=== PATIENT | male | born 1955 | race Caucasian/White ===

== ENCOUNTER 2018-01-21 15:12 | Outpatient (CLI) | payer OTHER, SELFPAY ==
[2018-01-21 15:55] LABS: HCT 40.4 % (40.0-50.0); HGB 13.5 g/dL (13.5-17.5); Mean Corp. HGB Concentration 33.4 g/dL (32.0-36.0); Mean Corpuscular Hemoglobin 31.8 pg (27.0-33.0); Mean Corpuscular Volume 95.1 fL (80-95); Mean Platelet Volume 10.6 fL (8.0-11.0); Platelet Count 253 x1000/uL (130-400); RBC 4.25 m/cumm (4.50-6.00); RBC Distribution Width 12.5 % (11.8-14.1); White Blood Cell Count 6.29 k/cumm (4.4-10.8)
[2018-01-21 17:23] LABS: ALT 32 U/L (12-78); AST 21 U/L (15-37); Alkaline Phosphatase 80 U/L (46-116); Amylase 66 U/L (25-115); Anion Gap 8.3 mmol/L (3-11); BUN 16 mg/dL (7-18); Bilirubin, Total 0.4 mg/dL (0.2-1.0); CO2 28.7 mmol/L (21.0-32.0); CREATININE 0.92 mg/dL (0.70-1.30); Calcium 9.6 mg/dL (8.5-10.1); Chloride 104 mmol/L (98-107); Glucose 89 mg/dL (70-100); Lipase 97 U/L (73-393); Potassium 4.8 mmol/L (3.5-5.1); Sodium 141 mmol/L (136-145); Total Protein 7.2 g/dL (6.4-8.2)
== END 2018-01-21 15:32 ==
PROVIDERS: PCP Nurse Practitioner; Visit Provider Nurse Practitioner
DX: R14.0 Abdominal distension (gaseous) (principal); K52.9 Noninfective gastroenteritis and colitis, unspecified
CPT/HCPCS: 36415; 80053; 83690; 85027; 82150

== ENCOUNTER 2018-02-26 08:29 | Emergency (ER) | payer OTHER, SELFPAY ==
[2018-02-26 08:34] VITALS: BP 160/96; PULSE 75; RESP 16; TEMP 36.2; O2SAT 98
--- NOTE | 2018-02-26 08:42 | W.ED.GENAD ---
Discharge Plan Disposition Patient Disposition: HOME Condition: Improving Discharge Details Chief Complaint: RespSymp Clinical Impression: Acute maxillary sinusitis Primary Care Provider: Kalli Morgan ED Provider: Zach Sneed Home Meds and New Rx's Prescriptions: New amoxicillin-pot clavulanate 875-125 mg tablet 1 tab PO BID 10 Days Qty: 20 RF: 0 Continue fluticasone 50 mcg/actuation spray,suspension 1 spray JAREK DAILY RF: 0 oxycodone-acetaminophen 5-325 mg tablet 1 tab PO BID MDD 2 tabs PRN (Reason: chronic pain) Qty: 60 RF: 0 ibuprofen 800 MG tablet 800 mg PO TID PRNQty: 90 RF: 11 amlodipine 10 MG tablet 10 mg PO DAILY Qty: 90 RF: 3 fluoxetine 20 MG capsule 20 mg PO DAILY RF: 0 losartan 100 MG tablet 100 mg PO DAILY 60 Days Qty: 60 RF: 3 Discharge Instructions Instructions: Sinusitis (ED) Additional Instructions: Home to rest today. Tylenol as needed for aches, pains, fever. May use Benadryl 25-50 mg at bedtime for sleep and to aid in decongestion. Liberally hydrate with fluids. Return if you have worsening symptoms or any other concerns. Continue your regular medications Medical Decision Making 62-year-old male with a history of recurrent and frequent sinus infections states that he has had 7-10 days of bilateral frontal sinus pain and pressure that followed a URI. No stiff neck or fever. No vomiting. He has not fallen or hurt himself in any way. Exam is consistent with acute maxillary sinusitis. I will place him on a course of Augmentin. Discussed with him home care as well as return precautions. He is stable for discharge at this time HPI General Mode of arrival: ambulatory. Date/Time Provider Initiated Documentation: 02/26/18 08:30. Limitations to Documentation: no limitations. Information obtained by: patient. History of Present Illness 62 year old M presents to the emergency department with the chief complaint of Bilateral frontal sinus pressure and congestion for 8-10 days following URI, described as moderate, Quality is described as aching, Patient reports no radiation. Patient started experiencing this day(s) and it has been constant. No relieving factors improve symptom(s), No exacerbating factors reported . Related Data Home Medications Medication Instructions Recorded Confirmed ibuprofen 800 mg PO TID PRN #90 tab-cap 01/25/17 02/26/18 amlodipine 10 mg PO DAILY #90 tab-cap 04/19/17 02/26/18 fluoxetine 20 mg PO DAILY tab-cap 06/12/17 02/26/18 losartan 100 mg PO DAILY 60 Days #60 tab-cap 10/05/17 02/26/18 fluticasone 50 mcg/actuation nasal 1 spray JAREK DAILY 11/29/17 02/26/18 spray,suspension oxycodone-acetaminophen 5 mg-325 1 tab PO BID PRN #60 tab MDD 2 tabs 02/21/18 02/26/18 mg tablet amoxicillin-pot clavulanate 1 tab PO BID 10 Days #20 tab 02/26/18 Previous Rx's Medication Instructions Recorded amlodipine 10 mg PO DAILY #90 tab-cap 04/19/17 losartan 100 mg PO DAILY 60 Days #60 tab-cap 10/05/17 oxycodone-acetaminophen 5 mg-325 1 tab PO BID PRN #60 tab MDD 2 tabs 02/21/18 mg tablet amoxicillin-pot clavulanate 1 tab PO BID 10 Days #20 tab 02/26/18 Allergies Allergy/AdvReac Type Severity Reaction Status Date / Time chlorthalidone AdvReac Intermediate PINON and Unverified 02/26/18 08:36 syncope sertraline AdvReac Intermediate diarrhea Unverified 02/26/18 08:36 lisinopril AdvReac Mild cough Unverified 02/26/18 08:36 General Stated Complaint: RespSymp JOHANNA: 4 Review of Systems Review of Systems 8 systems reviewed and otherwise negative PFSH Family History Father Personal history of malignant neoplasm Lithotripsy Family History Father Personal history of malignant neoplasm Social History current occupational status: employed 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 Pleasant, well groomed, interactive. HEAD: Normocephalic, atraumatic ENT: Mucous membranes moist, oropharynx unremarkable, External ear exam unremarkable, tympanic membranes congested but not distended erythematous. Bilateral maxillary sinus tenderness to percussion EYES: PERRL, EOMI NECK: Full ROM, no CAMERON, no menigismus CHEST/RESP: Nontender, clear to auscultation bilateral, no wheeze/rhonchi/rales CARDIOVASCULAR: RRR, no murmur, rub peng. 2+ Rad pulse bilateral ABDOMEN: Soft, nontender, no mass. +Bowel sounds EXT: Full ROM, no edema, no rash Neuro: Grossly normal neurologic exam, conversant, interactive. Psych: Speech fluent, thoughts congruent, affect normal Course Vital Signs Temperature 36.2 C L 02/26/18 08:34 Pulse 75 02/26/18 08:34 Respiratory Rate 16 02/26/18 08:34 Blood Pressure 160/96 H 02/26/18 08:34 Pulse Oximetry 98 02/26/18 08:34 Temperature 36.2 C L 02/26/18 08:34 Temperature Source Skin 02/26/18 08:34 Pulse 75 02/26/18 08:34 Respiratory Rate 16 02/26/18 08:34 Respiratory Effort Non-Labored 02/26/18 08:34 Blood Pressure 160/96 H 02/26/18 08:34 Blood Pressure Position Sitting 02/26/18 08:34 Pulse Oximetry 98 02/26/18 08:34 Oxygen Delivery Method Nasal Cannula 02/26/18 08:34 Pain Level 9 02/26/18 08:34
== END 2018-02-26 08:56 | disposition home or self-care (01) ==
LOC: ER 09:08
PROVIDERS: Emergency Provider Emergency Medicine; PCP Nurse Practitioner
DX: J01.00 Acute maxillary sinusitis, unspecified (principal); I10 Essential (primary) hypertension
CPT/HCPCS: 99283

== ENCOUNTER 2018-06-11 08:02 | Emergency (ER) | payer OTHER, SELFPAY ==
[2018-06-11 08:05] VITALS: BP 191/91; PULSE 86; RESP 20; TEMP 36.7; O2SAT 98
--- NOTE | 2018-06-11 08:33 | ED.GENADUL_ITS ---
Discharge Plan Disposition Patient Disposition: HOME Condition: Stable Discharge Details Chief Complaint: Nk/Back Pain Clinical Impression: Otitis media, Cervical paraspinal muscle spasm Primary Care Provider: Kalli Morgan ED Provider: Morena Magana Home Meds and New Rx's Prescriptions: New amoxicillin 500 mg capsule 500 mg PO TID 10 Days Qty: 30 RF: 0 Continued fluticasone propionate 50 mcg/actuation spray,suspension 1 spray JAREK DAILY RF: 0 amlodipine 10 MG tablet 10 mg PO DAILY Qty: 90 RF: 3 fluoxetine 20 MG capsule 20 mg PO DAILY RF: 0 losartan 100 MG tablet 100 mg PO DAILY 60 Days Qty: 60 RF: 3 ibuprofen 800 mg tablet 800 mg PO TID PRN (Reason: pain) Qty: 270 RF: 3 betamethasone dipropionate 0.05 % ointment 1 applic TP BID PRN (Reason: rash arms) Qty: 45 RF: 1 oxycodone-acetaminophen 5-325 mg tablet 1 tab PO BID MDD 2 tabs PRN (Reason: chronic pain) Qty: 46 RF: 0 Discharge Instructions Instructions: Cervical Strain (ED), Otitis Media (ED) Additional Instructions: Alternate Tylenol and Motrin as needed and directed for pain. Take the antibiotics until finished. Follow-up with your primary care doctor in 2 days for reevaluation and for referral to ENT if your symptoms do not improve or worsen. Return immediately to the emergency department any worsening or concerning symptoms. Discharge Data Discharge Physician: Morena Magana Medical Decision Making 63-year-old male with a history of hypertension, high cholesterol depression who presents with left ear pain for the past week and now with radiation down into his left neck. 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 States his symptoms are similar to previous ear infection in the past. He denies fever, headache, anterior or right-sided neck pain, sore throat, cough, decreased hearing or ear drainage. He does admit to mild tinnitus chronically. Blood pressure hypertensive, remainder vitals within normal limits. Afebrile. Patient appears nontoxic. Patient easily ambulatory in the ED. Patient's left TM appears dull without erythema, drainage. He has narrow bilateral external auditory canals. There is no tenderness palpation of tragus or pain with pulling on auricle and not consistent with otitis externa. He has tenderness palpation of his left lateral neck but no obvious boggy lymphadenopathy, no submitted for swelling, no drooling, no trismus, no periauricular adenopathy, no tenderness to palpation, edema, or erythema of left mastoid. He has reproducible pain in his left neck with movement of his head. Discussed with patient that his symptoms could be due to a viral ear infection, which may resolve with Tylenol Motrin and time. As his symptoms have been present for a week, discussed that this may be an early bacterial infection. His left-sided neck pain appears musculoskeletal likely due to cervical muscle spasm due to radiation of pain from his left ear. Will send home with prescription for antibiotics. Patient instructed to alternate Tylenol Motrin. He is instructed to follow with his primary care doctor for reevaluation and for consideration of steroids and/or referral to ENT if his symptoms do not improve. Just prior to discharge, patient's blood pressure 181/102. He states he did take his blood pressure medication today. Again he denies any headache, chest pain, shortness of breath and has no focal deficits. He states he will follow- up with his primary care doctor for this. Patient instructed return to the emergency department any worsening or new concerning symptoms. HPI General Mode of arrival: ambulatory . Date/Time Provider Initiated Documentation: 06/11/18 08:16 . Limitations to Documentation: no limitations . Information obtained by: patient . HPI Narrative: Patient is a 63-year-old male with a history of hypertension, high cholesterol depression who presents with left ear pain for the past week. Patient states he wears earplugs throughout the day while at work due to mild machinery. He states he is taking earplugs in and out of the ear multiple times throughout the day. Patient states he has had an ear infection in the past before and states this feels similar. He states the inner ear pain has improved somewhat, and now mainly has pain extending down his neck from his left ear. He states the pain is worse with movement of his head. He denies any fever, headache, decreased hearing, or drainage. He admits to mild tinnitus. He states he took ibuprofen last night for pain. He denies any sore throat, coughing and states he has been able to eat and drink normally. Related Data Home Medications Medication Instructions Recorded Confirmed amlodipine 10 mg PO DAILY #90 tab-cap 04/19/17 06/11/18 fluoxetine 20 mg PO DAILY tab-cap 06/12/17 06/11/18 losartan 100 mg PO DAILY 60 Days #60 tab-cap 10/05/17 06/11/18 fluticasone propionate 50 1 spray JAREK DAILY 11/29/17 06/11/18 mcg/actuation nasal spray,suspension ibuprofen 800 mg tablet 800 mg PO TID PRN #270 tab-cap 04/17/18 06/11/18 betamethasone dipropionate 0.05 % 1 applic TP BID PRN #45 gm 05/16/18 06/11/18 topical ointment oxycodone-acetaminophen 5 mg-325 1 tab PO BID PRN #46 tab MDD 2 tabs 05/16/18 06/11/18 mg tablet amoxicillin 500 mg PO TID 10 Days #30 cap 06/11/18 Previous Rx's Medication Instructions Recorded amlodipine 10 mg PO DAILY #90 tab-cap 04/19/17 losartan 100 mg PO DAILY 60 Days #60 tab-cap 10/05/17 ibuprofen 800 mg tablet 800 mg PO TID PRN #270 tab-cap 04/17/18 betamethasone dipropionate 0.05 % 1 applic TP BID PRN #45 gm 05/16/18 topical ointment oxycodone-acetaminophen 5 mg-325 1 tab PO BID PRN #46 tab MDD 2 tabs 05/16/18 mg tablet amoxicillin 500 mg PO TID 10 Days #30 cap 06/11/18 Allergies Allergy/AdvReac Type Severity Reaction Status Date / Time chlorthalidone AdvReac Intermediate PINON and Verified 06/11/18 08:09 syncope sertraline AdvReac Intermediate diarrhea Verified 06/11/18 08:09 lisinopril AdvReac Mild cough Verified 06/11/18 08:09 General Stated Complaint: Nk/Back Pain JOHANNA: 3 Review of Systems Review of Systems All systems reviewed & are unremarkable except as noted in HPI and below Constitutional Reports as per HPI, Denies chills and Denies fever(s) Eyes Denies blurry vision ENT Denies dizziness, Denies sore throat and Denies throat swelling Cardiovascular Denies chest pain and Denies dyspnea Respiratory Denies cough and Denies dyspnea Gastrointestinal Denies abdominal pain, Denies diarrhea and Denies vomiting Genitourinary Denies hematuria and Denies dysuria Musculoskeletal Denies back pain and Denies numbness Integumentary/Breasts Denies lesions and Denies rash Neurologic Denies dizziness, Denies focal weakness and Denies numbness Allergic/Immunologic Denies throat swelling [facility] Medical History Hyperlipemia (Acute) Depression (Chronic) HTN (hypertension) (Chronic) Surgical History Hx of lithotripsy (Acute) Lithotripsy Family History Father Personal history of malignant neoplasm Social History Smoking/Tobacco Use Status: Former Tobacco Use Alcohol Intake: current Alcohol Intake frequency: 3 or more drinks per day [place] type: beer Drug use: Occasionally Substance use type: marijuana 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[employer], 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 What type of physical activity do you participate in: walking Do you feel safe at home: Yes Do you feel safe in your relationship?: Yes Exam Const General: cooperative, healthy appearing and no acute distress HENMT Head: normal to inspection Ears: hearing grossly normal bilaterally, external ears normal, mastoids normal bilaterally, no periauricular adenopathy, TM abnormal dull on the left; not with effusion and not erythematous and other (b/l external auditory canals narrow, no erythema, drainage, rash) General nose exam: external nose normal and nares normal Face and sinus: normal facial exam and sinuses nontender Mouth: oral mucosae normal, no drooling and no trismus Teeth and gingiva: dentition normal Throat: posterior oropharynx normal Eyes General: appearance normal, both eyes and all related structures Periorbital: periorbital findings normal Conjunctivae: conjunctivae normal Sclera: sclerae normal EOM: EOM intact bilaterally Neck Neck: normal visual inspection, full ROM, no lymphadenopathy, no meningeal signs, trachea midline, supple and No submandibular swelling Resp Effort & Inspection: normal respiratory effort and able to speak in complete sentences Auscultation: clear to auscultation bilaterally Cardio Rate: regular rate Rhythm: regular rhythm Skin General skin exam: no rashes or lesions noted Neuro General: alert, awake and oriented x3 Motor: muscle tone normal throughout Extrem General: normal to inspection and full ROM Psych Appearance: grossly normal Affect: normal affect Course Vital Signs Temperature 98.1 F 06/11/18 08:05 Pulse 86 06/11/18 08:05 Respiratory Rate 20 06/11/18 08:05 Blood Pressure 191/91 H 06/11/18 08:05 Pulse Oximetry 98 06/11/18 08:05 Temperature 98.1 F 06/11/18 08:05 Temperature Source Temporal Artery Scan 06/11/18 08:05 Pulse 86 06/11/18 08:05 Respiratory Rate 20 06/11/18 08:05 Respiratory Effort Non-Labored 06/11/18 08:05 Blood Pressure 191/91 H 06/11/18 08:05 Blood Pressure Position Sitting 06/11/18 08:05 Pulse Oximetry 98 06/11/18 08:05 Pain Level 8 06/11/18 08:05
[2018-06-11 08:53] VITALS: BP 181/102; PULSE 80; RESP 16; TEMP 37.2; O2SAT 96
== END 2018-06-11 08:56 | disposition home or self-care (01) ==
LOC: ER 08:53
PROVIDERS: Emergency Provider Physician Assistant; PCP Nurse Practitioner
DX: H66.92 Otitis media, unspecified, left ear (principal); M62.838 Other muscle spasm; I10 Essential (primary) hypertension
CPT/HCPCS: 99283

== ENCOUNTER 2019-04-30 07:00 | Outpatient (CLI) | payer OTHER, SELFPAY ==
[2019-04-30 08:20] LABS: ALT 40 U/L (16-63); AST 22 U/L (15-37); Albumin 3.9 g/dL (3.4-5.0); Alkaline Phosphatase 87 U/L (46-116); Anion Gap 9.8 mmol/L (3-11); BUN 14 mg/dL (7-18); Bilirubin, Total 0.5 mg/dL (0.2-1.0); CO2 26.2 mmol/L (21.0-32.0); CREATININE 0.92 mg/dL (0.70-1.30); Calcium 9.2 mg/dL (8.5-10.1); Calculated LDL 144 mg/dL (<100); Chloride 107 mmol/L (98-107); Cholesterol 223 mg/dL (<200); Glucose 112 mg/dL (74-106); HDL Cholesterol 62 mg/dL (40-60); Potassium 4.8 mmol/L (3.5-5.1); Sodium 143 mmol/L (136-145); Total Protein 7.1 g/dL (6.4-8.2); Triglyceride 85 mg/dL (<150)
== END 2019-04-30 07:20 ==
PROVIDERS: PCP Nurse Practitioner; Visit Provider Nurse Practitioner
DX: I10 Essential (primary) hypertension (principal); E78.5 Hyperlipidemia, unspecified
CPT/HCPCS: 36415; 80053; 80061

== ENCOUNTER 2020-02-20 11:06 | Outpatient (CLI) | payer OTHER, SELFPAY ==
[2020-02-21 17:06] LABS: COVID-19 RT-PCR Result NEGATIVE (Negative)
== END 2020-02-20 11:26 ==
PROVIDERS: PCP Nurse Practitioner; Visit Provider Nurse Practitioner
DX: Z20.828 Contact with and (suspected) exposure to other viral communicable diseases (principal)
CPT/HCPCS: U0003

== ENCOUNTER 2020-06-24 08:24 | Outpatient (CLI) | payer BC, SELFPAY ==
[2020-06-25 16:17] LABS: COVID-19 RT-PCR UVMMC Result Negative (Negative)
== END 2020-06-24 08:25 | disposition home or self-care (01) ==
PROVIDERS: PCP Nurse Practitioner; Visit Provider Nurse Practitioner
DX: Z20.822 Contact with and (suspected) exposure to COVID-19 (principal)
CPT/HCPCS: U0003

== ENCOUNTER 2020-07-15 01:04 | Outpatient (CLI) | payer OTHER, BC, SELFPAY ==
--- NOTE | 2020-07-15 07:00 | DI.MRI_ITS ---
Exam(s) MR LUMBAR SPINE WO EXAM: MR LUMBAR SPINE WO CLINICAL HISTORY: Persistent pain and lower extremity weakness,LUMBAR PAIN WITH RAD DOWN LEG,. TECHNIQUE: Multiplanar multisequence MRI of the Lumbar spine was performed. COMPARISON: CR LUMBAR SPINE COMPLETE from 05/23/2012 CT RENAL COLIC WO CONTRAST from 05/07/2017 FINDINGS: Conus medullaris is at normal level. There is no evidence of conus mass nor subjacent clumping of in trathecal nerve roots to suggest arachnoiditis. The distal thecal sac appears unremarkable.There is no evidence of Tarlov intrasacral cysts nor other significant findings within the sacral canal. Bones:There are no compression fractures nor ominous osseous lesions. However, there is a Schmorl's node invagination in the posterior aspect of the inferior endplate of L 4 with some mild surrounding edema implying that this is recent. There is also mild edema in the subjacent superior half of L5 ve rtebral body with a should smaller Schmorl's node invagination in the mid aspect of the superior endp late of L5. No compression fracture. There are no ominous osseous lesions. With respect to the individual levels... T12-L1: Normal disc height and signal. Annular bulging but without a dominant disc herniation. Bouse l dimensions within normal limits. L1-2: Mild relatively uniform disc space narrowing. Shallow non acute Schmorl's node invagination in the mid inferior endplate of L1. Some posterior bony ridging is noted. There is broad annular bulg ing. This extends into the floor of the exiting left neural foramen but without significant foramina l stenosis on either side. Central canal dimensions are lower normal. Mild facet degenerative ayoub es. L2-3: This level exhibits preserved disc height and signal. There is mild narrowing of the disc spac e lateral left with a lateral left disc bulge at the level of the outer aspect of the exiting left ne ural foramen. However, there is no prominent foraminal stenosis the left side at this level. Exitin g right neural foramen is nicely patent. There is mild symmetrical annular bulging posteriorly which flattens the anterior aspect of the thecal sac. This results in mild central canal stenosis at this level. There are mild degenerative changes in both facet joints at this level. L3-4: There is moderate narrowing of the disc space at this level, more prominent posteriorly than an teriorly. There is broad annular bulging at this level which flattens the anterior aspect of the the angelique sac, resulting in mild-moderate central canal stenosis. The annular bulging extends into the rashel or of the exiting left neural foramen with overlying posterior bony ridging. There is mild left-side d foraminal stenosis. Also mild right-sided foraminal stenosis. Mild degenerative changes in the fa cet joints. L4-5: This level exhibits mild decreased disc height. As described above there is an acute or subacu te Schmorl's node invagination into the inferior endplate of L4 with surrounding edema and there is a lso smaller Schmorl's node in the adjacent superior endplate of L5 with some surrounding edema. At t his level there is relatively symmetrical broad annular bulging with resultant flattening of the ante rior aspect of the thecal sac, resulting in moderate-severe central spinal canal stenosis. There is a small superimposed central subligamentous disc protrusion. Laterally the bulging annulus extends i nto the floor of both exiting neural foramina. On the right side there is mild-moderate foraminal st enosis. On the left side there is no significant foraminal stenosis despite the annular bulging. Th e difference here is the more prominent facet arthropathy on the right side. L5-S1: This level exhibits advanced disc space narrowing and anterolateral osteophytes on the right s sobeida. There is subtle suggestion of partial left laminectomy defect at this level. There is posterio r bony ridging and broad annular bulging at this level. This annular bulging contacts the anterior a spect of the thecal sac but central canal dimensions are lower normal. With respect to the exiting n eural foramina, there is mild-moderate foraminal stenosis on the right side, this related to the adva nced disc height loss and some degenerative change in the facet joint. A lesser amount of foraminal stenosis noted on the left side due to lesser amount of arthropathy in the left facet joint. Soft tissues: Parapelvic cysts are noted in both kidneys. Please note the kidneys only partially in cluded in the field of view here. IMPRESSION: 1. Multilevel findings as described individually above. There is evidence of prior partial left lami nectomy at L5-S1 level. Despite all of the findings described above, there is no critical central sp inal canal stenosis nor severe foraminal stenosis. The most significant central canal stenosis is at the L4-5 level which is moderate or moderate-severe. This is the level which also exhibits some sub endplate marrow edema on both sides of this disc space due to subacute Schmorl's node invaginations as described above. 2. Multilevel asymmetric facet arthropathy. No listhesis evident. 3. This findings as above with a small central subligamentous disc protrusion superimposed upon the a nnular bulging at L4-5 level. However, there is noted prominent/dominant disc herniation here. 4. There is no evidence of abnormal fluid collection in the epidural and paraspinal region, given pr ior surgery here. 5. Incidentally noted are what appear to be bilateral parapelvic cysts in both kidneys. Please note the kidneys are only partially included in the field of view here. I note that prior abdominal CT s can performed April 2017 revealed a 4 millimeter calculus in the right ureteropelvic junction with ipsilateral hydronephrosis at that time. Parapelvic cysts were so evident in the kidneys at that ti me, these more prominent on the left side. DATA REPOSITORY:
== END 2020-07-15 01:24 ==
PROVIDERS: PCP Nurse Practitioner; Visit Provider Nurse Practitioner Family
DX: M54.5 Low back pain (principal); M79.605 Pain in left leg; Z98.890 Other specified postprocedural states; M51.17 Intervertebral disc disorders with radiculopathy, lumbosacral region; M51.46 Schmorl's nodes, lumbar region
CPT/HCPCS: 72148

== ENCOUNTER → 2021-10-03 00:44 | Outpatient (CLI) | payer OTHER, BC, SELFPAY ==
--- OUTSIDE RECORDS SUMMARY | 2021-10-03 00:46 | XMS_ITS | Encounter Summary ---
:1955 Author Organization [facility] [place] [address] Care Team Providers Name Role Phone Kalli Morgan Kurt JURADO Primary Care Provider Reason for Visit Reason Onset Date Comments TeleHealth 01/27/2021 Encounter Details Date Type Department Care Team Description 01/27/2021 Telephone [place] [facility] [place]oza [place] [facility] [place] [address] NEUROSURGERY [phone] [place], [place] [address] (Wo rk) Social History Tobacco Use Types Packs/Day Years Used Date Former Smoker Cigarettes Smokeless Tobacco: Never Used Sex Assigned at Date Recorded Not on file documented as of this encounter Miscellaneous Notes Telephone Encounter - Wendy Gonzalez RN - 01/27/2021 2:47 PM EST Spoke to this patient by phone to review their medications and allergies prior to their upcoming tele-appointment with the Neurosurgery provider. Medications and allergies reviewed, verified and updated as needed. 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
--- OUTSIDE RECORDS SUMMARY | 2021-10-03 00:46 | XMS_ITS | Encounter Summary ---
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, lumbar region Radiculopathy, lumbar region Kalli Morgan APRN Simmons, Nathan E, MD [address] [facility] [facility] [place], [place] NEUROSURGERY [id number] [place], [place] [id number] Fax: Referral ID Status Reason Start Expiration Visits Visits Date Date Requested Authorized [id number] Authorized Consult, 12/16/2020 12/16/2021 6 6 [facility] PCP Updated and/or Approved Encounter Details Date Type Department Care Team Description 02/01/2021 TH Visit Neurosurgery at [facility] King Cardoza Low back pain (TeleHealth) [facility] MD Steve radiating to left Drive [facility] [place] [place] [address] CENTER [phone] NEUROSURGERY [place], [place] [address] Social History Tobacco Use Types Packs/Day Years Used Date Former Smoker Cigarettes Smokeless Tobacco: Never Used Sex Assigned at Date Recorded Not on file documented as of this encounter Progress Notes King Cardoza MD - 02/01/2021 9:30 AM EST I just spoke with Zach Morse on the phone. He is a 65-year-old male that underwent an L5-S1 redo discectomy in 2003. Apparently he had a work-related accident earlier this year causing him significant back pain and what he describes as knee pain though he states that the pain radiates down his leg to his knee. He states that the pain radiates along the inside of his leg but describes the knee painis particularly bothersome and it seems to cause him more problems at night. He is undergone an L3-4epidural injection which gave him transient relief. He was then referred for neurosurgical evaluation. Unfortunately, his MRI is not overwhelmingly convincing as to the source of this pain. The radiologyreports that he has moderate or moderate to severe L4-5 stenosis as the worst level. My interpretation is that he probably has with his worst stenosis at L3-4 though I would classify this as moderate. I can still make out the individual nerve roots. He has moderate or slightly less stenosis at L4-5. He has some mild foraminal narrowing at both of these levels. The L5-S1 level shows typical postoperative changes. Given his pattern of pain, 1 would think about an L3 radiculopathy perhaps. However I do not see anyclear compressive forces on the L3 nerve root. The stenosis at L3-4 would more likely irritate the L4 nerve root and this would not fit with his symptom presentation. Therefore I told Mr. Morse that while I understand the referral to surgery given the failure of prior treatments, I really do not have a clear-cut anatomical source for his pain. This is not to say that 1 of these levels is not contributing but the anatomical severity of stenosis, etc. is simply not ov erwhelmingly significant. Therefore I recommended that he undergo an EMG as well as standing flexion- extension films. Hopefully this will allow us to better localize as to the specific cause for his pain. documented in this encounter Plan of Treatment Upcoming Encounters Date Type Specialty Care Team Description 10/11/2021 TH Visit (TeleHealth) Neurosurgery Lucian Cardoza MD [facility] [address] [place], [place] [address] (Wo rk) Scheduled Orders Name Type Priority Associated Diagnoses Order S chedule EMG - 2 EXTR W/WO Neurology Routine Low back pain radiating Expected: RELATED PARASPINAL to left lower extremit y 02/08/2021, Expires: 08/10/2021 documented as of this encounter Results XR Lumbar Spine Flexion Extension Only (07/21/2021 8:09 AM EDT) Anatomical Region Laterality Modality L-spine N/A Digital Radiography Specimen (Source) Anatomical Location Collection Method / Collectio n Time Received Time / Laterality Volume Impressions 07/21/2021 8:53 AM EDT No dynamic instability. Thank you for letting us participate in the care of this patient. ??If you are a health care provider and have any questi ons regarding this report, please contact the number below. ??For patients who have questions please contact the health toddler caregiver that requested your imaging first. ? Narrative 07/21/2021 8:53 AM EDT EXAMINATION: XR LUMBAR SPINE FLEXION EXTENSION ONLY CLINICAL HISTORY: LLEP TECHNIQUE: Flexion and extension lateral views of [facility] lumbar spine COMPARISON: MRI of the lumbar spine June 2020 FINDINGS: Intact vertebral body heights. Slight re trolisthesis of L1 and L2 is unchanged with flexion and extension. Similar mild disc height loss at L2-3 L4 and L4-L5. Similar moderate disc height loss at L5- S1. Similar multilevel bilateral facet degeneration. Procedure Note Marv Rodríguez MD - 07/21/2021Formatting o f this note might be different from the original. EXAMINATION: XR LUMBAR SPINE FLEXION EXT ENSION ONLY CLINICAL HISTORY: LLEP TECHNIQUE: Flexion and extension lateral views of t he lumbar spine COMPARISON: MRI of the lumbar spine June 2020 FINDINGS: Intact vertebral body heights. Slight re trolisthesis of L1 and L2 is unchanged with flexion and extension. Similar mild disc height loss at L2-3 L4 and L4-L5. Similar moderate disc height loss at L5- S1. Similar multilevel bilateral facet degeneration. IMPRESSION No dynamic instability. Thank you for letting us participate in the care of this patient. If you are a health care provider and have any questi ons regarding this report, please contact the number below. For patients w ho have questions please contact the health toddler caregiver that requested your imaging first. King Cardoza MD IMG DX ORDERABLES documented in this encounter Visit Diagnoses Diagnosis Low back pain radiating to left lower ex tremity Low back pain radiating to left lower ex tremity documented in this encounter Care Teams Manager Government Relationship Specialty Start Date End Date Kalli Morgan APRN PCP - General Internal Medicine 01/22/[address] [place] [address] documented as of this encounter
--- OUTSIDE RECORDS SUMMARY | 2021-10-03 00:46 | XMS_ITS | Encounter Summary ---
:1955 Author Organization [facility] [address] Care Team Providers Name Role Phone Kalli Morgan APRN Primary Care Provider Reason for Referral Diagnostic Test (Routine) - New Request Specialty Diagnoses / Procedures Referred By Contact Refer red To Contact Radiology Diagnoses Low back pain radiating to left lower extremity King Cardoza MD [facility] Rad Mri Procedures MRI Lumbar Spine wo Contrast (Generic) [facility] [place] [address] [place] [address] Referral ID Status Reason Start Expiration Visits Visits Date Date Requested Authorized [id number] New Request Specialty 08/02/2021 02/02/2023 1 1 Service Requested Encounter Details Date Type Department Care Team Description 08/02/2021 TH Visit Neurosurgery at [facility] King Cardoza Low back pain (TeleHealth) [facility] MD Steve radiating to left [address] [facility] [place] [place] [address] [place] [address] NEUROSURGERY [place], [place] [address] Social History Tobacco Use Types Packs/Day Years Used Date Former Smoker Cigarettes Smokeless Tobacco: Never Used Alcohol Use Standard Drinks/Week Comments Yes 2 (1 standard drink = 0.6 oz pure alcoho l) has a few beers an evening Alcohol Habits Answer Date Recorded How often do you have a drink containing Not asked alcohol? How many drinks containing alcohol do you Not asked have on a typical day when you are drinking? How often do you have six or more drinks on Not asked one occasion? Comment: has a few beers an evening 08/02/2021 Sex Assigned at Date Recorded Not on file documented as of this encounter Progress Notes King Cardoza MD - 08/02/2021 9:45 AM EDT I just spoke with Zach on the phone. He is a 66-year-old male that was referred for a left proximal leg radiculopathy. At the initial evaluation, we did not see any clear-cut severe neural compression and therefore sent him for flexion-extension films as well as an EMG Unfortunately, neither has offered any additional information as to the root cause of his pain. The flexion-extension films did not show any evidence of dynamic instability. The EMG suggested for a possible peripheral neuropathy but no evidence of a radiculopathy. Therefore we are left with a symptomatic left-sided radiculopathy in the setting of at most moderatestenosis at the L3-4 and to a lesser degree L4-5 level. I told him that while surgery could be entertained, this simply does not look to be the degree of narrowing that I would be enthusiastic about using surgical interventions. Therefore he is going to think about looking into other treatments such as pain clinic and possibly a spinal cord stimulator. In the meantime we did agree that his MRI is over a-year-old and that updating this to get a more recent evaluation and look for any changes given that his pain has persisted despite previous conservative treatments. If there is a greater degree of stenosis then we could reassess for potential surgical intervention. documented in this encounter Plan of Treatment Upcoming Encounters Date Type Specialty Care Team Description 10/11/2021 TH Visit (TeleHealth) Neurosurgery Lucian Cardoza MD [facility] NEUROSURGERY [place], [place] [address] (Wo rk) Scheduled Orders Name Type Priority Associated Diagnoses Order S chedule MRI Lumbar Spine wo Imaging Routine Low back pain radiati ng Expected: 09/02/2021, Contrast (Generic) to left lower extremit y Expires: 03/04/2022 documented as of this encounter Visit Diagnoses Diagnosis Low back pain radiating to left lower ex tremity documented in this encounter Care Teams Piano And Organ Refinisher Relationship Specialty Start Date End Date Kalli Morgan APRN PCP - General Internal Medicine 01/22/[address] [place] [address] documented as of this encounter
--- OUTSIDE RECORDS SUMMARY | 2021-10-03 00:46 | XMS_ITS | Encounter Summary ---
:1955 Author Organization [facility] [place] [address] Care Team Providers Name Role Phone Kalli Morgan ADRIEN Primary Care Provider Encounter Details Date Type Department Care Team Description 03/30/2021 Telephone [place] [facility] [place] [place] [address] Social History Tobacco Use Types Packs/Day Years Used Date Former Smoker Cigarettes Smokeless Tobacco: Never Used Sex Assigned at Date Recorded Not on file documented as of this encounter Miscellaneous Notes Telephone Encounter - Karey Farr - 04/07/2021 12:51 PM EST Called pt scheduled XR to coord with EMG on 06/13 Scheduled TOV with RAMA for 06/21 Mailed appt card. Telephone Encounter - Karey Farr - 03/30/2021 9:[address] Cardoza, Patient calling re: his 02/01 Tele-health appointment he had with you and scheduling an EMG. Please enter Referral for EMG so he can get this scheduled. Thank you, Karey documented in this encounter Plan of Treatment Upcoming Encounters Date Type Specialty Care Team Description 10/11/2021 TH Visit (TeleHealth) Neurosurgery Lucian Cardoza MD [facility] [address] [place], [place] [address] (Wo rk) documented as of this encounter Visit Diagnoses Not on filedocumented in this encounter Care Teams Automobile Racer Relationship Specialty Start Date End Date Kalli Morgan APRN PCP - General Internal Medicine 01/22/[address] [place] [address] documented as of this encounter
--- OUTSIDE RECORDS SUMMARY | 2021-10-03 00:46 | XMS_ITS | Encounter Summary ---
:1955 Author Organization [facility] [place] [address] Care Team Providers Name Role Phone Kalli Morgan APRN Primary Care Provider Encounter Details Date Type Department Care Team Description 10/27/2020 Telephone Pain and Spine Kandi bonilla [place] [facility] [place] [address] Social History Tobacco Use Types Packs/Day Years Used Date Former Smoker Cigarettes Smokeless Tobacco: Never Used Sex Assigned at Date Recorded Not on file documented as of this encounter Miscellaneous Notes Telephone Encounter - Jany Ortiz RN - 10/27/2020 3:36 PM EDT Contact made with patient or instruments sales representative as identified in contacts 1. 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 2. Has pt started any new medications or supplements in the past two weeks? No 3. Have any of the following occurred within the two weeks before the procedure date? a. Patient is having a Covid vaccine or other vaccine No b. Patient has been exposed to anybody with a contagious illness such as Covid, flu, chicken pox No c. Patient has any symptoms of illness such as: cough, sore throat, fever, N/V/D Previously Yes . Pthad a cough and sneezing, which has been resolved for one week. He never had fevers, sore throat or n/v/d. d. Patient is taking antibiotics to treat an infection No e. Patient has any skin rashes, breakdown, blisters or open wounds No f. Patient has had any hospitalizations, ED visits, surgery, other procedure, dental procedure No g. Patient has taken oral steroids or had a steroid injection No 4. Has the patient's pain resolved or significantly improved such as a rating of 3/10 or less? No 5. Was patient instructed to stop any medications? No if yes: a. Name of medication(s): b. Confirm date of last dose: 6. Is patient having a nerve block: No a. If yes instructed to not take any pain medication for 12 hours before your procedure. 7. Patient instructed to take any prescribed medications that they were not told to stop, especiallyblood pressure medication, because their procedure may be cancelled if their blood pressure is too high. 8. Was patient instructed to follow NPO guidelines: No if yes, the following instructions were reviewed: a. You may eat up to 6 hours before your procedure b. You may have clear liquids only up to 2 hours before your procedure: water, apple juice, satnam mary, sprite, popsicles, broth, tea or coffee plain or with sweetener, absolutely no dairy products, nomilk including soy, oat, almond. 9. Does patient have a pacemaker? No a. If yes, document that cardiology was called and notified. 10. Additional notes if applicable: Patient expressed understanding and agreement with instructions Yes Patient denies further questions Yes Abdifatah RN documented in this encounter Plan of Treatment Upcoming Encounters Date Type Specialty Care Team Description 10/11/2021 TH Visit (TeleHealth) Neurosurgery Lucian Cardoza MD [facility] NEUROSURGERY [place], [place] [address] (Wo rk) documented as of this encounter Visit Diagnoses Not on filedocumented in this encounter Care Teams Supervisor Picking Crew Relationship Specialty Start Date End Date Kalli Morgan APRN PCP - General Internal Medicine 01/22/18 [address] [place] [address] documented as of this encounter
--- OUTSIDE RECORDS SUMMARY | 2021-10-03 00:46 | XMS_ITS | Encounter Summary ---
:1955 Author Organization [facility] [place] [address] Care Team Providers Name Role Phone Kalli Morgan APRN Primary Care Provider Encounter Details Date Type Department Care Team Description 07/15/2020 Ancillary Procedure Radiology at [facility] Bill Diego MD [address] [facility] [place] [address] NEUROSURGERY-[place], [place] [address] (Wo rk) Social History Tobacco Use Types Packs/Day Years Used Date Never Assessed Sex Assigned at Date Recorded Not on file documented as of this encounter Plan of Treatment Upcoming Encounters Date Type Specialty Care Team Description 10/11/2021 TH Visit (TeleHealth) Neurosurgery Lucian Cardoza MD [facility] NEUROSURGERY [place], [place] [address] (Wo rk) documented as of this encounter Procedures Procedure Name Priority Date/Time Associated Diagnosis Comme nts FILM LIBRARY Routine 07/15/2020 12:00 AM Results for this STORAGE ONLY MR EDT procedure ar e in SPINE the results section. documented in this encounter Results Film Library- Storage Only MR Spine (07/15/2020 12:00 AM EDT) Specimen (Source) Anatomical Location Collection Method / Collectio n Time Received Time / Laterality Volume Narrative [facility] - 07/23/2020 1:42 PM EDT This exam is auto-finalizing. It's purpo se is for storage only. Bill Diego MD IMG FILM LIBRARY ORDERABLES Performing Organization Address City/State/ZIP Code Phon e Number [facility] [place], [place] documented in this encounter Visit Diagnoses Not on filedocumented in this encounter Care Teams Junior Estimator Relationship Specialty Start Date End Date Kalli Morgan APRN PCP - General Internal Medicine 01/22/18 [address] [facility] [place] [address] documented as of this encounter
--- OUTSIDE RECORDS SUMMARY | 2021-10-03 00:46 | XMS_ITS | Encounter Summary ---
:1955 Author Organization [facility] [place] [address] Care Team Providers Name Role Phone Kalli Morgan APRN Primary Care Provider Reason for Visit Reason Comments Back Pain Left Leg Pain Consultation (Routine) - Closed Specialty Diagnoses / Procedures Referred By Contact Refer red To Contact [facility] Diagnoses Low back pain Pain in left leg Spine - W/C - Lumbar stenosis/ left leg pain/ MRI 07/15/20 in [facility]/ has had injections/ been doing PT Chika Lazo, [facility] [address] [place] [address] [phone] Fax: Referral ID Status Reason Start Date Expiration Date Visits Requ ested Visits Authorized [id number] Closed 09/02/2020 09/02/2021 1 1 Encounter Details Date Type Department Care Team Description 10/08/2020 Office Visit [facility] Alphonso Valencia dd, MD Left lumbar radiculopathy; at [facility] Lumbar spondylosis; [facility] Spinal stenosis of lumbar region, unspec ified whether neurogenic claudication present; [place] [address] Sacroiliac dysfunction [place], [place] [phone] (Work) [phone] Social History Tobacco Use Types Packs/Day Years Used Date Former Smoker Cigarettes Smokeless Tobacco: Never Used Sex Assigned at Date Recorded Not on file documented as of this encounter Last Filed Vital Signs Vital Sign Reading Time Taken Comments Blood Pressure 157/105 10/08/2020 9:25 AM EDT Pulse 72 10/08/2020 9:25 AM EDT Temperature - - Respiratory Rate - - Oxygen Saturation - - Inhaled Oxygen Concentration - - Weight 95.3 kg (210 lb) 10/08/2020 9:25 AM EDT Height 175.3 cm (5' 9) 10/08/2020 9:25 AM EDT Body Mass Index 31.01 10/08/2020 9:25 AM EDT documented in this encounter Progress Notes Nish Valencia MD - 10/08/2020 9:30 AM EDT Chief Complaint Patient presents with ??? Back Pain ??? Left Leg Pain Subjective: Zach Morse is a 65 y.o. male who presents for Physical Medicine and Rehabilitation consultation, at the request of Chika Lazo APRN. He reports primary symptoms of constant stabbing pain in left anterior knee and subpatellar region, numbness in the anterior left distal thigh with radiation to the proximal leg. The sensory symptoms are worst at night or with prolonged driving. Additional symptoms include focal pain in left low lumbosacral region. This pain is intermittent, worst in the morning and can be increased by bed transfers or forward flexion. Onset of symptoms: The patient states that the current symptoms developed acutely on 01/13/2020 as aresult of a work-related injury. The patient is employed by [employer]. 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 He drilled holes in the decks while in a forward flexed position, then welded and flipped the decks over on a table at a distance from his body. Pain characteristics: Pain is constant in left knee and intermittent in left low back. The pain is described as stabbing or knifing, while low back pain is described as sharp. Pain is currently graded at 6/10 in intensity. He reports no change in the frequency or intensity of pain over time. Exacerbating factors: The pain is increased by prolonged ambulation, prolonged static standing, intermediate forward flexion or lying in supine. Low back pain is increased by prolonged static standing,weed whacking, lifting, operating a push mower and by bed transfers. Alleviating factors: Ibuprofen and Percocet. The former is taken each morning and the latter at bedtime. The patient denies contiguous lower extremity pain radiation. Left lower extremity sensory symptoms are as noted above. He reports one episode of buckling in the left knee, but frequent episodes of near giving out. He denies bowel/bladder dysfunction. Gait is described as cautious and guarded due to left knee pain. Current treatment: The patient has experienced temporary relief for a few days at a time with aquatherapy. He has had two courses of oral steroids. These provided partial relief early on in his course. Work status: The patient has been out of work since late July 2020. Past musculoskeletal history: The patient sustained a work injury in approximately 1989 while jumping on and off a dye. This led to a disc herniation at L5-S1 and the development of left sciatica. Hewas treated with L5- S1 discectomy in 1991. This provided good relief of left lumbar radicular symptoms for approximately 8-9 years. In 2001, the patient sustained a lifting injury while working for his current employer. He states that he was injured because no lift or pulleys were available to assist with the task. He developed lowback pain and left sciatica. The patient went on to discectomy, leading to good pain relief for a few years. He reports chronic, intermittent left medial buttock pain since 2003 or 2004. This has been kept under satisfactory control with the use of nightly doses of Percocet. Clinical materials reviewed: 1. Clinical office note of Chika Lazo APRN, 06/10/2020. The patient complained of low back and left knee pain. He had a history of chronic pain since the early and was status post L5-S1 disc surgery in 1991. The patient sustained a work injury in 2001 and went on to an additional surgery at the L5-S1 level. He had been able to manage his chronic pain with medications and activity modification. He presented after having sustained a work injury on 01/13/2020. He was injured in the process of repetitively rolling and pushing a 70 pound unit in forward flexed position. This led to increased backpain with radiation to the left buttock and left knee. He sought treatment with his primary care provider. Oral steroids were prescribed. They provided significant relief. The pain had worsened and left buttock pain had not resolved. He reported constant left knee pain and left buttock pain that was worst at rest. Additional symptoms included near giving out in the left lower extremity and numbness and tingling extending from the infrapatellar region to the anterior thigh. On examination, straight leg raising was positive bilaterally. The patient was unable to perform toewalking. Sensation was decreased in an L4 distribution. The patient's examination was felt to be suggestive of disc involvement. Lumbar MRI was planned. 2. Lumbar MRI, 07/15/2020. The study is reviewed. It demonstrates multilevel disc space narrowing, worst at L5-S1. There is multilevel bilateral lower lumbar facet arthropathy. A left lateral disc bulgeat L2-L3 contributes to severe intervertebral foraminal narrowing. There is a disc bulge at L3-L4 contributing to mild to moderate central stenosis and mild bilateral intervertebral foraminal narrowing. Degenerative endplate changes are seen at L4-L5. A broad-based disc bulge at that level contributesto moderate to severe central stenosis. There is a superimposed small central disc protrusion. No left-sided intervertebral foraminal narrowing is appreciated. At L5-S1, there is a broad-based disc bulge, but no significant central stenosis or left-sided intervertebral foraminal narrowing. There is bilateral subarticular recess stenosis at L3-L4, L4-L5 and L5-S1. Patient Active Problem List Diagnosis Code ??? Adjustment disorder with depressed mood F43.21 ??? Calculus of kidney N20.0 ??? Chronic pain disorder G89.4 ??? Eczema L30.9 ??? Essential hypertension I10 ??? Hyperlipidemia E78.5 ??? Low back pain radiating to left lower extremity M54.5, M79.605 ??? Opioid use F11.90 ??? Tobacco dependence syndrome F17.200 No past medical history on file. No past surgical history on file. Current Outpatient Medications on File Prior to Visit Medication Sig Dispense Refill ??? carvediloL (Coreg) 6.25 mg Tablet 1 tablet 2 times daily. ??? ibuprofen (Advil) 800 mg Tablet 1 tablet 3 times daily as needed. ??? valsartan (DIOVAN) 320 mg Tablet 1 tablet daily. ??? betamethasone dipropionate (DIPROLENE) 0.05 % Ointment as needed. ??? OXYcodone-acetaminophen (PERCOCET) 2.5-325 mg per tablet 1-2 Tablet(s), PO, Q4-6H,PRN No current facility-administered medications on file prior to visit. Allergies Allergen Reactions ??? Chlorthalidone Other reaction(s): PINON and syncope ??? Sertraline Other reaction(s): diarrhea ??? Lisinopril Other reaction(s): cough Review of Systems: As above. Objective: BP (!) 157/105 Pulse 72 Ht 175.3 cm (5' 9) Wt 95.3 kg (210 lb) BMI 31.01 kg/m?? The patient is an overweight male in no apparent distress. Alert and oriented x3. Affect is appropriate. Hawa's signs are absent. Gait and station: Gait is antalgic on the left. Base of support is widened. Foot clearance is satisfactory bilaterally. Patient is able to perform bilateral heel and toe walking. He on weights the leftlower extremity in standing. Neck is protracted. Left shoulder is elevated in standing. Lumbar motion: Lumbosacral excursion is limited to 2.5 cm on modified Tiffany's testing. Active flexion is limited to 45 degrees. Patient reports central mid lumbar and left knee pain at end range flexion and extension. Pelvic alignment/motion: Lumbar lordosis is decreased. Interval between ribs and pelvis is decreasedbilaterally. Pelvis is posteriorly rotated. Standing iliac crest palpation is level. There is bilateral tenderness with the assessment. Standing flexion test is positive on the left. Palpation: Tenderness is noted over left lateral inferior ribs, left quadratus lumborum and left sacroiliac joint. There is no focal tenderness to palpation about the left knee. LE flexibility: Tightness noted in bilateral hamstrings and left glutei. Pelvic/SI provocation: Patient reports central low lumbar pain to pelvic compression and focal left sacroiliac joint pain to pelvic shear. Radha is positive bilaterally for sacral pain. Motor: 5/5 for bilateral hip and knee flexors, knee extensors, ankle dorsiflexors and EHL. Sensation: Decreased to light touch in left anterior to medial thigh in an L3 distribution. Straight leg raising: Positive on the left for tingling in the left knee with ipsilateral testing from supine at 45 degrees. The patient reports left subpatellar pain with ipsilateral testing at 90 degrees from the seated position. Muscle stretch reflexes: 2+ for right quadriceps, 1+ left. Achilles tendon reflex is unobtainable bilaterally. Tone normal throughout the lower extremities. No ankle clonus. Assessment: Encounter Diagnoses Name Primary? Left lumbar radiculopathy ??? Lumbar spondylosis ??? Spinal stenosis of lumbar region, unspecified whether neurogenic claudication present ??? Sacroiliac dysfunction The patient is a 65-year-old male who reports a work-related lifting injury to the low back nearly 9months ago. He reports ongoing left lumbar radicular symptoms. History and examination are consistent with a left L3 radiculopathy. This correlates well with the lumbar MRI findings. It is likely that there are secondary contributors to the patient's pain, including facet arthropathy and sacroiliac mechanical dysfunction. The patient has a history of chronic left buttock pain and opiate dependence. He has a remote history of left lumbar radicular symptoms with several years of excellent pain relief, status post L5-S1 discectomy in 1989 and 2001. Despite the surgical history, he reports no previous left L3 radicular symptoms, nor was he experiencing any active radicular symptoms at the time of the reported work injury in December 2019. I believe, within a reasonable degree of medical certainty, that the patient's current symptoms, hisneed for treatment and the diagnoses noted above are causally related to the reported work injury of01/13/2020. I have explained my findings and impressions in detail with the patient. I recommend treatment with lumbar epidural steroid injection. A left L3-L4 transforaminal epidural steroid injection is proposed. The study was described in detail to the patient. He would like to proceed. Consideration will be given to modification of the current therapy program after the response to epidural steroid injection is known. Plan: 1. Lumbar epidural steroid injection. 2. Follow-up with me 3 weeks post-injection. 3. The patient will remain out of work. Work status will be reassessed at the post-injection visit. Total time spent on date of encounter = 91 minutes. The consultation request of Chika Lazo APRN is greatly appreciated. Nish Valencia MD, MS 10/08/2020 documented in this encounter Plan of Treatment Upcoming Encounters Date Type Specialty Care Team Description 10/11/2021 TH Visit (TeleHealth) Neurosurgery Lucian Cardoza MD [facility] NEUROSURGERY [place], [place] [address] (Wo rk) documented as of this encounter Visit Diagnoses Diagnosis Left lumbar radiculopathy Thoracic or lumbosacral neuritis or radi culitis, unspecified Lumbar spondylosis Lumbosacral spondylosis without myelopat hy Spinal stenosis of lumbar region, unspec ified whether neurogenic claudication present Sacroiliac dysfunction Disorders of sacrum documented in this encounter Care Teams Golf Club Repairer Relationship Specialty Start Date End Date Kalli Morgan APRN PCP - General Internal Medicine 01/22/[address] [place] [address] documented as of this encounter
--- OUTSIDE RECORDS SUMMARY | 2021-10-03 00:46 | XMS_ITS | Encounter Summary ---
:1955 Author Organization [facility] [address] Care Team Providers Name Role Phone Kalli Morgan ADRIEN Primary Care Provider Encounter Details Date Type Department Care Team Description 07/21/2021 External Results Neurodiagnostic at [facility] Kamaljit Yoon, [facility] [place] [address] [facility] [phone] NEUROLOGY DEPT. [place], [place] [address] Social History Tobacco Use Types Packs/Day Years Used Date Former Smoker Cigarettes Smokeless Tobacco: Never Used Sex Assigned at Date Recorded Not on file documented as of this encounter Plan of Treatment Upcoming Encounters Date Type Specialty Care Team Description 10/11/2021 TH Visit (TeleHealth) Neurosurgery Lucian Cardoza MD [facility] NEUROSURGERY [place], [place] [address] (Wo rk) documented as of this encounter Procedures Procedure Name Priority Date/Time Associated Diagnosis Comme nts EMG WITH F-WAVE Routine 07/21/2021 EMG WITH F-WAVE Routine 07/21/2021 documented in this encounter Results EMG WITH F-WAVE (07/21/2021) Narrative This result has an attachment that is no t available. Kamaljit Yoon MD NEUROLOGY ORDERABLES EMG WITH F-WAVE (07/21/2021) Kamaljit Yoon MD NEUROLOGY ORDERABLES documented in this encounter Visit Diagnoses Not on filedocumented in this encounter Care Teams Account Resolution Analyst Relationship Specialty Start Date End Date Kalli Morgan APRN PCP - General Internal Medicine 01/22/[address] [place] [address] documented as of this encounter
--- OUTSIDE RECORDS SUMMARY | 2021-10-03 00:46 | XMS_ITS | Encounter Summary ---
:1955 [address] [place] [address] Care Team Providers Name Role Phone Kalli Morgan APRN Primary Care Provider Reason for Visit Auth/Cert Specialty Diagnoses / Procedures Referred By Contact Refer red To Contact Diagnoses Lumbar radiculopathy, lumbar spondylosis, lumbar stenosis Procedures PRO INJ, FORAMEN, L/S, 1 LEVEL INJECTION, ANESTHETIC AGENT AND/OR STEROID, TRANSFORAMINAL EPIDURAL, LUMBAR OR SACRAL, SINGLE LEVEL (WRVU 1.9) Referral ID Status Reason Start Date Expiration Date Visits Requ ested Visits Authorized [id number] 1 1 Encounter Details Date Type Department Care Team Description 10/28/2020 Surgery Pain Management Ramakrishna Alvarez MD INJECTION, ANESTHETIC [facility] AGE NT AND/OR STEROID, [facility] TRANSFMILIMINVALENTÍN EPIDURAL, [place], [place] [address] LUMBAR OR SACRAL, SINGLE Drive LEVEL (WRVU 1.9) [place] [address] [phone] Social History Tobacco Use Types Packs/Day Years Used Date Former Smoker Cigarettes Smokeless Tobacco: Never Used Sex Assigned at Date Recorded Not on file documented as of this encounter Last Filed Vital Signs Vital Sign Reading Time Taken Comments Blood Pressure 157/103 10/28/2020 3:00 PM EDT Pulse 77 10/28/2020 2:21 PM EDT Temperature - - Respiratory Rate 18 10/28/2020 2:21 PM EDT Oxygen Saturation 97% 10/28/2020 3:00 PM EDT Inhaled Oxygen Concentration - - Weight 95.3 kg (210 lb) 10/28/2020 2:21 PM EDT Height 175.3 cm (5' 9) 10/28/2020 2:21 PM EDT Body Mass Index 31.01 10/28/2020 2:21 PM EDT documented in this encounter Discharge Instructions Discharge InstructionsAravind Whittington - 10/28/2020 3:02 PM EDT Pain Management Center Discharge Instructions: You were seen today by Surgeon(s): Nish Valencia MD Banuskevich, Andrew, PA The following was performed: Procedure(s) (LRB): INJECTION, ANESTHETIC AGENT AND/OR STEROID, TRANSFORAMINAL EPIDURAL, LUMBAR OR SACRAL, SINGLE LEVEL (WRVU 1.9) (Left) It is normal that the injection site will be sore for up to 48 hours. [x] You may also experience mild stiffness in the joint near the injection site. You may resume your normal activities: tomorrow. You may shower today. DO NOT tub bathe, use whirlpools, hot tubs or pool therapy for 2 days. Remove Band-Aid(s) later today/tomorrow. Do not drive until tomorrow. Use caution walking/climbing stairs as you may be unsteady on your feet. You may use your usual medications, including pain medications, as directed, unless otherwise instructed. You may use an ice pack as needed for the first 24 hours, on for 20 minutes then off for 20 minutes.Do not apply heat today. Attempt to empty your bladder 4-6 hours after your procedure. You received the following medications: Medications Given During Procedure Date/Time Order Dose Route Action 10/28/2020 1510 dexamethasone (PF) (Decadron) (10 mg/mL) injection 15 mg Epidural Given 10/28/2020 1510 iohexoL (Omnipaque) (240 mg/mL) injection solution 0.5 mL Epidural Given During regular business hours, please phone the Pain Management Center at with any questions or if the following or other troubling symptoms develop: 1) Prolonged dizziness or weakness (more than 1 day). 2) Localized swelling, redness or drainage at the injection site(s). 3) Temperature of 101 degrees that lasts for more than 4 hours. After 5 PM or on weekends, call and ask for Pain Clinic provider on-call. If you are unable to reach the Pain Management Center and have a complication, please call your Primary Care Provider or proceed to your local emergency department. Aravind Whittington Special instructions documented in this encounter Medications at Time of Discharge Medication Sig Dispensed Refills Start Date End Date carvediloL (Coreg) 6.25 mg Take by mouth. 0 08/10 Tablet ibuprofen (Advil) 800 mg 1 tablet 3 times 0 08/10 Tablet daily as needed. valsartan (DIOVAN) 320 mg Take 1 tablet by 0 08/18 Tablet mouth daily. betamethasone dipropionate as needed. 0 (DIPROLENE) 0.05 % Ointment OXYcodone-acetaminophen 1-2 Tablet(s), PO, 0 03/19 (PERCOCET) 2.5-325 mg per Q4-6H,PRN tablet carvediloL (Coreg) 6.25 mg 1 tablet 2 times 0 01/27/2021 Tablet daily. documented as of this encounter H&P Notes Nish Valencia MD - 10/27/2020 11:43 PM EDT Patient Name: Zach Morse Patient Age: 65 y.o. Birthdate: 1955 Admit date: (Not on file) Attending Physician: Nish Valencia MD, MS PRE-PROCEDURE HISTORY AND PHYSICAL Date of Visit: October 28, 2020 Chief Complaint: Left knee pain Left thigh numbness HPI: Zach Morse is a 65 y.o. male who presents today for lumbar epidural steroid injection. Please see my office note of 10/08/2020 for additional details. Interim history is obtained from the patient, and I have reviewed medical records located in the electronic medical record to fill in gaps in the patient's recollection of events, treatments and outcomes. LOCATION: Left knee. PAIN LEVEL AT REST 9/10 PAST MEDICAL HISTORY: No past medical history on file. PAST SURGICAL HISTORY: No past surgical history on file. ALLERGIES: Chlorthalidone, Sertraline, and Lisinopril MEDICATIONS: No current facility-administered medications on file prior to encounter. Current Outpatient Medications on File Prior to Encounter Medication Sig Dispense Refill ??? carvediloL (Coreg) 6.25 mg Tablet 1 tablet 2 times daily. ??? ibuprofen (Advil) 800 mg Tablet 1 tablet 3 times daily as needed. ??? valsartan (DIOVAN) 320 mg Tablet 1 tablet daily. ??? betamethasone dipropionate (DIPROLENE) 0.05 % Ointment as needed. ??? OXYcodone-acetaminophen (PERCOCET) 2.5-325 mg per tablet 1-2 Tablet(s), PO, Q4-6H,PRN FAMILY HISTORY: No family history on file. SOCIAL HISTORY: Social History Tobacco Use ??? Smoking status: Former Smoker Types: Cigarettes ??? Smokeless tobacco: Never Used Vaping Use ??? Vaping Use: Never used Substance Use Topics ??? Alcohol use: Not on file ??? Drug use: Not on file ROS: Denies fever, chills, shortness of breath, abdominal pain, bowel or bladder incontinence PHYSICAL EXAM: BP (!) 157/103 Pulse 77 Resp 18 Ht 175.3 cm (5' 9) Wt 95.3 kg (210 lb) SpO2 97% BMI 31.01 kg/m?? Physical Exam Constitutional: Appearance: Normal appearance. He is normal weight. Pulmonary: Effort: Pulmonary effort is normal. Skin: General: Skin is warm and dry. Neurological: Mental Status: He is alert. RADIOLOGIC DATA: Lumbar MRI, 07/15/2020. Multilevel disc space narrowing, worst at L5-S1. There is multilevel bilateral lower lumbar facet arthropathy. A left lateral disc bulge at L2-L3 contributes to severe intervertebral foraminal narrowing. There is a disc bulge at L3-L4 contributing to mild to moderate central stenosis and mild bilateral intervertebral foraminal narrowing. Degenerative endplate changes are seen at L4-L5. A broad-based disc bulge at that level contributes to moderate to severe central stenosis. There is a superimposed small central disc protrusion. No left-sided intervertebral foraminal narrowing is appreciated. At L5-S1, there is a broad-based disc bulge, but no significant central stenosis or left-sided intervertebral foraminal narrowing. There is bilateral subarticular recess stenosis at L3-L4, L4-L5 and L5-S1. ASSESSMENT: Lumbar radiculopathy, lumbar spondylosis, lumbar stenosis PLAN: Addressed all questions and concerns. Risks and benefits discussed with patient. No contraindications to the procedure at this time, will proceed with left L3- L4 TFESI. documented in this encounter Miscellaneous Notes Op Note - Nish Valencia MD - 10/28/2020 3:00 PM EDT Pain Management Operative Note Patient Name: Zach Morse : [id number] MR#: [id number] Case Date: 10/28/2020 Surgeon: Surgeon(s) and Role: * Nish Valencia MD, MS - Primary Present on Admission: ??? Radiculopathy of lumbar region ??? Lumbar spondylosis ??? Lumbar stenosis Postoperative diagnosis: Same LUMBAR TRANSFORAMINAL EPIDURAL STEROID INJECTION PROCEDURE NOTE Mr. Zach Morse has been referred to the Pain Management Center for a lumbar epidural steroid injection by Kalli Morgan, TOOL GRINDER [address] [place] [address]. The patient complains of left thigh pain and numbness.. Mr. Morse was greeted by the nurse who verified patient's name and . The patient was then taken to the fluoroscopy suite. Mr. Morse was interviewed and the medical record reviewed. There were no medical, pharmacologic, radiographic, or other structural contraindications to attempting fluoroscopically guided lumbar epidural steroid injection. Risks and potential side effects, as well as potential benefits of the procedurewere reviewed with Mr. Morse. His voiced concerns were addressed. After I was assured that informed consent was obtained, the patient consent form was signed. Standard time-out procedure was performed. Mr. Morse was placed in the prone position on the fluoroscopy table and automated blood pressure cuff and pulse oximeter applied. The skin entry point for entering/approaching the L3-L4 epidural space for the transforaminal epidural steroid injection was marked. Following thorough chlorhexidine prepara tion of the skin and draping and 1% lidocaine infiltration of the skin entry point and subcutaneous tissues, a 22 gauge spinal needle was placed and advanced under fluoroscopic guidance into the left L3-L4 intervertebral foramen. Needle tip placement and depth were aided and confirmed by fluoroscopy. There was no paresthesia or return of blood or CSF through the needle. 0.5 cc of Omnipaque 240 was injected (49.5 cc was wasted) with clear epidural spread confirmed with fluoroscopy. 15 mg of preservative-free Dexamethasone (10 mg/cc) was injected (5 mg was wasted) along with 2.5 cc of preservative-free normal saline. There was not any unusual discomfort expressed by Mr. Morse. (49.5 cc of Omnipaque and 5 mg of Dexamethasone were wasted) Mr. Morse's vital signs were stable throughout the procedure and were as recorded in nursing records. Follow up plans and appointments were discussed with Mr. Morse. The patient is set to follow up withme in 3 weeks. Post-procedure instructions were given as documented in nursing records and, having met discharge criteria, he was discharged from the Pain Management Center. Comments: If this procedure is successful in helping with pain and improving his function, it can becompleted a maximum of 3 times every 12 months. Nish Valencia MD, MS CC: Kalli Morgan, TOOL GRINDER [address] [place] [address] Procedure(s) (LRB): INJECTION, ANESTHETIC AGENT AND/OR STEROID, TRANSFORAMINAL EPIDURAL, LUMBAR OR SACRAL, SINGLE LEVEL (WRVU 1.9) (Left) documented in this encounter Plan of Treatment Upcoming Encounters Date Type Specialty Care Team Description 10/11/2021 TH Visit (TeleHealth) Neurosurgery Lucian Cardoza MD [facility] NEUROSURGERY [place], [place] [address] (Wo rk) Scheduled Orders Name Type Priority Associated Diagnoses Order S chedule INJ, ANES AGENT/STEROID, Procedures Routine Left lumbar One Time for 1 TRANSFORAMINAL EPI, radiculopath y Occurrences starting LUMBAR/SACRAL, SINGLE Lumbar spo ndylosis 10/28/2020 until LEVEL Spinal stenosis of 1 lumbar region, unspecified whether neurogenic claudication present documented as of this encounter Visit Diagnoses Diagnosis Left lumbar radiculopathy Thoracic or lumbosacral neuritis or radi culitis, unspecified Lumbar spondylosis Lumbosacral spondylosis without myelopat hy Spinal stenosis of lumbar region, unspec ified whether neurogenic claudication present Radiculopathy of lumbar region Thoracic or lumbosacral neuritis or radi culitis, unspecified Left lumbar radiculopathy Thoracic or lumbosacral neuritis or radi culitis, unspecified Lumbar spondylosis Lumbosacral spondylosis without myelopat hy Spinal stenosis of lumbar region, unspec ified whether neurogenic claudication present documented in this encounter Administered Medications Inactive Administered Medications - up to 3 most recent administrations Medication Order MAR Action Action Date Dose Rate Site dexamethasone (PF) (Decadron) (10 Given 10/28/2020 3:10 PM EDT 1 5 mg mg/mL) injection ONCE PRN, Starting on Jacquelnie 10/28/20 at 1500, Until Jacqueline 10/28/20 at 1718, Intra-Operative (Intra-Procedure), Routine iohexoL (Omnipaque) (240 mg/mL) injection Given 10/28/2020 3:10 PM EDT 0.5 mLs solution ONCE PRN, Starting on Jacqueline 10/28/20 at 1500, Until Jacqueline 10/28/20 at 1718, Intra-Operative (Intra-Procedure), Routine documented in this encounter Active and Recently Administered Medications Times are shown in EDT. PRN Medication Order 10/26/2020 10/27/2020 10/28/2020 dexamethasone (PF) (Decadron) (10 mg/mL) injection (CANCELED) 1510 (Given - Provider: Nish Vlaencia MD) ONCE PRN, Starting on Jacqueline 10/28/20 at 150 0, Until Jacqueline 10/28/20 at 1718, Intra- Operative (Intra-Procedure), Routine iohexoL (Omnipaque) (240 mg/mL) injection solution (CANCELED) 1510 (Given - Provider: Nish Valencia MD) ONCE PRN, Starting on Jacqueline 10/28/20 at 150 0, Until Jacqueline 10/28/20 at 1718, Intra- Operative (Intra-Procedure), Routine documented in this encounter Care Teams Daily Sales Audit Clerk Relationship Specialty Start Date End Date Kalli Morgan APRN PCP - General Internal Medicine 01/22/[address] [place] [address] documented as of this encounter
--- OUTSIDE RECORDS SUMMARY | 2021-10-03 00:46 | XMS_ITS | Encounter Summary ---
:1955 [place] [address] Care Team Providers Name Role Phone Eddie, Kalliwan Hicks APRN Primary Care Provider Reason for Visit Auth/Cert Specialty Diagnoses / Procedures Referred By Contact Refer red To Contact Diagnoses Lumbar radiculopathy, lumbar spondylosis, lumbar stenosis Procedures PRO INJ, FORAMEN, L/S, 1 LEVEL INJECTION, ANESTHETIC AGENT AND/OR STEROID, TRANSFORAMINAL EPIDURAL, LUMBAR OR SACRAL, SINGLE LEVEL (WRVU 1.9) Referral ID Status Reason Start Date Expiration Date Visits Requ ested Visits Authorized [id number] 1 1 Encounter Details Date Type Department Care Team Description 10/28/2020 Ancillary Procedure Pain Management Nish Alvarez MD Pain [place], [place] [address] [place] [address] [phone] Social History Tobacco Use Types Packs/Day Years Used Date Former Smoker Cigarettes Smokeless Tobacco: Never Used Sex Assigned at Date Recorded Not on file documented as of this encounter Plan of Treatment Upcoming Encounters Date Type Specialty Care Team Description 10/11/2021 TH Visit (TeleHealth) Neurosurgery Lucian Cardoza MD [facility] NEUROSURGERY [place], [place] [address] (Wo rk) documented as of this encounter Procedures Procedure Name Priority Date/Time Associated Diagnosis Comme nts FILM LIBRARY Routine 10/28/2020 3:59 PM Pain Results f or this STORAGE ONLY PAIN EDT procedure are in [facility]INIC [facility] the results section. documented in this encounter Results Film Library- Storage Only pain Clinic [facility] (10/28/2020 3:59 PM EDT) Specimen (Source) Anatomical Location Collection Method / Collectio n Time Received Time / Laterality Volume Narrative [facility] - 10/28/2020 3:59 PM EDT See PACS for result report. Nish Valencia MD IMG FILM LIBRARY ORDERABLES Performing Organization Address City/State/ZIP Code Phon e Number [place], [place] documented in this encounter Visit Diagnoses Diagnosis Pain Generalized pain documented in this encounter Care Teams Disk Sharpener Relationship Specialty Start Date End Date Kalli Morgan APRN PCP - General Internal Medicine 01/22/[address] [place] [address] documented as of this encounter
--- OUTSIDE RECORDS SUMMARY | 2021-10-03 00:46 | XMS_ITS | Encounter Summary ---
:1955 Author Organization [facility] [place] [address] Care Team Providers Name Role Phone Kalli Morgan APRN Primary Care Provider Encounter Details Date Type Department Care Team Description 03/30/2021 Orders Only Neurosurgery at [facility] King Cardoza MD [facility] [place] [address] NEUROSURGERY [phone] [place], [place] [address] (Wo rk) Social History Tobacco Use Types Packs/Day Years Used Date Former Smoker Cigarettes Smokeless Tobacco: Never Used Sex Assigned at Date Recorded Not on file documented as of this encounter Plan of Treatment Upcoming Encounters Date Type Specialty Care Team Description 10/11/2021 TH Visit (TeleHealth) Neurosurgery Lucian Cardoza MD [facility] [address] [place], [place] [address] (Wo rk) documented as of this encounter Visit Diagnoses Not on filedocumented in this encounter Care Teams Industrial Engineering Director Relationship Specialty Start Date End Date Kalli Morgan APRN PCP - General Internal Medicine 01/22/18 [address] [place] [address] documented as of this encounter
--- OUTSIDE RECORDS SUMMARY | 2021-10-03 00:46 | XMS_ITS | Encounter Summary ---
:1955 Author Organization [facility] [place] [address] Care Team Providers Name Role Phone Gillian Morganyce Kurt JURADO Primary Care Provider Encounter Details Date Type Department Care Team Description 09/02/2021 Telephone Neurosurgery at [facility] [place] [address] NEUROSURGERY [phone] [place], [place] [address] (Wo rk) Social History Tobacco [...] this encounter Miscellaneous Notes Telephone Encounter - Desiree Yates - 09/13/2021 8:02 AM EDT Spoke to pt. Has MRI scheduled on 10/03/21 at [facility]. Scheduled with [facility] on 10/11/21 for 1045 am call. Called adult protective caseworker Rula and salome to update pt has been scheduled for MRI No appt card needed. Closing encounter. Telephone Encounter - Elo Isbell - 09/02/2021 11:13 AM EDT Per [facility] OVN dated 08/02/2021 Patient needs f/u appointment(s): With [facility]A on/around after imaging After Imaging TOV, f/u L sided radiculopathy with L3-4 stenosis, MRI L-spine to be completed prior Fax rec'd from Rula Terrell, adult protective caseworker from [employer], advising MRI L-spine authorized & to inform once scheduled by calling [phone] or faxing [phone] (pt may want to get imaging completed at [facility] as that was where prior imaging was completed & authorized) Called pt's mobile # to update safety questions & obtain scheduling preferences but no answer/vmfull (no [place] forms on file) documented in this encounter Plan of Treatment Upcoming Encounters Date Type Specialty Care Team Description 10/11/2021 TH Visit (TeleHealth) Neurosurgery Lucian Cardoza MD [facility] NEUROSURGERY [place], [place] [address] (Wo rk) documented as of this encounter Visit Diagnoses Not on filedocumented in this encounter Care Teams Livestock Slaughterer Relationship Specialty Start Date End Date Kalli Morgan APRN PCP - General Internal Medicine 01/22/18 [address] [address] documented as of this encounter
--- OUTSIDE RECORDS SUMMARY | 2021-10-03 00:46 | XMS_ITS | Encounter Summary ---
:1955 Author Organization [facility] [place] [address] Care Team Providers Name Role Phone Kalli Morgan ADRIEN Primary Care Provider Reason for Visit Reason Onset Date Comments Other 07/28/2021 Encounter Details Date Type Department Care Team Description 07/28/2021 Telephone Neurology at [facility] Kamaljit Yoon MD [facility] [place] [address] NEUROLOGY DEPT. [phone] [place], [place] [address] (Wo rk) Social History Tobacco Use Types Packs/Day Years Used Date Former Smoker Cigarettes Smokeless Tobacco: Never Used Sex Assigned at Date Recorded Not on file documented as of this encounter Miscellaneous Notes Telephone Encounter - Desiree Johnson RN - 07/28/2021 4:03 PM EDT Called [employer] at [phone] and the call failed x2 (only phone number listed in scan doc from this company) Called [phone] and reached Pt's Photo Mask Cleaner, Rula Terrell. Confirmed Claim # [id number], DOI# 01/13/2020 and her F: [phone] Yoon's note and EMG report to Rula's attention Telephone Encounter - Dione Pike RN - 07/28/2021 3:53 PM EDT Copied from [facility] #[id number]. Topic: Specialty Dept CRMs - Test Results >> July 28, 2021 3:48 PM Raul Faith wrote: Test Results Request Specialist: Kamaljit Yoon MD Relationship (if other than patient-full name): Eugenie - [facility] Insurance Ordering Provider: King Cardoza MD Type of Test: EMG Date of Test: 07/21/21 Where Was This Test Performed: [facility] Mary Beth requested the report from this test to be sent over by fax to [phone]. Please contact Eugenie with any questions. documented in this encounter Plan of Treatment Upcoming Encounters Date Type Specialty Care Team Description 10/11/2021 TH Visit (TeleHealth) Neurosurgery Lucian Cardoza MD [facility] DR NEUROSURGERY [place], [place] [address] (Wo rk) documented as of this encounter Visit Diagnoses Not on filedocumented in this encounter Care Teams Contour Grinder Relationship Specialty Start Date End Date Kalli Morgan APRN PCP - General Internal Medicine 01/22/18 [address] [place] [address] documented as of this encounter
--- OUTSIDE RECORDS SUMMARY | 2021-10-03 00:46 | XMS_ITS | Encounter Summary ---
:1955 Author Organization [facility] [place] [address] Care Team Providers Name Role Phone Kalli Morgan APRN Primary Care Provider Encounter Details Date Type Department Care Team Description 10/19/2020 Telephone [facility] [place] [address] [place] [address] [phone] Social History Tobacco Use Types Packs/Day Years Used Date Former Smoker Cigarettes Smokeless Tobacco: Never Used Sex Assigned at Date Recorded Not on file documented as of this encounter Plan of Treatment Upcoming Encounters Date Type Specialty Care Team Description 10/11/2021 TH Visit (TeleHealth) Neurosurgery Lucian Cardoza MD [facility] NEUROSURGERY [place], [place] [address] (Wo rk) documented as of this encounter Visit Diagnoses Not on filedocumented in this encounter Care Teams Customer Manager Relationship Specialty Start Date End Date Kalli Morgan APRN PCP - General Internal Medicine 01/22/18 [address] [place] [address] documented as of this encounter
--- OUTSIDE RECORDS SUMMARY | 2021-10-03 00:46 | XMS_ITS | Encounter Summary ---
:1955 Author Organization [facility] [place] [address] Care Team Providers Name Role Phone Kalli Morgan APRN Primary Care Provider Encounter Details Date Type Department Care Team Description 12/13/2020 TH Visit Pain and Spine Nish Valencia, Left lumba r radiculopathy; (TeleHealth) Center at [facility] Lumbar spondylosis; [facility] st enosis of lumbar region, unspecified whether neurogenic claudication present [facility] [address] [place], [place], [place] [id number] [phone] Social History Tobacco Use Types Packs/Day Years Used Date Former Smoker Cigarettes Smokeless Tobacco: Never Used Sex Assigned at Date Recorded Not on file documented as of this encounter Progress Notes Nish Valencia MD - 12/13/2020 1:00 PM EDT Patient verbally consents to this telephone visit and understands that it will be billed, similar toa clinic office visit. I provided care to the patient today via telephone call. The total time associated with this visit was 20 minutes. Interim history: The patient returns for follow-up, status post left L3-L4 TFESI on 10/28/2020. He experienced relief of left knee pain for approximately 24 hours post-injection. The symptoms then rapidly returned to baseline. Over the last few weeks, he has developed nearly identical symptoms in the right knee. Left knee pain has been essentially constant, while right-sided symptoms are nocturnal. Pain is currently graded as 6-7/10. Pain is increased by stair climbing, operating a push mower and prolonged standing. The pain can be decreased slightly by hot baths. Sensory symptoms include numbness deep to the knees. He denies focal lower extremity weakness or bowel/bladder dysfunction. The patient's primary care provider, Kalli Morgan APRN, is now serving as his primary treating provider for the work injury. She started the patient on gabapentin 300 mg 2 p.o. twice daily. This has been ineffective. Objective: No formal physical examination was completed during today's telephone office visit. Speech is clear and topic appropriate. Assessment: Encounter Diagnoses Name Primary? Left lumbar radiculopathy ??? Lumbar spondylosis ??? Spinal stenosis of lumbar region, unspecified whether neurogenic claudication present The patient has experienced no relief of left anterior knee pain following the epidural steroid injection. He now reports nearly identical, though nocturnal, symptoms in the right knee. Given the lack of response to the epidural steroid injection, I cannot recommend a repeat. The etiology of the patient's sided symptoms is unclear. I encouraged the patient to speak with his primary care provider regarding possible orthopedic consultation for assessment of the knees. I recommend spine surgical consultation. The patient did not wish to proceed with this through our center. He prefers to be seen by King Cardoza MD, his previous operative surgeon. The patient will speak with his primary care provider to schedule neurosurgical consultation. Plan: 1. Patient to pursue neurosurgical patient through his primary care provider, as above. Nish Valencia MD, MS 12/13/2020 documented in this encounter Plan of Treatment Upcoming Encounters Date Type Specialty Care Team Description 10/11/2021 TH Visit (TeleHealth) Neurosurgery Lucian Cardoza MD [facility] [address] [place], [place] [address] (Wo rk) documented as of this encounter Visit Diagnoses Diagnosis Left lumbar radiculopathy Thoracic or lumbosacral neuritis or radi culitis, unspecified Lumbar spondylosis Lumbosacral spondylosis without myelopat hy Spinal stenosis of lumbar region, unspec ified whether neurogenic claudication present documented in this encounter Care Teams Lei Maker Relationship Specialty Start Date End Date Kalli Morgan APRN PCP - General Internal Medicine 01/22/[address] [place] [address] documented as of this encounter
--- OUTSIDE RECORDS SUMMARY | 2021-10-03 00:46 | XMS_ITS | Encounter Summary ---
:1955 Author Organization [facility] [place] [address] Care Team Providers Name Role Phone Kalli Morgan APRN Primary Care Provider Reason for Referral Diagnostic Test (Routine) - Closed Specialty Diagnoses / Procedures Referred By Contact Refer red To Contact Neurology Diagnoses Low back pain radiating to left lower extremity King Cardoza MD [facility] D [facility] [place] [address] [place] [address] Referral ID Status Reason Start Date Expiration Date Visits V isits Requested Authorized [id number] Closed Test Only 03/31/2021 03/31/2022 1 1 Encounter Details Date Type Department Care Team Description 03/31/2021 Orders Only Neurosurgery at [facility] King Cardoza, Low back pain [facility] MD radiating to left [facility] [place] [address] NEUROSURGERY [place], [place] [address] Social History Tobacco Use Types Packs/Day Years Used Date Former Smoker Cigarettes Smokeless Tobacco: Never Used Sex Assigned at Date Recorded Not on file documented as of this encounter Plan of Treatment Upcoming Encounters Date Type Specialty Care Team Description 10/11/2021 TH Visit (TeleHealth) Neurosurgery Lucian Cardoza MD [facility] NEUROSURGERY [place], [place] [address] (Wo rk) Scheduled Referrals Name Type Priority Associated Diagnoses Order S chedule Referral to Outpatient Referral Routine Low back pain Ordered : Neurology radiating to left 03/31/2021 lower extremity documented as of this encounter Visit Diagnoses Diagnosis Low back pain radiating to left lower ex tremity documented in this encounter Care Teams Post Tensioning Ironworker Relationship Specialty Start Date End Date Kalli Morgan APRN PCP - General Internal Medicine 01/22/[address] [place] [address] documented as of this encounter
--- OUTSIDE RECORDS SUMMARY | 2021-10-03 00:46 | XMS_ITS | Encounter Summary ---
:1955 [place] [address] Care Team Providers Name Role Phone Kalli [...] Expiration Date Visits Requ ested Visits Authorized [id number] 1 1 Encounter Details Date Type Department Care Team Description 10/28/2020 Hospital Encounter Pain Management Nish Valencia PCynthia t lumbar radiculopathy; Sona Allen MD Lumbar spondylosis; [facility] Spinal stenosis of lumbar re gion, unspecified whether neurogenic claudication present [facility] [address] [place], [place] [id number] [phone] Social History Tobacco Use Types Packs/Day Years [...] LOCATION: Left knee. PAIN LEVEL AT REST 11/26 PAST MEDICAL HISTORY: No past medical history [...] Operative Note Patient Name: Zach Morse : [id number] MR#: [id number] Case Date: 10/28/2020 Surgeon: Surgeon(s) and Role: * Nish Valencia MD, MS - Primary Present on Admission: ??? Radiculopathy of lumbar region ??? Lumbar spondylosis ??? Lumbar stenosis Postoperative diagnosis: Same LUMBAR TRANSFORAMINAL EPIDURAL STEROID INJECTION PROCEDURE NOTE Mr. Zach Morse has been referred to the [facility] for a lumbar epidural steroid injection by Kalli Morgan, OFFICE SERVICES ASSISTANT [address] [place] [address]. The patient complains of left thigh pain [...] Nish Valencia MD, MS CC: Kalli Morgan, OFFICE SERVICES ASSISTANT [address] [place] [address] Procedure(s) (LRB): INJECTION, ANESTHETIC AGENT AND/OR STEROID, TRANSFORAMINAL EPIDURAL, LUMBAR OR SACRAL, SINGLE LEVEL (WRVU 1.9) (Left) documented in this encounter Plan of Treatment Upcoming Encounters Date Type Specialty Care Team Description 10/11/2021 TH Visit (TeleHealth) Neurosurgery Lucian Cardoza MD [facility] NEUROSURGERY [place], [place] [address] (Wo rk) Scheduled Orders Name Type Priority Associated Diagnoses Order S chedule INJ, ANES AGENT/STEROID, Procedures Routine Left lumbar One Time for 1 TRANSFORAMINAL EPI, radiculopath y Occurrences starting LUMBAR/SACRAL, SINGLE Lumbar spo ndylosis 10/28/2020 until LEVEL Spinal stenosis of 08/12/202 1 lumbar region, unspecified whether neurogenic claudication present documented as of this encounter Visit Diagnoses Diagnosis Left lumbar radiculopathy Thoracic or lumbosacral neuritis or radi culitis, unspecified Lumbar spondylosis Lumbosacral spondylosis without myelopat hy Spinal stenosis of lumbar region, unspec ified whether neurogenic claudication present Radiculopathy of lumbar region Thoracic or lumbosacral neuritis or radi culitis, unspecified documented in this encounter Active and Recently Administered Medications Times are shown in EDT. PRN Medication Order 10/26/2020 10/27/2020 10/28/2020 dexamethasone (PF) (Decadron) (10 mg/mL) injection (CANCELED) 1510 (Given - Provider: Nish Valencia [...] Routine documented in this encounter Care Teams Roofing Technician Relationship Specialty Start Date End Date Kalli Morgan APRN PCP - General Internal Medicine 01/22/[address] [place] [address] documented as of this encounter
--- OUTSIDE RECORDS SUMMARY | 2021-10-03 00:46 | XMS_ITS | Clinical Summary ---
:1955 Author Organization [facility] [place] [address] Care Team Providers Name Role Phone Kalli Morgan APRN Primary Care Provider Allergies Active Allergy Reactions Severity Noted Date Comments Chlorthalidone High 08/25/2020 Other reactio n(s): PINON and syncope Lisinopril Low 08/25/2020 Other reaction( s): cough Sertraline High 08/25/2020 Other reaction( s): diarrhea Medications Medication Sig Dispensed Refills Start Date End Date Status OXYcodone-acetaminophen 1-2 Tablet(s), 0 04/03/2003 Active (PERCOCET) 2.5-325 mg PO, Q4-6H,PRN per tablet ibuprofen (Advil) 800 mg 1 tablet 3 times 0 08/11/19 21 Active Tablet daily as needed. valsartan (DIOVAN) 320 Take 1 tablet by 0 09/14/2020 Active mg Tablet mouth daily. betamethasone as needed. 0 07/12/2020 Acti ve dipropionate (DIPROLENE) 0.05 % Ointment carvediloL (Coreg) 6.25 Take by mouth. 0 08/10/2020 Active mg Tablet fluticasone propionate 2 sprays by Each 0 06/29/2021 Active (Flonase) 50 Nare route mcg/actuation [place], daily. Suspension Active Problems Patient Care Coordination Note Formatting of this note might be differe nt from the original. Workers' Comp: [facility] Deputy Juvenile Officer: Rula Terrell F: [phone] P: [phone] Claim # [id number] DOI# 01/13/2020 Problem Noted Date Radiculopathy of lumbar region 10/27/2020 Lumbar spondylosis 10/27/2020 Lumbar stenosis 10/27/2020 Eczema 10/13/2020 Low back pain radiating to left lower extremity 2020 Opioid use 10/13/2020 Hyperlipidemia 09/09/2014 Adjustment disorder with depressed mood 06/07/2012 Calculus of kidney 06/07/2012 Essential hypertension 06/07/2012 Chronic pain disorder 03/29/2011 Tobacco dependence syndrome 03/29/2011 Encounters Date Type Specialty Care Team Description 09/02/2021 Telephone Neurosurgery King Cardoza MD 08/02/2021 TH Visit (TeleHealth) Neurosurgery King Cardoza Low back pain radiating MD Steve to left lower e xtremity 07/28/2021 Telephone Neurology Kamaljit Yoon MD 07/21/2021 Procedure visit Neurology Kamaljit Yoon Left leg paresthesias MD Sisi 07/21/2021 Hospital Encounter Radiology King Cardoza ba ck pain radiating MD Steve to left lower e xtremity 07/21/2021 External Results Neurology Kamaljit Yoon MD from Last 3 Months Social History Tobacco Use Types Packs/Day Years [...] Assigned at Date Recorded Not on file Last Filed Vital Signs Vital Sign Reading [...] Mass Index 31.01 10/28/2020 2:21 PM EDT Plan of Treatment Upcoming Encounters Date Type Specialty Care Team Description 10/11/2021 TH Visit (TeleHealth) Neurosurgery Lucian Cardoza MD [facility] ER [address] NEUROSURGERY [place], [place] [address] (Wo rk) Health Maintenance Due Date Last Done Comments Covid-19 Vaccine (#1) 1960 Hepatitis C Screening 1973 Lipid Screening 1973 Tdap adult 1974 Tetanus vaccine 1974 Diabetes Screening (HgbA1C or Glucose) 1995 Colonoscopy 2000 Zoster vaccine (1 of 2) 2005 Advance Directive 2010 AAA Screen 2020 Pneumoccocal Vaccine: 65+ (1 - PCV) 2020 Influenza (Flu) vaccine (1 of 1 - Influenza standard 11/17/2021 series) Procedures Procedure Name Priority Date/Time Associated Diagnosis Comme nts XR LUMBAR SPINE Routine 07/21/2021 8:09 AM Low back pain Resul ts for this FLEXION EXTENSION EDT radiating to left proce dure are in ONLY lower extremity the results section. EMG WITH F-WAVE Routine 07/21/2021 EMG WITH F-WAVE Routine 07/21/2021 from Last 3 Months Results XR Lumbar Spine Flexion Extension Only [...] who have questions please contact the health patient care technician instructor that requested your imaging first. ? Narrative [...] ho have questions please contact the health patient care technician instructor that requested your imaging first. King Cardoza MD IMG DX ORDERABLES EMG WITH F-WAVE (07/21/2021) Narrative This result has an attachment that is no t available. Kamaljit Yoon MD NEUROLOGY ORDERABLES EMG WITH F-WAVE (07/21/2021) Kamaljit Yoon MD NEUROLOGY ORDERABLES from Last 3 Months Insurance Payer Benefit Plan / Subscriber ID Effective Dates Phone Addre ss Type Group [facility] [id number] 2019-Pres [phone] [address] [address] [facility] ent [address] [place] [id number] [facility] [id number] 2020-Presen [address] [facility] [place] [address] MEDICARE MEDICARE PART [id number] 2020-Presen [address] [place]DE[place] [phone] [id number] Workers Comp Employer 1955 [id number] [employer] (Home) [place] [address] Care Teams Carbon Sequestration Plant Operator Relationship Specialty Start Date End Date Kalli Morgan APRN PCP - General Internal Medicine 01/22/[address] [place] [address]
--- OUTSIDE RECORDS SUMMARY | 2021-10-03 00:46 | XMS_ITS | Encounter Summary ---
:1955 Author Organization [facility] [place] [address] Care Team Providers Name Role Phone Gillian Morganyce Kurt JURADO Primary Care Provider Encounter Details Date Type Department Care Team Description 07/21/2021 Hospital Encounter XRay at [facility] King Cardoza Low back pain [address] [facility] [address] Steve MD radiating to left [place], [place] [facility] lower extremity [id number] [place] [phone] [place] [address] Social History Tobacco Use Types Packs/Day Years Used Date Former Smoker Cigarettes Smokeless Tobacco: Never Used Sex Assigned at Date Recorded Not on file documented as of this encounter Medications at Time of Discharge Medication Sig Dispensed Refills Start Date End Date carvediloL (Coreg) 6.25 mg Take by mouth. 0 08/10 Tablet fluticasone propionate 2 sprays by Each 0 022 (Flonase) 50 mcg/actuation Nare route daily. [place], Suspension ibuprofen (Advil) 800 mg 1 tablet 3 times 0 08/10 Tablet daily as needed. valsartan (DIOVAN) 320 mg Take 1 tablet by 0 08/18 Tablet mouth daily. betamethasone dipropionate as needed. 0 (DIPROLENE) 0.05 % Ointment OXYcodone-acetaminophen 1-2 Tablet(s), PO, 0 03/19 (PERCOCET) 2.5-325 mg per Q4-6H,PRN tablet documented as of this encounter Plan of Treatment Upcoming Encounters Date Type Specialty Care Team Description 10/11/2021 TH Visit (TeleHealth) Neurosurgery Lucian Cardoza MD [facility] ER DR NEUROSURGERY [place], [place] [address] (Wo rk) documented as of this encounter Procedures Procedure Name Priority Date/Time Associated Diagnosis Comme nts XR LUMBAR SPINE Routine 07/21/2021 8:09 AM Low back pain Resul ts for this FLEXION EXTENSION EDT radiating to left proce dure are in ONLY lower extremity the results section. documented in this encounter Results XR Lumbar Spine Flexion [...] who have questions please contact the health nurse behavioral health care that requested your imaging first. ? Narrative [...] ho have questions please contact the health nurse behavioral health care that requested your imaging first. Electronically signed by: Marv Rodríguez MD , [facility] ([phone]), at 07/21/2021 8:53 AM King Cardoza MD IMG DX ORDERABLES documented in this encounter Visit Diagnoses Diagnosis Low back pain radiating to left lower ex tremity documented in this encounter Care Teams Application Support Analyst Relationship Specialty Start Date End Date Kalli Morgan APRN PCP - General Internal Medicine 01/22/[address] [place] [address] documented as of this encounter
--- OUTSIDE RECORDS SUMMARY | 2021-10-03 00:46 | XMS_ITS | Encounter Summary ---
:1955 Author Organization [facility] [place] [address] Care Team Providers Name Role Phone Kalli Morgan ADRIEN Primary Care Provider Encounter Details Date Type Department Care Team Description 10/19/2020 Telephone Pain and Spine Kandi bonilla at [facility] [place] [address] Social History Tobacco Use Types Packs/Day Years Used Date Former Smoker Cigarettes Smokeless Tobacco: Never Used Sex Assigned at Date Recorded Not on file documented as of this encounter Miscellaneous Notes Telephone Encounter - Jany Ortiz RN - 10/19/2020 1:56 PM EDT Incoming call received from pt on delinquent tax collector assistant line. Pt has an injection scheduled with Dr. Valencia on 10/21/20. He reports coughing, sneezing and runny nose since Sunday. Denies fevers. Pt reports he normally has allergies but thinks this is a head cold. Pt instructed to call the delinquent tax collector assistant line tomorrow 10/20 to update us on how he is feeling and possibly reschedule procedure. Pt verbalized understanding, denies other questions/concerns at this time. documented in this encounter Plan of Treatment Upcoming Encounters Date Type Specialty Care Team Description 10/11/2021 TH Visit (TeleHealth) Neurosurgery Lucian Cardoza MD [facility] [address] [place], [place] [address] (Wo rk) documented as of this encounter Visit Diagnoses Not on filedocumented in this encounter Care Teams Assistant Sales Center Manager Relationship Specialty Start Date End Date Kalli Morgan APRN PCP - General Internal Medicine 01/22/[address] [place] [address] documented as of this encounter
--- OUTSIDE RECORDS SUMMARY | 2021-10-03 00:47 | XMS_ITS | Encounter Summary ---
:1955 Author Organization [facility] Address [address] [place] [address] Care Team Providers Name Role Phone Unknown, Provider Primary Care Provider Encounter Details Date Type Department Care Team Description 02/23/2009 Orders Only [facility] Bubba Guerra MD Laboratory Services - [address] [address] [address] [facility] [place] [address] [phone] Social History Tobacco Use Types Packs/Day Years Used Date Never Assessed Sex Assigned at Date Recorded Not on file documented as of this encounter Plan of Treatment Not on filedocumented as of this encounter Procedures Procedure Name Priority Date/Time Associated Diagnosis Comme nts CYTOPATHOLOGY Routine 02/23/2009 0:00 EST Results for this procedure are i n the results section . documented in this encounter Results CYTOPATHOLOGY (02/23/2009 0:00 EST) Pathology Report: CYTOPATHOLOGY REPORT ? [facility] ? LAB Reports generated via electr onic interface contain original data; ? however they are lacking the format of the original report. ? Caution should be taken when reading/interpreting unformatted reports. ? Name: ? MIKE MORSE ? Accession #: ? [id number] ? : ? 1955 (Age: 53) ??M ?Collect Date: ? 02/23/2009 ? Location: ? [facility] ? Receive Date: ? 02/24/2009 ? Provider: ? AGGIE SARV ER MD ? Copy to: ?MACY ERICK DIERCKS MD ? CYTOLOGIC DIAGNOSIS: ? Urine, washing, cytol ogic evaluation: ? - Negative for malignant rodrigo ls. ? Document reviewed and electr onically signed by: ? Washington Sanchez MD ? Report Date: ??02/24/2009 17 :22 ? By the signature above, the attending physician certifies that he/she has ? personally conducted a gross and/or microscopic examination of the described ? specimens and rendered or co nfirmed the above diagnosis. ? Specimen Type: ? Urine, Bladder Washing ? Clinical History: ? Intermittent gross he maturia ? Gross Description: ? One vial of Cytolyt w as received and processed by selective cellular ? enhancement technique. ? End of Report ? Specimen Performing Organization Address City/State/ZIP Code Phon e Number [facility] [address] [place] [address] SERVICES [facility] [address] [place] [address] documented in this encounter Visit Diagnoses Not on filedocumented in this encounter Care Teams Metal Hanging Supervisor Relationship Specialty Start Date End Date Unknown, Provider, PCP - General 01/06/09 documented as of this encounter
--- OUTSIDE RECORDS SUMMARY | 2021-10-03 00:47 | XMS_ITS | Encounter Summary ---
:1955 Author Organization [facility] Address [address] [place] [address] Care Team Providers Name Role Phone Unknown, Provider Primary Care Provider Encounter Details Date Type Department Care Team Description 01/05/2009 Orders Only [facility] Bubba Guerra MD Laboratory Services - [address] [address] 0 [facility] [place] [address] [phone] Social History Tobacco Use Types Packs/Day Years Used Date Never Assessed Sex Assigned at Date Recorded Not on file documented as of this encounter Plan of Treatment Not on filedocumented as of this encounter Procedures Procedure Name Priority Date/Time Associated Diagnosis Comme nts CYTOPATHOLOGY Routine 01/05/2009 0:00 EDT Results for this procedure are i n the results section . documented in this encounter Results CYTOPATHOLOGY (01/05/2009 0:00 EDT) Pathology Report: CYTOPATHOLOGY REPORT ? [facility] ? LAB Reports generated via electr onic interface contain original data; ? however they are lacking the format of the original report. ? Caution should be taken when reading/interpreting unformatted reports. ? Name: ? MIKE MORSE ? Accession #: ? [id number] ? : ? 1955 (Age: 53) ??M ?Collect Date: ? 01/05/2009 ? Location: ? [facility] ? Receive Date: ? 01/06/2009 ? Provider: ? AGGIE SARV ER MD ? Copy to: ?MACY ERICK DIERCKS MD ? CYTOLOGIC DIAGNOSIS: ? Urine, voided, cytolo gic evaluation: ? - Negative malignant cells i dentified. ? - Urothelial cells present. ? - Red blood cells noted. ? Document reviewed and electr onically signed by: ? KAY GALVIN MD [facility] ? Report Date: ??01/07/2009 11 :40 ? By the signature above, the attending physician certifies that he/she has ? personally conducted a gross and/or microscopic examination of the described ? specimens and rendered or co nfirmed the above diagnosis. ? Specimen Type: ? Urine, Voided ? Clinical History: ? Gross hematuria. ? Gross Description: ? One vial of Cytolyt w as received and processed by selective cellular ? enhancement technique. ? End of Report ? Specimen Performing Organization Address City/State/[facility] Phon e Number [facility] [address] [place] [address] SERVICES [facility] [address] [place] [address] documented in this encounter Visit Diagnoses Not on filedocumented in this encounter Care Teams Exterior Work Helper Relationship Specialty Start Date End Date Unknown, Provider, PCP - General 01/06/09 documented as of this encounter
--- OUTSIDE RECORDS SUMMARY | 2021-10-03 00:47 | XMS_ITS | Encounter Summary ---
:[address] [facility] Address [address] [place] [address] Care Team Providers Name Role Phone Unknown, Provider Primary Care Provider Encounter Details Date Type Department Care Team Description 06/24/2020 Lab Requisition [facility] Outr Resulting Lab, Pathology & Laboratory Provider [facility] [address] [place] [address] Social History Tobacco Use Types Packs/Day Years Used Date Never Assessed Sex Assigned at Date Recorded Not on file documented as of this encounter Plan of Treatment Not on filedocumented as of this encounter Procedures Procedure Name Priority Date/Time Associated Diagnosis Comme nts COVID-19 TEST [facility]C Today 06/24/2020 9:15 EDT LAB PCR COVID-19 TESTING Routine 06/24/2020 9:15 EDT Resu lts for this procedure are i n the results section. documented in this encounter Results COVID-19 TEST [facility] PCR (06/24/2020 9:15 EDT) Specimen Swab - Entire nasopharynx (body structur e) Performing Organization Address City/State/ZIP Code Phon e Number [facility] [address] [place] [address] SERVICES COVID-19 TESTING (06/24/2020 9:15 EDT) COVID-19 rt-PCR Negative Negative [facility] Result Comment: [facility] This test has not been FDA c leared or approved. This test has been authorized by FDA under an EUA for use by authorized laboratories. This test has been authorized only for detection of nucleic acid fro SERVICES m 2019-nCoV, not for any oth er viruses or pathogens. This test is only authorized for the duration of the declaration that circumstances exist justifying the authorization of emergency use of in vitro d iagnostic tests for detectio n and/or diagnosis of 2019-nCoV under section 564(b)(1) of Act, 21 U.S.C ?? 360bbb-3(b) (1), unless the authorization is terminated or revoked sooner. Negative results do not prec lude 2019-nCoV infection and should not be used as the sole basis for treatment or other patient management decisions. Negative results must be combined with clinical observa tions, patient history, and epidemiological informatio n. 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
--- OUTSIDE RECORDS SUMMARY | 2021-10-03 00:47 | XMS_ITS | Encounter Summary ---
:1955 Author Organization [facility] Address [address] [place] [address] Care Team Providers Name Role Phone Unknown, Provider Primary Care Provider Encounter Details Date Type Department Care Team Description 02/20/2020 Lab Requisition [facility] Outr Resulting Lab, Pathology & Laboratory Provider [facility] [address] [place] [address] Social History Tobacco Use Types Packs/Day Years Used Date Never Assessed Sex Assigned at Date Recorded Not on file documented as of this encounter Plan of Treatment Not on filedocumented as of this encounter Procedures Procedure Name Priority Date/Time Associated Comments Diagnosis DO NOT ORDER Today 02/20/2020 11:19 Results for this STANDALONE - BROAD EST procedure are in COVID TEST the results section. COVID-19 TESTING Routine 02/20/2020 11:19 Results for this EST procedure are i n the results section. documented in this encounter Results DO NOT ORDER STANDALONE - BROAD COVID TEST (02/20/2020 11:19 EST) COVID-19 rt-PCR NEGATIVE Negative [facility] Result Comment: LABORATORY 2019-novel Coronavirus (2019 -nCoV) not detected by the qRT-PCR assay. Consider testing for other respiratory viruses or re-collecting for 2019-nCoV testing. Note: Optimum timing for peak viral levels du ring infections caused by 20 -nCoV have not been determined. Collection of multiple specimens from the same patient may be necessary to detect the virus. Limitations Positive results are indicat musa of active infection with SARS-CoV-2 but do not rule out bacterial infection or co-infection with other viruses. The agent detected may not be the definite cause of diseas e. In addition, detection of viral RNA may not indicate the presence of infectious virus or that SARS-CoV-2 is the causative agent for clinical symptoms. Negative results do not prec lude SARS-CoV-2 infection and should not be used as the sole basis for patient management decisions. Negative results must be combined with clinical observations, patient his tory, and epidemiological in formation. False negative results may also occur if amplification inhibitors are present in the specimen or if inadequate numbers of organisms are present in the specimen. Op timum specimen types and izzy ing for peak viral levels during infections caused by SARS-CoV-2 have not been fully determined. Collection of multiple specimens (types and time points) from the same patient may be necessary to detect the virus. The test was validated for u se with upper respiratory specimens obtained via nasopharyngeal or oropharyngeal swabs in VTM, UTM, M4, M5, M6, saline, and MTM media. The performance of this test has not be en established for other spe cimens. Specimens collected using other FDA recommended Specimen Collection Materials listed in the FDA COVID-19 [employer] communication (June 12, 2019) are pr ocessed with the caveat that they were not all validated for use with this test and the result must be interpreted in this context. Furthermore, a false negative results may occur if a specimen is improperly collected, transported or handled. If the virus mutates in the RT-PCR target region, SARS-CoV-2 may not be detected or may be detected less predictably. Inhibitors or other types of interference may produce a false negative result. An interference study evaluating the effect of common cold medications was not performed. This test is not FDA-cleared but its performance characteristics were established by our CLIA-certified, CAP-accredited, high complexity laboratory in accordance with CLIA regulations, [employer] (CAP) guidel timbo (Jun 05, 2019), and FDA guidance (May 17, 2019). This test is only for use un josé the Food and Drug Administration's Emergency Use Authorization. Specimen Swab - Entire nasopharynx (body structur e) Performing Organization Address City/State/ZIP Code Phon e Number [facility] [place] [place] COVID-19 TESTING (02/20/2020 11:19 EST) COVID-19 rt-PCR NEGATIVE Negative [facility] Result Comment: LABORATORY 2019-novel Coronavirus (2019 -nCoV) not detected by the qRT-PCR assay. Consider testing for other respiratory viruses or re-collecting for 2019-nCoV testing. Note: Optimum timing for peak viral levels du ring infections caused by 20 -nCoV have not been determined. Collection of multiple specimens from the same patient may be necessary to detect the virus. Limitations Positive results are indicat musa of active infection with SARS-CoV-2 but do not rule out bacterial infection or co-infection with other viruses. The agent detected may not be the definite cause of diseas e. In addition, detection of viral RNA may not indicate the presence of infectious virus or that SARS-CoV-2 is the causative agent for clinical symptoms. Negative results do not prec lude SARS-CoV-2 infection and should not be used as the sole basis for patient management decisions. Negative results must be combined with clinical observations, patient his tory, and epidemiological in formation. False negative results may also occur if amplification inhibitors are present in the specimen or if inadequate numbers of organisms are present in the specimen. Op timum specimen types and izzy ing for peak viral levels during infections caused by SARS-CoV-2 have not been fully determined. Collection of multiple specimens (types and time points) from the same patient may be necessary to detect the virus. The test was validated for u with upper respiratory specimens obtained via nasopharyngeal or oropharyngeal swabs in VTM, UTM, M4, M5, M6, saline, and MTM media. The performance of this test has not be en established for other spe cimens. Specimens collected using other FDA recommended Specimen Collection Materials listed in the FDA COVID-19 [employer] communication (June 12, 2019) are pr ocessed with the caveat that they were not all validated for use with this test and the result must be interpreted in this context. Furthermore, a false negative results may occur if a specimen is improperly collected, transported or handled. If the virus mutates in the RT-PCR target region, SARS-CoV-2 may not be detected or may be detected less predictably. Inhibitors or other types of interference may produce a false negative result. An interference study evaluating the effect of common cold medications was not performed. This test is not FDA-cleared but its performance characteristics were established by our CLIA-certified, CAP-accredited, high complexity laboratory in accordance with CLIA regulations, [employer] (CAP) guidel timbo (Jun 05, 2019), and FDA guidance (May 17, 2019). This test is only for use un josé the Food and Drug Administration's Emergency Use Authorization. 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
--- NOTE | 2021-10-03 10:45 | DI.MRI_ITS ---
Exam(s) MR LUMBAR SPINE WO EXAM: MR LUMBAR SPINE WO CLINICAL HISTORY: LBP RADIATING TO LLE, M54.50, M79.605, LUMBAR RADICULOPATHY. TECHNIQUE: Multiplanar multisequence MRI of the Lumbar spine was performed. COMPARISON: CR LUMBAR SPINE COMPLETE from 05/23/2012 MR MR LUMBAR SPINE WO from 07/15/2020 FINDINGS: There is mild anterior wedging of the L2 vertebral body and a Schmorl's node. Findings are new when compared with the prior exam. Schmorl's nodes are also seen at the L4-5 level. T11-12 and T12-L1 levels are unremarkable. The conus medullaris appears normal. L1-2: Broad-based disc osteophytes, eccentric toward the left causing bilateral neural foraminal narr owing, left greater than right. Mild central canal stenosis. Findings have progressed when compared with prior. L2-3: Mild disc osteophytes. Facet degenerative changes and ligamentous hypertrophy. Slight central canal stenosis. Mild bilateral neural foraminal narrowing. L3-4: Mild loss of disc height. Broad-based disc osteophytes. Facet degenerative changes and ligame ntous hypertrophy combine to produce moderate central canal stenosis and moderate bilateral neural fo raminal narrowing. L4-5: Broad-based disc osteophytes. Facet degenerative changes and ligamentous hypertrophy combining to produce moderate central canal stenosis. There is right neural foraminal encroachment by combina tion of disc osteophytes and facet osteophytes. Stable from prior. L5-S1: Left-sided at laminectomy defect. Loss of disc height and broad-based disc osteophytes. Mode rate right neural foraminal encroachment. No significant left neural foraminal encroachment. No fred tral canal stenosis. Bilateral parapelvic cysts. Aorta normal in diameter. IMPRESSION: New mild compression of the L2 superior endplate. Interval worsening of degenerative disc changes at this level. Degenerative disc changes and facet degenerative changes are noted throughout, causing central canal stenosis which is greatest at L4-5. Multilevel neural foraminal narrowing. Postsurgic al changes at L5-S1. DATA REPOSITORY:
== END ==
PROVIDERS: PCP Nurse Practitioner; Visit Provider Neurological Surgery
DX: M48.061 Spinal stenosis, lumbar region without neurogenic claudication (principal); M47.26 Other spondylosis with radiculopathy, lumbar region
CPT/HCPCS: 72148

== ENCOUNTER 2021-11-29 03:47 | Outpatient (CLI) | payer BC, SELFPAY ==
[2021-11-29 07:20] LABS: HCT 42.3 % (40.0-50.0); HGB 14.4 g/dL (13.5-17.5); MCH 31.5 pg (27.0-33.0); MCV 93 fL (80-95); MPV 10.8 fL (8.0-11.0); Platelet Count 236 10^3/uL (130-400); RBC 4.57 10^6/uL (4.36-5.78); RDW-SD 40.9 fL; WBC 6.32 10^3/uL (4.4-10.8)
[2021-11-29 07:30] LABS: Hemoglobin A1C 5.6 % (<5.7)
[2021-11-29 07:41] LABS: ALT 53 U/L (16-63); AST 24 U/L (15-37); Albumin 3.8 g/dL (3.4-5.0); Alkaline Phosphatase 105 U/L (46-116); BUN 21 mg/dL (7-18); Bilirubin, Total 0.9 mg/dL (0.2-1.0); CREATININE 1.1 mg/dL (0.70-1.30); Calcium 9.3 mg/dL (8.5-10.1); Calculated LDL 152 mg/dL (<100); Chloride 101 mmol/L (98-107); Cholesterol 239 mg/dL (<200); Estimated GFR 74.04 (mL/min/1.73m2); Glucose 125 mg/dL (74-106); HDL Cholesterol 67 mg/dL (40-60); Potassium 4.2 mmol/L (3.5-5.1); Sodium 136 mmol/L (136-145); Total Protein 7.8 g/dL (6.4-8.2); Triglyceride 104 mg/dL (<150)
== END 2021-11-29 03:48 | disposition home or self-care (01) ==
LOC: LBO 03:47
PROVIDERS: PCP Nurse Practitioner; Visit Provider Nurse Practitioner
DX: E78.5 Hyperlipidemia, unspecified (principal); I10 Essential (primary) hypertension; R73.01 Impaired fasting glucose
CPT/HCPCS: 36415; 80053; 80061; 85027; 83036

== ENCOUNTER 2023-02-15 11:23 | Outpatient (CLI) | payer OTHER, SELFPAY ==
--- NOTE | 2023-02-15 08:30 | DI.RAD_ITS ---
Exam(s) XR KNEE LT 1V XR STANDING ALIGNMENT EXAM: XR STANDING ALIGNMENT and XR knee LT 1 V CLINICAL HISTORY: LEFT KNEE PAIN. TECHNIQUE: 2D digital imaging was performed. Five images were obtained. COMPARISON: No priors for comparison. FINDINGS: BONES: The hips are well maintained. In the right knee, there is moderate narrowing of the medial fe moral tibial joint. Osteophytes are seen both medially and laterally. In the left knee, there is ma rked narrowing of the medial femoral tibial joint. Osteophytes are seen in all 3 joint compartments. No joint effusion is seen. The ankles are well maintained.There is no significant leg length discr epancy. SOFT TISSUE: Atherosclerosis is present. IMPRESSION: Bilateral arthrosis of the knees, left greater than right. DATA REPOSITORY: RADIATION DOSE DELIVERED:
== END 2023-02-15 11:24 | disposition home or self-care (01) ==
LOC: DIORS 13:50
PROVIDERS: PCP Nurse Practitioner; Visit Provider Student in an Organized Health Care Education/Training Program
DX: M17.0 Bilateral primary osteoarthritis of knee (principal)
CPT/HCPCS: 73560; 77073

== ENCOUNTER 2023-02-21 02:43 | Outpatient (CLI) | payer OTHER, SELFPAY ==
[2023-02-21 08:50] LABS: HCT 39.7 % (40.0-50.0); HGB 13.7 g/dL (13.5-17.5); MCH 31.5 pg (27.0-33.0); MCHC 34.5 % (32.0-36.0); MCV 91 fL (80-95); MPV 11.7 fL (8.0-11.0); Platelet Count 244 10^3/uL (130-400); RBC 4.35 10^6/uL (4.36-5.78); RDW 11.9 % (11.8-14.1); RDW-SD 39.8 fL; WBC 7.06 10^3/uL (4.4-10.8)
[2023-02-21 09:31] LABS: BUN 22 mg/dL (7-18); CREATININE 1.2 mg/dL (0.70-1.30); Calcium 9.7 mg/dL (8.5-10.1); Chloride 106 mmol/L (98-107); Estimated GFR 66.28 (mL/min/1.73m2); Glucose 137 mg/dL (74-106); Potassium 4.7 mmol/L (3.5-5.1); Sodium 141 mmol/L (136-145)
== END 2023-02-21 02:44 | disposition home or self-care (01) ==
LOC: LBO 02:44
PROVIDERS: PCP Nurse Practitioner; Visit Provider Student in an Organized Health Care Education/Training Program
DX: M17.12 Unilateral primary osteoarthritis, left knee (principal); Z01.818 Encounter for other preprocedural examination
CPT/HCPCS: 36415; 80048; 85027

== ENCOUNTER 2023-03-06 07:06 | Day surgery (SDC) | payer OTHER, SELFPAY ==
[2023-03-06] VITALS (16 sets, daily range): BP systolic 105–146; BP diastolic 63–88; PULSE 54–65; RESP 10–20; TEMP 36.1–36.4; O2SAT 95–98; BMI 38.7
--- NOTE | 2023-03-06 07:27 | DSE_ITS ---
Date of service: 03/06/23 Time of Service: 07:31 DS: Diagnosis Discharge Diagnosis (1) Degenerative arthritis of left knee: Status: Resolved Discharge Plan Disposition Patient Disposition: Home Condition: Good Discharge Details Reason For Visit: Left knee DJD Attending Provider: Gustavo Michaud Primary Care Provider: Kalli Morgan Home Meds and New Rx's Prescriptions: New celecoxib [Celebrex] 200 mg capsule 200 mg PO BID PRNQty: 60 0RF Rx Instructions: Take one tablet twice daily for pain and inflammation aspirin 81 mg tablet,delayed release (DR/EC) 81 mg PO BID 30 Days Qty: 60 0RF acetaminophen 500 mg tablet 1,000 mg PO Q8H PRN Qty: 90 0RF Rx Instructions: Take two tablets up to every 8 hours as needed for pain pantoprazole 40 mg tablet,delayed release (DR/EC) 40 mg PO DAILY Qty: 14 0RF dexamethasone 4 mg tablet 4 mg PO DAILY Qty: 2 0RF Rx Instructions: Take one tablet once daily for two days docusate sodium [Colace] 100 mg capsule 100 mg PO BID Qty: 30 0RF oxycodone 5 mg tablet 5 mg PO Q4H PRNQty: 18 0RF Rx Instructions: Take one tablet up to every 4 hours as needed for severe postoperative pain Continued betamethasone dipropionate 0.05 % ointment 1 applic TP BID PRN (Reason: rash arms) Qty: 45 1RF pravastatin 40 mg tablet 40 mg PO QHS Qty: 90 3RF carvedilol 25 mg tablet 25 mg PO BID Qty: 180 3RF Rx Instructions: must administer with a meal/food gabapentin 300 mg capsule See Rx Instructions PO QHS Qty: 100 3RF Rx Instructions: 300mg orally every day at bedtime for one week, then may increase to 600mg for a week, and then 900mg at HS nightly. valsartan 320 mg tablet See Rx Instructions .ROUTE .COMPLEX Qty: 90 3RF Dose Instruction: TAKE ONE TABLET BY MOUTH EVERY DAY Rx Instructions: TAKE ONE TABLET BY MOUTH EVERY DAY Discontinued naproxen sodium [Aleve] 220 mg tablet 220 mg PO DAILY ibuprofen 800 mg tablet 800 mg PO TID PRN (Reason: pain) Qty: 270 3RF Discharge Instructions Additional Instructions: Total Knee Discharge Instructions Activity: The most important activity is to walk and to work on gentle motion (both flexion and extension). You should try to take short walks a few times a day. It is important that when resting you work on keeping the knee straight. Avoid putting a pillow behind the knee as this will encourage flexion. Work on range of motion exercises as provided by Physical Therapy. - Start outpatient physical therapy within 2 weeks. - You should wear the STEPHANIE hose on both legs for 2 weeks. You may remove these at night. You may also use any compression sock in place of the STEPHANIE hose. - Utilize [employer] to review exercises, see videos on exercises and obtain basic information pertaining to your surgery and your recovery. Dressing: Remove the Laron wrap by 2 days after your surgery and put on the STEPHANIE stocking given to you from the hospital. Keep the surgical dressing (underneath the LARON wrap) in place for at least one week. After the first week it may be removed and replaced with light gauze and tape or nothing. The wound and dressing may get wet after 3 days but avoid soaking the dressing or otherwise it will need to be changed. Many people prefer covering the dressing with cling wrap (saran wrap) to minimize it from getting soaked. If it gets wet, just pat dry. If it starts to peel off then it will need to be changed. Medications: - You should take Tylenol and anti-inflammatory Celebrex as your primary pain control medications. If the Celebrex is too expensive or not covered, please call the office for another alternative (Advil/Ibuprofen or Naproxen/Aleve) - You have been prescribed a stronger pain medication Oxycodone for breakthrough pain, take as needed as prescribed. - You have also been prescribed a stomach acid reduction agent Pantoprozole to help reduce stomach acid and reflux. - You take Gabapentin at baseline - continue to take at night for restlessness and nerve pain. - You will be taking Aspirin 81mg twice a day for DVT prevention unless i nstructed otherwise. - You have also been prescribed Decadron to take to control post-operative nausea and pain. You will start this tomorrow. - If you have constipation you should take Colace (which has been prescribed) or Miralax (which is available [id number]). It takes most people 3-4 days to have a bowel movement. Follow-up: 2 weeks If you have any acute concerns or questions, please do not hesitate to contact the office at [phone]. You may contact Dr. Michaud with any questions after hours through the hospital at [phone] or on his cell phone at [phone]. Stand Alone Forms: Anesthesia Discharge InstAllen, Nerve Block Instructions, Wil Mckeon (DSU) Referrals: Gustavo Michaud MD [ [facility] STAFF PHYSICIAN] - 03/22/23 8:45 am Equipment/Supplies: Walker Activity:: Elevate Remove Dressings/Wound Care:: Do Not Remove Shower/Bathe:: 72 hours and Cover Diet:: As Tolerated Discharge Orders Discharge Orders: Discharge Order (Routine); Ordered 03/06/23 Ordered By: Janina Fraga Discharge Data Discharge Date/Time-TO BE ENTERED AT DEPARTURE: 03/06/23 14:10 DS: Summary Time Spent with Patient providing and/or coordinating discharge services: Less than 30 minutes Status at Discharge Functional status at discharge: uses cane/walker Overall status at discharge: patient is progressing back to baseline Mental Status: mental status grossly normal Speech and Movement: speech and movement normal Mood: congruent mood Affect: normal affect Exam Psych Mental Status: mental status grossly normal Speech and Movement: speech and movement normal Mood: congruent mood Affect: normal affect DS: Data Vitals/I&O Vitals and I&O: Intake & Output 03/05/23 03/05/23 03/06/23 11:59 23:59 11:59 Weight 263 lb 0.007 oz PFSH All Active Problems (Updated 03/06/23 @ 14:14 by Christophe Atkinson RN) History of total left knee replacement (Acute ~03/06/23) Right knee DJD (Acute) DEPO MEDROL 11/16/22 Chronic pain of left knee (Acute) 03/01/22 [facility] 04/17[facility]22 F/U Orthopedics Spinal stenosis, lumbar region without neurogenic claudication (Acute) Lumbar spondylosis (Acute) Lumbar radiculopathy (Acute) Hypertension (Chronic) Spinal stenosis at L4-L5 level (Acute) Left leg weakness (Acute) Lumbar pain with radiation down left leg (Acute) 10/11/21 Neurosurgery Eczema (Acute) Failure to attend screening for abdominal aortic aneurysm (AAA) (Acute) IFG (impaired fasting glucose) (Acute) Colonoscopy refused (Acute) Opioid use (Acute) Unspecified essential hypertension (Acute 06/07/12) FRS 13% Tobacco dependence syndrome (Acute 03/29/11) 15pk/yrs Low back pain with sciatica (Acute 06/07/12) Hyperlipidemia (Acute 09/09/14) Depressive disorder (Chronic 03/29/11) Chronic pain syndrome (Acute 03/29/11) 10/25 comm score of 5 negative low risk abuse misuse Calculus of ureter (Acute 05/15/17) Calculus of kidney (Acute 06/07/12) Adjustment disorder, unspecified (Acute 04/20/16) Adjustment disorder with depressed mood (Acute 06/07/12) Surgical History (Updated 03/06/23 @ 14:14 by Christophe Atkinson RN) Hx of discectomy L5-S1 x2 S/P epidural steroid injection 10/28/2020 Left L3-L4 No relief of symptoms per [facility] Hx of lithotripsy Family History Father Personal history of malignant neoplasm ? melanoma or lymphoma, Zach not sure. Social History Smoking/Tobacco Use Status: Former Tobacco Use Quit Date: 03/19/17 Smoking risk assessment performed?: Yes Alcohol Intake: current Alcohol Intake frequency: 3 or more drinks per day Alcohol type: beer Drug use: Daily Substance use type: marijuana Housing: house 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[employer], [employer] What type of physical activity do you participate in: walking Do you feel safe at home: Yes Do you feel safe in your relationship?: Yes Additional Social history: lives alone Time Spent with Patient Time Spent with Patient: <45 minutes Time was spent: preparing to see the patient(eg.review tests), ordering medications,tests, procedures, indepentently interpreting results and counseling the patient
--- NOTE | 2023-03-06 07:54 | W.ANESPRE ---
General Info Date of Service Date Performed: 03/06/23 Height: 5 ft 9 in Weight: 119 kg Body Mass Index (BMI): 38.7 Surgical Procedure: Operation Date: 03/06/23 09:40 Proposed Procedure Side Surgeon p Knee Total Arthroplasty Left Gustavo Michaud MD Meds Allergies and Home Medications Allergies Allergy/AdvReac Type Severity Reaction Status Date / Time chlorthalidone AdvReac Intermediate PINON and Verified 03/06/23 07:23 syncope sertraline AdvReac Intermediate diarrhea Verified 03/06/23 07:23 lisinopril AdvReac Mild cough Verified 03/06/23 07:23 Home Medication Medication Instructions Recorded betamethasone dipropionate 0.05 % 1 applic topical BID PRN rash arms 07/12/21 topical ointment #45 grams carvedilol 25 mg tablet 25 mg PO BID #180 tabs 01/30/22 pravastatin 40 mg tablet 40 mg PO QHS #90 tabs 01/30/22 valsartan 320 mg tablet See Rx Instructions .Route 11/28/22 .COMPLEX #90 tabs gabapentin 300 mg capsule See Rx Instructions PO QHS #100 12/18/22 caps acetaminophen 500 mg tablet 1,000 mg (2 x 500 mg) PO Q8H PRN 03/06/23 pain #90 tabs aspirin 81 mg tablet,delayed 81 mg PO BID 30 days #60 tabs 03/06/23 release celecoxib 200 mg capsule (Celebrex) 200 mg PO BID PRN #60 caps 03/06/23 dexamethasone 4 mg tablet 4 mg PO DAILY #2 tabs 03/06/23 docusate sodium 100 mg capsule 100 mg PO BID #30 caps 03/06/23 (Colace) oxycodone 5 mg tablet 5 mg PO Q4H PRN #18 tabs 03/06/23 pantoprazole 40 mg tablet,delayed 40 mg PO DAILY #14 tabs 03/06/23 release Current Visit Medications: Current Medications Generic Name Dose Route Start Last Admin Trade Name Freq PRN Reason Stop Dose Admin Acetaminophen 1,000 mg 03/06/23 06:00 Acetaminophen 500 Mg Tab PO 04/05/23 05:59 PREOP KAZ Celecoxib 400 mg 03/06/23 06:00 Celecoxib 200 Mg Cap PO 04/05/23 05:59 PREOP KAZ Gabapentin 300 mg 03/06/23 06:00 Gabapentin 300 Mg Cap PO 04/05/23 05:59 PREOP KAZ Hydromorphone HCl 0.5 mg 03/06/23 07:25 Hydromorphone 2 Mg/Ml Syr IVP 04/05/23 07:24 Q2H PRN PRN Tranexamic Acid 1,000 mg/ 60 mls @ 360 mls/hr 03/06/23 06:00 Sodium Chloride IVPB 04/05/23 05:59 PREOP KAZ Ringer's Solution 1,000 mls @ 80 mls/hr 03/06/23 06:00 IV 03/06/23 23:59 INFUSION KAZ Cefazolin Sodium/Dextrose 2 gm in 50 mls @ 100 mls/hr 03/06/23 06:00 Ancef Duplex IVPB 03/06/23 23:59 PREOP KAZ Cefazolin Sodium/Dextrose 1 gm in 50 mls @ 100 mls/hr 03/06/23 08:00 Ancef Duplex IVPB 03/07/23 00:29 Q8H KAZ IV Miscellaneous Supplies 1 each 03/06/23 06:00 Iv Access IV 03/06/23 23:59 DIRECTED KAZ Oxycodone HCl 0 mg 03/06/23 07:25 Oxycodone 5 Mg Tab PO 04/05/23 07:24 Q3H PRN PRN Pain Sodium Chloride 0 ml 03/06/23 06:00 Normal Saline Flush 10 Ml Syr IV 03/06/23 23:59 PRN PRN Sodium Chloride 0 ml 03/06/23 06:00 Normal Saline 10 Ml Vial IJ 03/06/23 23:59 DIRECTED PRN Sterile Water 0 ml 03/06/23 06:00 Water,Injection,Sterile 10 Ml Vial IJ 03/06/23 23:59 DIRECTED PRN PFSH Active Problems Active Problems: Problem Status Onset Code Right knee DJD M17.11 Degenerative arthritis of left knee M17.12 Chronic pain of left knee M25.562, G89.29 Spinal stenosis, lumbar region without neurogenic claudication M48.061 Lumbar spondylosis M47.816 Lumbar radiculopathy M54.16 Hypertension I10 Spinal stenosis at L4-L5 level M48.061 Left leg weakness R29.898 Lumbar pain with radiation down left leg M54.5, M79.605 Eczema L30.9 Failure to attend screening for abdominal aortic aneurysm (AAA) IFG (impaired fasting glucose) R73.01 Colonoscopy refused Z53.20 Opioid use F11.90 Unspecified essential hypertension 06/07/12 I10 Tobacco dependence syndrome 03/29/11 F17.200 Low back pain with sciatica 06/07/12 M54.40 Hyperlipidemia 09/09/14 E78.5 Depressive disorder 03/29/11 F32.9 Chronic pain syndrome 03/29/11 G89.4 Calculus of ureter 05/15/17 N20.1 Calculus of kidney 06/07/12 N20.0 Adjustment disorder, unspecified 04/20/16 F43.20 Adjustment disorder with depressed mood 06/07/12 F43.21 Medical History Medical History Comments:: Marijauna daily, last yesterday; beer daily Surgical History Surgical History Hx of discectomy L5-S1 x2 S/P epidural steroid injection 10/28/2020 Left L3-L4 No relief of symptoms per [facility] Hx of lithotripsy Tobacco Smoking/Tobacco Use Status: Former Tobacco Use Alcohol Alcohol Intake: current Alcohol intake frequency: 3 or more drinks per day Alcohol type: beer Substance Use Substance use: Daily Substance use type: marijuana Vital Signs and Lab Results Lab Results Blood Type / Crossmatch: No Data to Display Complete Blood Count: White Blood Count 7.06 10^3/uL (4.4-10.8) 02/21/23 08:43 Red Blood Count 4.35 10^6/uL (4.36-5.78) L 02/21/23 08:43 Hemoglobin 13.7 g/dL (13.5-17.5) 02/21/23 08:43 Hematocrit 39.7 % (40.0-50.0) L 02/21/23 08:43 Platelet Count 244 10^3/uL (130-400) 02/21/23 08:43 Complete Metabolic Panel: Sodium 141 mmol/L (136-145) 02/21/23 08:43 Potassium 4.7 mmol/L (3.5-5.1) 02/21/23 08:43 Chloride 106 mmol/L (98-107) 02/21/23 08:43 Carbon Dioxide 24.0 mmol/L (21.0-32.0) 02/21/23 08:43 BUN 22 mg/dL (7-18) H 02/21/23 08:43 Creatinine 1.2 mg/dL (0.70-1.30) 02/21/23 08:43 Est GFR (CKD-EPI 2020) 66.28 (mL/min/1.73m2) 02/21/23 08:43 Calcium 9.7 mg/dL (8.5-10.1) 02/21/23 08:43 Glucose 137 mg/dL (74-106) H 02/21/23 08:43 Liver Function Panel: No Data to Display Coagulation Panel: No Data to Display Cardiac Panel: No Data to Display Arterial Blood Gas: No Data to Display Venous Blood Gas: No Data to Display Pancreas Panel: No Data to Display Thyroid Panel: No Data to Display Infectious Disease: No Data to Display Blood Cultures: No Data to Display Toxicology Panel: No Data to Display Anesthesia Assessment and Plan Anesthesia History Personal History: No History of Anesthesia Complications Family History: No Family History of Anesthesia Complications Exercise Tolerance Exercise Tolerance: Metabolic Equivalents>4 Pertinent Negatives Pertinent Negatives: No Symptoms of GERD, No Major Cardiovascular Symptoms or Complaints and No Major Pulmonary Symptoms or Complaints Cardiac & Pulmonary Exam Cardiac Exam: Normal S1/S2 Heart Sounds Pulmonary Exam: Clear Bilateral Breath Sounds Implantable Cardiac Device Does patient have a Pacemaker or an ICD?: No Airway Exam Known Difficult Airway: No Previous Airway Comments:: Snoring Mallampati Class: 3 Mouth Opening: Normal (> 3cm) Thyromental Distance: Greater than 3 cm Neck Range of Motion: Full ROM Neck Circumference: Normal Teeth Condition: Normal Dentition ASA Classification ASA Score: ASA 2 Emergency Case?: No NPO Status NPO Status: NPO Clears >2 hours, Solids >8 hours Anesthesia Plan Resuscitation Status: Full Code Anesthesia Technique: Spinal Anesthesia Airway Planned: Natural Airway Pain Management: Surgeon and patient request nerve block Monitors Used: Standard Monitors
[2023-03-06] MEDS: Lactated Ringers 1,000 ML 80 ML IV (07:55)
[2023-03-06] MEDS: Acetaminophen 500 MG TAB 1000 MG PO (08:00)
[2023-03-06] MEDS: Gabapentin 300 MG CAP PO (08:01)
[2023-03-06] MEDS: Celecoxib 200 MG CAP 400 MG PO (08:01)
--- NOTE | 2023-03-06 08:31 | W.ANESNERVE ---
Nerve Block Single Injection Procedure Date and Time Date Performed: 03/06/23 Procedure Start: 08:09 Location Where Procedure Performed Procedure Location: Day Surgery Unit Reason Performed: Postoperative Analgesia Requesting Provider: Gustavo Michaud Timeout Performed Timeout Performed: Yes Monitoring Used ECG, Blood Pressure, SpO2 and See EMR for corresponding vital signs Sterility Sterility: Hand Hygiene, Surgical Cap, Surgical Mask, Sterile Gloves, Sterile Drape/Sheet and Chlorhexidine Sedation Given During Procedure Sedation Given (Indicate Dose Given): No Sedation given Patient Mental Status Patient Mental Status: Awake Nerve Block 1st Nerve Block: Laterality: Left Block Type: Adductor Canal Ultrasound Image Saved?: Yes Needle / Catheter Used: 100mm SonoPlex II Local Anesthetic Bolus (Indicate Dose Given): Lidocaine used for local infiltration of skin, Injected in 3-5ml increments after negative blood aspiration and Bupivacaine 0.25% Dose:: 15 ml Additives (Indicate Dose Given): None Ultrasound: Sterile probe cover and gel used Nerve Stimulator: Not Used Paresthesia: None Procedure Tolerated: No Complications and Patient tolerated well Procedure Outcome: Successful Performed By: Destiny Hankins
[2023-03-06] MEDS: ceFAZolin 2 GM/50 ML BAG IVPB (09:05)
--- NOTE | 2023-03-06 10:27 | ROE_ITS ---
Date of service: 03/06/23 Time of Service: 09:30 Operative Note Operative Note DATE OF PROCEDURE: 03/06/23 PRE-OP DIAGNOSIS: Left Knee Osteoarthritis POST-OP DIAGNOSIS: same PROCEDURE: Left Total Knee Replacement SURGEON: Gustavo Michaud [employer] DRIVER: Janina Fraga ANESTHESIA TYPE: Spinal Refer to Anesthesia Record ESTIMATED BLOOD LOSS: 50 PATHOLOGY: none sent TOURNIQUET TIME: 0 COMPLICATIONS: None Patient was transported to: PACU Patient's condition: stable Implants: 1. Depuy Attune Cruciate Retaining Femoral Component, Size 8 2. Depuy Attune Fixed Bearing Tibial Component, Size 8 3. Depuy Attune 8x7 CR,FB Poly 4. Depuy Attune Patellar Component, Size 38 Indications: I have seen Zach in clinic for symptoms of knee arthritis, confirmed with radiographic findings. He has exhausted nonoperative methods and was having significant limitations in daily function and desired better function and less pain. I discussed the technical details of a knee replacement. I explained the risks of the procedure to include, but not limited to, bleeding, infection, pain, stiffness, fracture, damage to nerves and vessels, damage to muscles and tendons, loosening, need for repeat procedure, blood clot and cardiopulmonary demise. Despite these risks, Zach elected to proceed. Findings: There was significant signs of arthritis throughout the knee, focused medially but also present on the lateral femur and patella. Procedure Description: Zach was greeted in the preoperative holding area where the correct side was identified and marked. The consent was reviewed with the patient and signed. The history and physical was updated. All questions were answered. Preoperative medications were administered: Acetaminophen 1000mg, Celebrex 400mg, and Gabapentin 300mg. An adductor canal block was then administered by the anesthesia team in the PACU. Zach was taken back to the operating room. A spinal anesthestic was then administered. The patient was placed into the supine position on the operating room table. A nonsterile tourniquet was placed high onto the leg but only used for cementing. Posts were placed for positioning during the procedure. All bony prominences were well padded. Prophylactic antibiotics in the form of Cefazolin were administered. 1g of Tranxemic Acid was given intravenously within 30 minutes of incision. The left leg was then prepped with Chloraprep and draped in a standard fashion with impervious stockinette. A second prep with Chloraprep was performed prior to application of Iodine impregnated skin protection. A timeout to confirm correct identity, side and site, procedure, allergies, anesthesia, and medical concerns was performed. With the knee in some flexion, a midline incision was made overlying the knee. Full thickness skin flaps were raised once the extensor mechanism was encountered. These were raised medially and laterally. Any bleeding was controlled with electrocautery. Once the extensor mechanism was fully exposed, a medial parapatellar arthrotomy was performed in a flexed position. All bleeding from the arthrotomy and the geniculate arteries was coagulated. A medial subperiosteal peel was performed with electrocautery to the midcoronal plane. Due to the significant varus deformity the entire medial tibial plateau was exposed. The fat pad was removed while keeping the patellar tendon protected. The anterior distal femur synovium was removed for later visualization. The ACL and PCL were resected and the anterior horn of the lateral meniscus was transected. The knee was then flexed with the patella everted. Large osteophytes from the tibia were removed. Large osteophytes from the femur were removed. Using a step drill, and based on preoperative templating, the femoral canal was entered. This was done with a step drill without any difficulty. The intramedullary distal femoral cut guide was inserted, set to a 5 degree valgus cut and 9mm cut thickness. The distal femoral cut guide was then held in position and pinned. With the soft tissues protected, the distal cut was performed. This was passed over a few times to ensure a planar cut. I then turned attention to the tibia. The extramedullary guide was placed onto the leg. The distal aspect was slid medial to adjust for position of center of ankle and stay in line with shaft of the tibia. Approximately 3-5 degrees of posterior slope was kept in the proximal cutting guide. The center of the guide was aligned with the PCL. The stylus was used to assess cut thickness. The medial side, most involved side, was set for a 3mm cut. This was then held in position and pinned into place with 2 additional pins and a cross pin for stability. The medial and lateral collateral ligaments were protected and the cut was performed. With this completed, it was assessed and noted to be of appropriate dimensions. The guide was removed. A spacer block was inserted and the knee was brought into extension. The 6mm spacer block provided full extension, without hyperextension and with stability of both the medial and lateral collateral ligaments was assessed. The pins from the femur and the tibia were then removed. The distal femur was then sized. The anterior stylus was placed onto the lateral ridge of the anterior femur. This indicated a size 8 femur. The external rotation of the guide was adjusted to 3 degrees to match the epicondylar axis, perpendicular to Enoch?s line. The 4-in-1 cutting guide was the placed. The posterior medial femur cut was evaluated and appeared of good thickness. The spacer block was inserted underneath the cutting guide and stability was confirmed in 90 degrees of flexion. An tres wing was used to confirm appropriate position of the anterior cut to avoid notching. This cutting guide was ensured to be flush on the cut surface and then pinned into place with headed pins. While protecting the soft tissues, quad tendon, and collateral ligaments, the anterior and posterior cuts were performed with a saw. The central two pins were removed and the posterior and anterior chamfers were cut next. The notch-cutting guide was placed. This was pinned to lateralize the femoral component as much as possible while keeping it flush on the cut surface. This was then pinned into position. A reciprocating saw was used to make the notch cut. A rasp smoothed the cut surfaces. The medial and lateral menisci were removed. A trial femoral component was then inserted, impacted down to the cut surfaces, and the lug holes were drilled. A provisional trial tibial component was placed and the knee was brought through range of motion. The polyethylene was trialed until there was good flexion and extension with excellent stability to the medial and lateral collaterals. The patella was tracking without thumbs. A size 7mm polyethylene component provided the best range of motion and stability with less than 2mm gapping with medial and lateral stress and full extension without significant hyperextension. The tibial cut surface was fully exposed. The tibia was then sized as a 8. The tibia had been previously marked during trialing to correspond to the center of the tibial component to help with rotation. The trial was aligned to this mary, approximately rotated to the medial 1/3rd of the tibial tubercle. The trial was pinned into place. The tibia was prepared with a reamer and a keel punch and lug holes. The knee was then brought into extension and the patella was measured as 30mm. Using the patellar clamp and cut guide, this was resected to a flat surface with at least 13mm of thickness remaining. The size 38 patella fit the best. This was oriented and then clamped into position. The lugs were drilled. The trial components were removed. The final components were opened on the back table. The periosteal and capsular tissues, especially posteriorly, around the knee were then systematically injected with a periarticular cocktail consisting of 246mg of Ropivacaine, 0.5mg of Epinephrine, 0.08mg of Clonidine, and 30mg of Ketorolac, diluted to 100cc. On the back table, with the implants opened, the cement was mixed. One batch of high viscosity cement was prepared with vacuum assistance. After the cement was ready a small amount was placed on the cut surface of the patella and the patellar button was clamped into position and held. While the cement was hardening, the cementless knee components were placed. Starting with the tibial component, the tibia was subluxed anteriorly and the lug holes of the component were lined up. The tibia was then impacted with an impactor and mallet until the tibial component was in contact with the tibia. The final polyethylene component was inserted. Then, the femoral component was inserted. The lug holes were aligned and the component was impacted into position. The knee was irrigated with Irrisept Chlorhexadine solution. This was allowed to sit in the knee for 3 minutes and then it was irrigated out with saline. After the cement had finally cured, approximately 15min, the clamp was removed from the patella and the knee was taken through range of motion. The patella was tracking with a no-thumbs technique. The capsule was then reapproximated with a No. 1 Vicryl at multiple locations. The capsule was finally closed with a No. 2 Stratafix, barbed suture. The second dosing of 1g TXA was started. Deep tissues were then reapproximated with 0 Vicryl and 2-0 Vicryl. The skin was closed with a running 3-0 Monocryl in a subcuticular fashion. This was reinforced with skin glue. A Mepilex silver dressing was applied along with a [id number] OLIVE wrap. A CryoCuff was applied. Zach was transferred to the hospital bed without difficulty an suffering no apparent complication. He has a good prognosis. Physical therapy will start today and without restrictions, weight-bearing as tolerated. Aspirin 81mg BID will be used for DVT prophylaxis.
[2023-03-06] MEDS: fentaNYL 100 MCG/2 ML VIAL IVP ×2 (11:10→11:27)
[2023-03-06] MEDS: oxyCODONE 5 MG TAB PO (12:10)
--- NOTE | 2023-03-06 12:25 | W.ANESPOSTOP ---
Postoperative Evaluation Date, Time and Location Date Performed: 03/06/23 Time Performed: 11:30 Patient Location: PACU Vital Signs Most Recent Imported Vital Signs: Most Recent Vital Signs Temp Pulse Resp BP Pulse Ox 36.3 C L 56 L 16 129/71 95 03/06/23 11:40 03/06/23 11:40 03/06/23 11:40 03/06/23 11:40 03/06/23 11:40 Pain Score Most Recent Pain Score: Most Recent Pain Score Pain Level 5 03/06/23 11:40 Assessment Mental Status: Awake (Alert & Oriented to Patient Baseline) Airway and Respiratory Function: Patent airway with normal (patient baseline) respiratory exam Cardiovascular Function: Hemodynamically Stable Hydration Status: Adequately Hydrated Nausea & Vomiting: No Nausea or Vomiting Pain: Pain is tolerable per patient (pain 3/10) Peripheral Nerve Block: Regional nerve block not resolved at time of post operative discharge
--- NOTE | 2023-03-06 12:50 | IN_ITS ---
PT Notes Visit Reasons: Left knee DJD Physical Therapy Day Surgery Initial Evaluation Date: 03/06/2023 Referring Doctor: NICHOLAS Chew PT Orders: PT CONSULT: Evla/Treat Precautions: WBAT on the L LE with Ad. Patient Profile/Admitting Diagnosis: Zach is a 67-year-old male with degenerative joint disease of the left knee and is status post left total knee arthroplasty on postoperative day 0. PMHX: All Active Problems (Updated 11/16/22 @ 09:05 by Christophe Atkinson RN) Right knee DJD (Acute) DEPO MEDROL 11/16/22Degenerative arthritis of left knee (Acute) DEPO MEDROL 11/16/22Chronic pain of left knee (Acute) 03/01/22 [facility] 04/17/22 F/U Orthopedics Spinal stenosis, lumbar region without neurogenic claudication (Acute) Lumbar spondylosis (Acute) Lumbar radiculopathy (Acute) Hypertension (Chronic) Spinal stenosis at L4-L5 level (Acute) Left leg weakness (Acute) Lumbar pain with radiation down left leg (Acute) 10/11/21 Neurosurgery Eczema (Acute) Failure to attend screening for abdominal aortic aneurysm (AAA) (Acute) IFG (impaired fasting glucose) (Acute) Colonoscopy refused (Acute) Opioid use (Acute) Adjustment disorder with depressed mood (Acute 06/07/12) Adjustment disorder, unspecified (Acute 04/20/16) Calculus of kidney (Acute 06/07/12) Calculus of ureter (Acute 05/15/17) Chronic pain syndrome (Acute 03/29/11) 10/25 comm score of 5 negative low risk abuse misuse Hyperlipidemia (Acute 09/09/14) Low back pain with sciatica (Acute 06/07/12) Tobacco dependence syndrome (Acute 03/29/11) 15pk/yrs Unspecified essential hypertension (Acute 06/07/12) FRS 13% Depressive disorder (Chronic 03/29/11) Surgical History (Updated 12/13/20 @ 15:50 by Sona Mena RN) Hx of lithotripsy S/P epidural steroid injection 10/28/2020 Left L3-L4 No relief of symptoms per [facility] Social History/Home Situation: Lives alone in a private home with 2 steps to enter with rails on both sides. Independent with all aspects of ADLs prior to surgery. Equipment Owned/DME: None Subjective: Reports 2?3/10 pain in the left knee at rest and with movement. Amazed at how better he is able to perform without the crunching and grinding from in the L knee from arthritis before surgery. Objective: General Observation: Resting in bed. Laron wraps to left LE. Cryocuff to left knee. T left shift EDS to right leg. Mental Status: A and O x 4 Pain: As above ROM: Right Lower Extremity: Hip flexion WFL. Hip abduction WFL. Knee flexion WFL. Ankle dorsiflexion WFL. Ankle plantarflexion WFL. Left Lower Extremity: Hip flexion WFL. Hip abduction WFL. Knee flexion WFL. Ankle dorsiflexion WFL. Ankle plantarflexion WFL. Strength: Right Lower Extremity: Hip flexors 5/5. Hip abductors 5/5. Knee flexors 5/5. Knee extensors 5/5. Ankle dorsiflexors 5/5. Ankle plantarflexors 5/5. Left Lower Extremity:Hip flexors 4/5. Hip abductors 4/5. Knee flexors 3-/5. Knee extensors 4-/5. Ankle dorsiflexors 5/5. Ankle plantarflexors 5/5. Sensation: Intact as to pain and light pressure in BLE Bed Mobility/Transfers: Minimal cueing provided for use of B hands as needed for support, movement sequence, Ad management, and and posture to reduce fall risk and minimize pain report Supine to sit standby assist Sit to stand contact-guard assist Stand to sit standby assist Bed to chair standby assist Gait: Facilitated safe and correct performance of level surface ambulation covering a distance of 150 feet using front wheeled walker with reciprocal step to heel-toe gait pattern requiring only standby assist with minimal verbal cueing provided for increased knee flexion on the left during swing phase, AD management, pos ture, and overall safety to reduce fall risk and minimize pain report. Stairs: Guided patient with safe and correct negotiation of 6 x 4 inch steps and 4 x 6 inch steps holding onto bilateral rails with step to gait pattern requiring only standby assist with minimal verbal cueing provided for increased knee flexion during ascent of left knee and overall safety to reduce fall risk and minimize pain report. Balance: Static Sitting: Normal Dynamic Sitting: Normal Static Standing: Fair Dynamic Standing: Fair Special Tests: Mobility Limitations Standardized Measure [facility] AM-PAC 6 clicks Basic Mobility Inpatient Short Form: Raw Score: 23 CMS Score: 11% deficit Informed Consent/Education: Patient instructed in purpose of PT consult. Packet containing TKA exercise protocol has been given to patient. Education and training on initial set of exercises that can be done at home have been completed with patient. Trained patient with correct performance of exercises below to maximize motor control, joint flexibility, soft tissue extensibility of the L knee musculature: Access Code: [email or web address] URL: [email or web address] Date: 03/06/2023 Prepared by: Umm Nur Exercises - Supine Quad Set - 1 x daily - 7 x weekly - 1 sets - 10 reps - 5 hold - Supine Heel Slide - 1 x daily - 7 x weekly - 1 sets - 10 reps - 5 hold - Supine Ankle Pumps - 1 x daily - 7 x weekly - 1 sets - 10 reps - 5 hold - Small Range Straight Leg Raise - 1 x daily - 7 x weekly - 1 sets - 10 reps - 5 hold - Seated March - 1 x daily - 7 x weekly - 1 sets - 10 reps - 5 hold Assessment: Patient requires the use of a front wheeled walker for all mobility ADL performance to maximize independence and reduce fall risk. Patient presents with clinical signs and symptoms consistent with current/admitting diagnoses that have resulted to mobility limitations, gait instability, generalized weakness, and impairment of motor control as demonstrated by the following impairment level findings: 1. Decreased strength to left knee major muscle groups 2. Impaired standing balance 3. Limitation of joint range of motion in left knee Impairments are contributing to the following functional limitations: 1. Inability to safely ambulate without assistive device 2. Increase completion time for mobility ADL performance 3. Increased fall risk Patient is assessed as a 30876 moderate complexity based on the following: History: 67-year-old male with impairment level findings, functional limitations, and past medical history as indicated above Examination: Demonstrable impairment in strength, balance, and mobility level with underlying impairments and functional limitations as documented above Presentation: Evolving Decision Makin moderate complexity Goals: N/A. PT evaluation and 1-2 treatment sessions only for functional mobility training using recommended AD and for HEP instruction. Plan of Care/Treatment Plan: N/A. PT evaluation and 1-2 treatment session only for functional mobility training using recommended AD and for HEP instruction. DISCHARGE RECOMMENDATIONS: Home when medically cleared by orthopedic surgeon. Recommend outpatient PT services in order to optimize functional mobility outcomes and facilitate return to independent community ambulation without an assistive device. TREATMENT CODE/TIME: 76802 x 20 minutes for 1 unit, 05259 x 19 minutes for 1 unit beginning at 12:50 PM. Thank you for the opportunity to participate in the care of this patient. Umm Nur PT, DPT, CLT [facility] [place], [place]
== END 2023-03-06 14:10 | disposition home or self-care (01) ==
PROVIDERS: PCP Nurse Practitioner; Visit Provider Student in an Organized Health Care Education/Training Program
PROC: (CPT 27447; principal; 2023-03-06 09:30)
DX: M17.12 Unilateral primary osteoarthritis, left knee (principal); F17.210 Nicotine dependence, cigarettes, uncomplicated; E78.5 Hyperlipidemia, unspecified; G89.4 Chronic pain syndrome; I10 Essential (primary) hypertension
CPT/HCPCS: 27447; 76942; 97162; 97530; J0690; J1100; J2250; J2371; J2405; J3010

== ENCOUNTER 2023-03-22 13:12 | Outpatient (CLI) | payer OTHER, SELFPAY ==
--- NOTE | 2023-03-22 08:46 | DI.RAD_ITS ---
Exam(s) XR KNEE LT 1V XR STANDING ALIGNMENT EXAM: XR STANDING ALIGNMENT CLINICAL HISTORY: 1ST POST OP S/P L TKA. TECHNIQUE: 2D digital imaging was performed. Five images were obtained. COMPARISON: CR XR KNEE LT 1V from 02/15/2023 CR XR STANDING ALIGNMENT from 02/15/2023 FINDINGS: There is extrinsic artifact overlying the hips bilaterally. BONES: The hips are well maintained. There are postsurgical changes of a left total knee replacement . The orthopedic hardware appears in good position. No suspicious lucencies are seen in or about th e orthopedic hardware. There is mild soft tissue swelling around the left knee. Atherosclerosis is present. Moderately severe degenerative changes are seen in the right knee with marked loss of the m edial femoral tibial joint space. Osteophytes are seen both medially and laterally. The ankles are well maintained.There is no significant leg length discrepancy. SOFT TISSUE: Atherosclerosis. IMPRESSION: 1. Left total knee replacement. 2. Moderately severe degenerative changes in the right knee. DATA REPOSITORY: RADIATION DOSE DELIVERED:
== END 2023-03-22 13:13 | disposition home or self-care (01) ==
LOC: DIORS 13:12
PROVIDERS: PCP Nurse Practitioner; Referring Provider Nurse Practitioner; Visit Provider Student in an Organized Health Care Education/Training Program
DX: Z96.652 Presence of left artificial knee joint (principal); Z47.1 Aftercare following joint replacement surgery
CPT/HCPCS: 73560; 77073

== ENCOUNTER 2023-07-06 02:59 | Outpatient (CLI) | payer MEDICARE, SELFPAY ==
[2023-07-06 09:03] LABS: HCT 43.1 % (40.0-50.0); HGB 14.5 g/dL (13.5-17.5); MCH 30.9 pg (27.0-33.0); MCHC 33.6 % (32.0-36.0); MCV 92 fL (80-95); MPV 10.8 fL (8.0-11.0); Platelet Count 282 10^3/uL (130-400); RBC 4.69 10^6/uL (4.36-5.78); RDW 12.8 % (11.8-14.1); RDW-SD 43.2 fL
[2023-07-06 10:16] LABS: Anion Gap 10.6 mmol/L (3-11); BUN 20 mg/dL (7-18); CO2 25.4 mmol/L (21.0-32.0); CREATININE 1.1 mg/dL (0.70-1.30); Calcium 9.9 mg/dL (8.5-10.1); Chloride 104 mmol/L (98-107); Estimated GFR 73.12 (mL/min/1.73m2); Glucose 137 mg/dL (74-106); Potassium 4.3 mmol/L (3.5-5.1); Sodium 140 mmol/L (136-145)
== END 2023-07-06 03:00 | disposition home or self-care (01) ==
LOC: LBO 02:59
PROVIDERS: PCP Nurse Practitioner; Visit Provider Student in an Organized Health Care Education/Training Program
DX: M17.11 Unilateral primary osteoarthritis, right knee (principal); Z01.818 Encounter for other preprocedural examination
CPT/HCPCS: 36415; 80048; 85027

== ENCOUNTER 2023-07-18 06:57 | Day surgery (SDC) | payer MEDICARE, SELFPAY ==
[2023-07-18] VITALS (8 sets, daily range): BP systolic 115–172; BP diastolic 65–96; PULSE 58–67; RESP 14–18; TEMP 36–36.7; O2SAT 97–99; BMI 37.9
[2023-07-18] MEDS: Acetaminophen 500 MG TAB 1000 MG PO (07:23)
[2023-07-18] MEDS: Gabapentin 300 MG CAP PO (07:23)
[2023-07-18] MEDS: Celecoxib 200 MG CAP 400 MG PO (07:23)
[2023-07-18] MEDS: Lactated Ringers 1,000 ML 80 ML IV (07:39)
--- NOTE | 2023-07-18 07:47 | W.ANESPRE ---
General Info Date of Service Date Performed: 07/18/23 Height: 5 ft 9 in Weight: 116.6 kg Body Mass Index (BMI): 37.9 Surgical Procedure: Operation Date: 07/18/23 09:55 Proposed Procedure Side Surgeon p Knee Total Arthroplasty, Cementless CR- sz 8 Right Gutsavo Michaud MD Actual Procedure Side Surgeon p Knee Total Arthroplasty, Cementless CR- sz 8 Right Gustavo Michaud MD Pre-Op Diagnosis Post-Op Diagnosis Right knee DJD Meds Allergies and Home Medications Allergies Allergy/AdvReac Type Severity Reaction Status Date / Time chlorthalidone AdvReac Intermediate PINON and Verified 07/18/23 07:07 syncope sertraline AdvReac Intermediate diarrhea Verified 07/18/23 07:07 lisinopril AdvReac Mild cough Verified 07/18/23 07:07 Home Medication Medication Instructions Recorded betamethasone dipropionate 0.05 % 1 applic topical BID PRN rash arms 07/12/21 topical ointment #45 grams pravastatin 40 mg tablet 40 mg PO QHS #90 tabs 01/30/22 valsartan 320 mg tablet See Rx Instructions .Route 11/28/22 .COMPLEX #90 tabs carvedilol 25 mg tablet See Rx Instructions .Route 05/21/23 .COMPLEX #180 tabs gabapentin 300 mg capsule See Rx Instructions .Route 06/18/23 .COMPLEX #100 caps ibuprofen 800 mg tablet 800 mg PO TID PRN pain #270 07/11/23 tab-caps Current Visit Medications: Current Medications Generic Name Dose Route Start Last Admin Trade Name Freq PRN Reason Stop Dose Admin Acetaminophen 1,000 mg 07/18/23 06:00 07/18/23 07:23 Acetaminophen 500 Mg Tab PO 07/18/23 23:59 1,000 mg PREOP KAZ Administration Celecoxib 400 mg 07/18/23 06:00 07/18/23 07:23 Celecoxib 200 Mg Cap PO 07/18/23 23:59 400 mg PREOP KAZ Administration Gabapentin 300 mg 07/18/23 06:00 07/18/23 07:23 Gabapentin 300 Mg Cap PO 07/18/23 23:59 300 mg PREOP KAZ Administration Ringer's Solution 1,000 mls @ 80 mls/hr 07/18/23 06:00 07/18/23 07:39 IV 07/18/23 23:59 80 mls/hr INFUSION KAZ Administration Cefazolin Sodium 3,000 mg/ 100 mls @ 200 mls/hr 07/18/23 06:00 Sodium Chloride IVPB 07/18/23 23:59 PREOP KAZ Tranexamic Acid/Sodium Chloride 1,000 mg in 100 mls @ 600 mls/hr 07/18/23 06:00 IVPB 07/18/23 23:59 PREOP KAZ IV Miscellaneous Supplies 1 each 07/18/23 06:00 Iv Access IV 07/18/23 23:59 DIRECTED KAZ Sodium Chloride 0 ml 07/18/23 06:00 Normal Saline Flush 10 Ml Syr IV 07/18/23 23:59 PRN PRN Sodium Chloride 0 ml 07/18/23 06:00 Normal Saline 10 Ml Vial IJ 07/18/23 23:59 DIRECTED PRN Sterile Water 0 ml 07/18/23 06:00 Water,Injection,Sterile 10 Ml Vial IJ 07/18/23 23:59 DIRECTED PRN PFSH Active Problems Active Problems: Problem Status Onset Code Right knee DJD M17.11 Chronic pain of left knee M25.562, G89.29 Spinal stenosis, lumbar region without neurogenic claudication M48.061 Lumbar spondylosis M47.816 Lumbar radiculopathy M54.16 Hypertension I10 Spinal stenosis at L4-L5 level M48.061 Left leg weakness R29.898 Lumbar pain with radiation down left leg M54.5, M79.605 Eczema L30.9 Failure to attend screening for abdominal aortic aneurysm (AAA) IFG (impaired fasting glucose) R73.01 Colonoscopy refused Z53.20 Opioid use F11.90 Unspecified essential hypertension 06/07/12 I10 Tobacco dependence syndrome 03/29/11 F17.200 Low back pain with sciatica 06/07/12 M54.40 Hyperlipidemia 09/09/14 E78.5 Depressive disorder 03/29/11 F32.9 Chronic pain syndrome 03/29/11 G89.4 Calculus of ureter 05/15/17 N20.1 Calculus of kidney 06/07/12 N20.0 Adjustment disorder, unspecified 04/20/16 F43.20 Adjustment disorder with depressed mood 06/07/12 F43.21 Surgical History Surgical History History of total left knee replacement (03/06/23) Hx of discectomy L5-S1 x2 S/P epidural steroid injection 10/28/2020 Left L3-L4 No relief of symptoms [place] [facility] Hx of lithotripsy Tobacco Smoking/Tobacco Use Status: Former Tobacco Use Alcohol Alcohol Intake: current Alcohol intake frequency: 3 or more drinks per day Alcohol type: beer Substance Use Substance use: Daily Substance use type: marijuana Vital Signs and Lab Results Vital Signs Most Recent Vital Signs in EMR: Most Recent Vital Signs Temp Pulse Resp BP Pulse Ox 36.7 C 67 16 172/96 H 98 07/18/23 07:09 07/18/23 07:09 07/18/23 07:09 07/18/23 07:09 07/18/23 07:09 Lab Results Blood Type / Crossmatch: No Data to Display Complete Blood Count: White Blood Count 8.60 10^3/uL (4.4-10.8) 07/06/23 08:58 Red Blood Count 4.69 10^6/uL (4.36-5.78) 07/06/23 08:58 Hemoglobin 14.5 g/dL (13.5-17.5) 07/06/23 08:58 Hematocrit 43.1 % (40.0-50.0) 07/06/23 08:58 Platelet Count 282 10^3/uL (130-400) 07/06/23 08:58 Complete Metabolic Panel: Sodium 140 mmol/L (136-145) 07/06/23 08:58 Potassium 4.3 mmol/L (3.5-5.1) 07/06/23 08:58 Chloride 104 mmol/L (98-107) 07/06/23 08:58 Carbon Dioxide 25.4 mmol/L (21.0-32.0) 07/06/23 08:58 BUN 20 mg/dL (7-18) H 07/06/23 08:58 Creatinine 1.1 mg/dL (0.70-1.30) 07/06/23 08:58 Est GFR (CKD-EPI 2020) 73.12 (mL/min/1.73m2) 07/06/23 08:58 Calcium 9.9 mg/dL (8.5-10.1) 07/06/23 08:58 Glucose 137 mg/dL (74-106) H 07/06/23 08:58 Liver Function Panel: No Data to Display Coagulation Panel: No Data to Display Cardiac Panel: No Data to Display Arterial Blood Gas: No Data to Display Venous Blood Gas: No Data to Display Pancreas Panel: No Data to Display Thyroid Panel: No Data to Display Infectious Disease: No Data to Display Blood Cultures: No Data to Display Toxicology Panel: No Data to Display Anesthesia Assessment and Plan Anesthesia History Personal History: No History of Anesthesia Complications Family History: No Family History of Anesthesia Complications Exercise Tolerance Exercise Tolerance: Metabolic Equivalents>4 Pertinent Negatives Pertinent Negatives: No Symptoms of GERD, No Major Cardiovascular Symptoms or Complaints, No Major Pulmonary Symptoms or Complaints and No History of CVA/TIA Cardiac & Pulmonary Exam Cardiac Exam: Normal S1/S2 Heart Sounds Pulmonary Exam: Clear Bilateral Breath Sounds Implantable Cardiac Device Does patient have a Pacemaker or an ICD?: No Airway Exam Known Difficult Airway: No Mallampati Class: 3 Mouth Opening: Normal (> 3cm) Thyromental Distance: Greater than 3 cm Neck Range of Motion: Full ROM Neck Circumference: Normal Teeth Condition: Normal Dentition ASA Classification ASA Score: ASA 2 Emergency Case?: No NPO Status NPO Status: NPO Clears >2 hours, Solids >8 hours Anesthesia Plan Resuscitation Status: Full Code Anesthesia Technique: Spinal Anesthesia Airway Planned: Natural Airway Pain Management: Surgeon and patient request nerve block Monitors Used: Standard Monitors
--- NOTE | 2023-07-18 08:11 | W.ANESNERVE ---
Nerve Block Single Injection Procedure Date and Time Date Performed: 07/18/23 Procedure Start: 07:58 Location Where Procedure Performed Procedure Location: Day Surgery Unit Reason Performed: Postoperative Analgesia Requesting Provider: Gustavo Michaud Timeout Performed Timeout Performed: Yes Monitoring Used ECG, Blood Pressure, SpO2 and See EMR for corresponding vital signs Sterility Sterility: Hand Hygiene, Surgical Cap, Surgical Mask, Sterile Gloves and Chlorhexidine Sedation Given During Procedure Sedation Given (Indicate Dose Given): No Sedation given Patient Mental Status Patient Mental Status: Awake Nerve Block 1st Nerve Block: Laterality: Right Block Type: Adductor Canal Ultrasound Image Saved?: Yes Needle / Catheter Used: 100mm SonoPlex II Local Anesthetic Bolus (Indicate Dose Given): Lidocaine used for local infiltration of skin, Injected in 3-5ml increments after negative blood aspiration, Bupivacaine 0.25% Dose:: 10ml and Exparel Dose:: 10ml Additives (Indicate Dose Given): None Ultrasound: Sterile probe cover and gel used Nerve Stimulator: Not Used Paresthesia: None Procedure Tolerated: No Complications and Patient tolerated well Procedure Outcome: Successful Performed By: Olaf Medina
[2023-07-18] MEDS: ceFAZolin 3,000 MG in Normal Saline 100 ML 200 MG IVPB (09:08)
[2023-07-18] MEDS: TRANEXAMIC ACID/SOD. CHL. 1,000 MG/100 ML BAG 600 MG IVPB (09:20)
--- NOTE | 2023-07-18 09:22 | W.PM.DSUDISC ---
Date of service: 07/18/23 Time of Service: 09:22 Discharge Plan Disposition Patient Disposition: Home Condition: Improving Discharge Details Reason For Visit: Right Knee Arthritis Attending Provider: Gustavo Michaud Primary Care Provider: Kalli Morgan Home Meds and New Rx's Prescriptions: New aspirin 81 mg tablet,delayed release (DR/EC) 81 mg PO BID Qty: 60 0RF acetaminophen 500 mg tablet 1,000 mg PO Q8H PRN (Reason: pain) Qty: 90 3RF pantoprazole 40 mg tablet,delayed release (DR/EC) 40 mg PO DAILY Qty: 30 0RF dexamethasone 4 mg tablet 4 mg PO DAILY Qty: 2 0RF Rx Instructions: Starting Post-Operative Day #1 (Day after surgery) oxycodone 5 mg tablet 5 mg PO Q4H PRNQty: 18 0RF Continued betamethasone dipropionate 0.05 % ointment 1 applic TP BID PRN (Reason: rash arms) Qty: 45 1RF pravastatin 40 mg tablet 40 mg PO QHS Qty: 90 3RF valsartan 320 mg tablet See Rx Instructions .ROUTE .COMPLEX Qty: 90 3RF Dose Instruction: TAKE ONE TABLET BY MOUTH EVERY DAY Rx Instructions: TAKE ONE TABLET BY MOUTH EVERY DAY carvedilol 25 mg tablet See Rx Instructions .ROUTE .COMPLEX Qty: 180 3RF Dose Instruction: TAKE ONE TABLET BY MOUTH TWICE A DAY TAKE WITH MEAL OR FOOD Rx Instructions: TAKE ONE TABLET BY MOUTH TWICE A DAY TAKE WITH MEAL OR FOOD gabapentin 300 mg capsule See Rx Instructions .ROUTE .COMPLEX Qty: 100 3RF Dose Instruction: TAKE 1 CAPSULE BY MOUTH EVERY DAY AT BEDTIME FOR 1 WEEK THEN MAY INCREASE TO 2 CAPSULES AT BEDTIME FOR A WEEK AND THEN 3 CAPSULES AT BEDTIME NGHTLY Rx Instructions: TAKE 1 CAPSULE BY MOUTH EVERY DAY AT BEDTIME FOR 1 WEEK THEN MAY INCREASE TO 2 CAPSULES AT BEDTIME FOR A WEEK AND THEN 3 CAPSULES AT BEDTIME NGHTLY ibuprofen 800 mg tablet 800 mg PO TID PRN (Reason: pain) Qty: 270 1RF Discharge Instructions Additional Instructions: Total Knee Discharge Instructions Activity: The most important activity is to walk and to work on gentle motion (both flexion and extension). You should try to take short walks a few times a day. It is important that when resting you work on keeping the knee straight. Avoid putting a pillow behind the knee as this will encourage flexion. Work on range of motion exercises as provided by Physical Therapy. - Start outpatient physical therapy within 2 weeks. - You should wear the STEPHANIE hose on both legs for 2 weeks. You may remove these at night. You may also use any compression sock in place of the STEPHANIE hose. - Utilize [employer] to review exercises, see videos on exercises and obtain basic information pertaining to your surgery and your recovery. Dressing: Remove the Laron wrap by 2 days after your surgery and put on the STEPHANIE stocking given to you from the hospital. Keep the surgical dressing (underneath the LARON wrap) in place for at least one week. After the first week it may be removed and replaced with light gauze and tape or nothing. The wound and dressing may get wet after 3 days but avoid soaking the dressing or otherwise it will need to be changed. Many people prefer covering the dressing with cling wrap (saran wrap) to minimize it from getting soaked. If it gets wet, just pat dry. If it starts to peel off then it will need to be changed. Medications: - You should take Tylenol and anti-inflammatory Ibuprofen as your primary pain control medications. You have been prescribed this in the past at 800mg three times a day. If you need more, please let the office know. - You have been prescribed a stronger pain medication Oxycodone for breakthrough pain, take as needed as prescribed. - You have also been prescribed a stomach acid reduction agent Pantoprozole to help reduce stomach acid and reflux. - You should continue your Gabapentin. - You will be taking Aspirin 81mg twice a day for DVT prevention unless instructed otherwise. - You have also been prescribed Decadron to take to control post-operative nausea and pain. You will start this tomorrow. - If you have constipation you should take Colace or Miralax (both [id number]). It takes most people 3-4 days to have a bowel movement. Follow-up: 2 weeks If you have any acute concerns or questions, please do not hesitate to contact the office at [phone]. You may contact Dr. Michaud with any questions after hours through the hospital at [phone] or on his cell phone at [phone]. Referrals: Gustavo Michaud MD [ [facility] STAFF PHYSICIAN] - Equipment/Supplies: Walker Activity:: Elevate Remove Dressings/Wound Care:: Do Not Remove Shower/Bathe:: Cover Diet:: As Tolerated Discharge Orders Discharge Orders: Discharge Order (Routine); Ordered 07/18/23 Ordered By: Gustavo Michaud
--- NOTE | 2023-07-18 10:38 | ROE_ITS ---
Date of service: 07/18/23 Time of Service: 09:30 Operative Note Operative Note DATE OF PROCEDURE: 07/18/23 PRE-OP DIAGNOSIS: Right Knee Osteoarthritis POST-OP DIAGNOSIS: same PROCEDURE: Right Total Knee Replacement SURGEON: Gustavo Michaud [employer] COORDINATOR: Shalini Brar ANESTHESIA TYPE: Spinal Refer to Anesthesia Record ESTIMATED BLOOD LOSS: 100 PATHOLOGY: none sent TOURNIQUET TIME: 0 COMPLICATIONS: None Patient was transported to: PACU Patient's condition: stable Implants: 1. Depuy Attune Cementless Cruciate Retaining Femoral Component, Size 8 2. Depuy Attune Cementless Fixed Bearing Tibial Component, Size 8 3. Depuy Attune 8x6 CR/FB Poly 4. Depuy Attune Patellar Component, Size 38 Indications: I have seen Zach in clinic for symptoms of knee arthritis, confirmed with radiographic findings. He has exhausted nonoperative methods and was having significant limitations in daily function and desired better function and less pain. He had a successful knee replaced on the left side approximate 4 and half months ago. I discussed the technical details of a knee replacement. I explained the risks of the procedure to include, but not limited to, bleeding, infection, pain, stiffness, fracture, damage to nerves and vessels, damage to muscles and tendons, loosening, need for repeat procedure, blood clot and cardiopulmonary demise. Despite these risks, Zach elected to proceed. Findings: There was significant signs of arthritis throughout the knee, mostly involving the medial side but also throughout the lateral compartment and the patellofemoral compartment. Procedure Description: Zach was greeted in the preoperative holding area where the correct side was identified and marked. The consent was reviewed with the patient and signed. The history and physical was updated. All questions were answered. Preoperative medications were administered: Acetaminophen 1000mg, Celebrex 400mg, and Gabapentin 300mg. An adductor canal block was then administered by the anesthesia team in the PACU. He was taken back to the operating room. A spinal anesthestic was then administered. The patient was placed into the supine position on the operating room table. A nonsterile tourniquet was placed high onto the leg but only used for cementing. Posts were placed for positioning during the procedure. All bony prominences were well padded. Prophylactic antibiotics in the form of Cefazolin were administered. 1g of Tranxemic Acid was given intravenously within 30 minutes of incision. The right leg was then prepped with Chloraprep and draped in a standard fashion with impervious stockinette. A second prep with Chloraprep was performed prior to application of Iodine impregnated skin protection. A timeout to confirm correct identity, side and site, procedure, allergies, anesthesia, and medical concerns was performed. With the knee in some flexion, a midline incision was made overlying the knee. Full thickness skin flaps were raised once the extensor mechanism was encountered. These were raised medially and laterally. Any bleeding was controlled with electrocautery. Once the extensor mechanism was fully exposed, a medial parapatellar arthrotomy was performed in a flexed position. All bleeding from the arthrotomy and the geniculate arteries was coagulated. A medial subperiosteal peel was performed with electrocautery to the midcoronal plane. Due to the significant varus deformity the entire medial tibial plateau was exposed. The fat pad was removed while keeping the patellar tendon protected. The anterior distal femur synovium was removed for later visualization. The ACL and PCL were resected and the anterior horn of the lateral meniscus was transected. The knee was then flexed with the patella everted. Large osteophytes from the tibia were removed. Large osteophytes from the femur were removed. Using a step drill, and based on preoperative templating, the femoral canal was entered. This was done with a step drill without any difficulty. The intramedullary distal femoral cut guide was inserted, set to a 6 degree valgus cut and 9mm cut thickness. The distal femoral cut guide was then held in position and pinned. With the soft tissues protected, the distal cut was performed. This was passed over a few times to ensure a planar cut. I then turned attention to the tibia. The extramedullary guide was placed onto the leg. The distal aspect was slid medial to adjust for position of center of ankle and stay in line with shaft of the tibia. Approximately 3-5 degrees of posterior slope was kept in the proximal cutting guide. The center of the guide was aligned with the PCL. The stylus was used to assess cut thickness. The medial side, most involved side, was set for a 4mm cut. This was then held in position and pinned into place with 2 additional pins and a cross pin for stability. The medial and lateral collateral ligaments were protected and the cut was performed. With this completed, it was assessed and noted to be of appropriate dimensions. The guide was removed. A spacer block was inserted and the knee was brought into extension. The 6mm spacer block provided full extension, without hyperextension and with stability of both the medial and lateral collateral ligaments was assessed. The pins from the femur and the tibia were then removed. The distal femur was then sized. The anterior stylus was placed onto the lateral ridge of the anterior femur. This indicated a size 8 femur. The external rotation of the guide was adjusted to 3 degrees to match the epicondylar axis, perpendicular to Enoch?s line. The 4-in-1 cutting guide was the placed. The posterior medial femur cut was evaluated and appeared of good thickness. The spacer block was inserted underneath the cutting guide and stability was confirmed in 90 degrees of flexion. An tres wing was used to confirm appropriate position of the anterior cut to avoid notching. This cutting guide was ensured to be flush on the cut surface and then pinned into place with headed pins. While protecting the soft tissues, quad tendon, and collateral ligaments, the anterior and posterior cuts were performed with a saw. The central two pins were removed and the posterior and anterior chamfers were cut next. The notch-cutting guide was placed. This was pinned to lateralize the femoral component as much as possible while keeping it flush on the cut surface. This was then pinned into position. A reciprocating saw was used to make the notch cut. A rasp smoothed the cut surfaces. The medial and lateral menisci were removed. A trial femoral component was then inserted, impacted down to the cut surfaces, and the lug holes were drilled. A provisional trial tibial component was placed and the knee was brought through range of motion. There was noted to be excellent extension and flexion. There was no significant instability. The patella was tracking without thumbs. A size 6mm polyethylene component provided the best range of motion and stability with less than 2mm gapping with medial and lateral stress and full extension without significant hyperextension. The tibial cut surface was fully exposed. The tibia was then sized as a 8. The tibia had been previously marked during trialing to correspond to the center of the tibial component to help with rotation. The trial was aligned to this mary, approximately rotated to the medial 1/3rd of the tibial tubercle. The trial was pinned into place. The tibia was prepared with a reamer and a keel punch and lug holes. The knee was then brought into extension and the patella was measured as 28mm. Using the patellar clamp and cut guide, this was resected to a flat surface with at least 13mm of thickness remaining. The size 38 patella fit the best. This was oriented and then clamped into position. The lugs were drilled. The trial components were removed. The final components were opened on the back table. The periosteal and capsular tissues, especially posteriorly, around the knee were then systematically injected with a periarticular cocktail consisting of 246mg of Ropivacaine, 0.5mg of Epinephrine, 0.08mg of Clonidine, and 30mg of Ketorolac, diluted to 100cc. On the back table, with the implants opened, the cement was mixed. One batch of high viscosity cement was prepared with vacuum assistance. After the cement was ready a small amount was placed on the cut surface of the patella and the patellar button was clamped into position and held. While the cement was hardening, the cementless knee components were placed. Starting with the tibial component, the tibia was subluxed anteriorly and the lug holes of the component were lined up. The tibia was then impacted with an impactor and mallet until the tibial component was in contact with the tibia. The final polyethylene component was inserted. Then, the femoral component was inserted. The lug holes were aligned and the component was impacted into position. The knee was irrigated with Surgiphor Betadine solution. This was allowed to sit in the knee for 3 minutes and then it was irrigated out with saline. After the cement had finally cured, approximately 15min, the clamp was removed from the patella and the knee was taken through range of motion. The patella was tracking with a no-thumbs technique. The capsule was then reapproximated with a No. 1 Vicryl at multiple locations. The capsule was finally closed with a No. 2 Stratafix, barbed suture. The second dosing of 1g TXA was started. Deep tissues were then reapproximated with 0 Vicryl and 2-0 Vicryl. The skin was closed with a running 3-0 Monocryl in a subcuticular fashion. This was reinforced with skin glue. A Mepilex silver dressing was applied along with a [id number] OLIVE wrap. A CryoCuff was applied. Zach was transferred to the hospital bed without difficulty an suffering no apparent complication. Zach has a good prognosis. Physical therapy will start today and without restrictions, weight-bearing as tolerated. Aspirin 81mg BID will be used for DVT prophylaxis.
--- NOTE | 2023-07-18 11:43 | PT.INIE ---
PT Notes Visit Reasons: Right Knee Arthritis Physical Therapy Day Surgery Initial Evaluation Date: 07/18/2023 Referring Doctor: NICHOLAS Chew PT Orders: PT CONSULT: S/P Ortho Surgery. S/P R TKA. Precautions: WBAT on the R LE with AD. Patient Profile/Admitting Diagnosis: Zach is a 68-year-old male with degenerative joint disease of the R knee and is status post R total knee arthroplasty on postoperative day 0. PMHX: All Active Problems (Updated 11/16/22 @ 09:05 by Christophe Atkinson RN) Right knee DJD (Acute) DEPO MEDROL 11/16/22 Degenerative arthritis of left knee (Acute) DEPO MEDROL 11/16/22 Chronic pain of left knee (Acute) 03/01/22 [facility] 04/17/22 F/U Orthopedics Spinal stenosis, lumbar region without neurogenic claudication (Acute) Lumbar spondylosis (Acute) Lumbar radiculopathy (Acute) Hypertension (Chronic) Spinal stenosis at L4-L5 level (Acute) Left leg weakness (Acute) Lumbar pain with radiation down left leg (Acute) 10/11/21 Neurosurgery Eczema (Acute) Failure to attend screening for abdominal aortic aneurysm (AAA) (Acute) IFG (impaired fasting glucose) (Acute) Colonoscopy refused (Acute) Opioid use (Acute) Adjustment disorder with depressed mood (Acute 06/07/12) Adjustment disorder, unspecified (Acute 04/20/16) Calculus of kidney (Acute 06/07/12) Calculus of ureter (Acute 05/15/17) Chronic pain syndrome (Acute 03/29/11) 10/25 comm score of 5 negative low risk abuse misuse Hyperlipidemia (Acute 09/09/14) Low back pain with sciatica (Acute 06/07/12) Tobacco dependence syndrome (Acute 03/29/11) 15pk/yrs Unspecified essential hypertension (Acute 06/07/12) FRS 13% Depressive disorder (Chronic 03/29/11) Surgical History (Updated 12/13/20 @ 15:50 by Sona Mena RN) Hx of lithotripsy S/P epidural steroid injection 10/28/2020 Left L3-L4 No relief of symptoms per [facility] Social History/Home Situation: Lives alone in a private home with 2-3 steps to enter with rails on both sides. Independent with all aspects of ADLs prior to surgery. Equipment Owned/DME: [facility] Subjective: Reports 2/10 pain in the left knee at rest and with movement. Denied headache, chest pain, and lightheadedness throughout session. Objective: General Observation: Resting in bed. Laron wraps to left LE. Cryocuff to left knee. TEDS to right leg. Mental Status: A and O x 4 Pain: As above ROM: Right Lower Extremity: Hip flexion WFL. Hip abduction WFL. Knee flexion 0-100 degrees. Ankle dorsiflexion WFL. Ankle plantarflexion WFL. Left Lower Extremity: Hip flexion WFL. Hip abduction WFL. Knee flexion WFL. Ankle dorsiflexion WFL. Ankle plantarflexion WFL. Strength: Right Lower Extremity: Hip flexors 5/5. Hip abductors 5/5. Knee flexors 3-/5. Knee extensors 3/5. Ankle dorsiflexors 5/5. Ankle plantarflexors 5/5. Left Lower Extremity:Hip flexors 4/5. Hip abductors 4/5. Knee flexors 5/5. Knee extensors 5/5. Ankle dorsiflexors 5/5. Ankle plantarflexors 5/5. Sensation: Intact as to pain and light pressure in B LE Bed Mobility/Transfers: Minimal cueing provided for use of B hands as needed for support, movement sequence, AD management, and and posture to reduce fall risk and minimize pain report Supine to sit standby assist Sit to stand contact-guard assist Stand to sit standby assist Bed to chair standby assist Gait: Facilitated safe and correct performance of level surface ambulation covering a distance of 150 feet using front wheeled walker with reciprocal step to heel-toe gait pattern requiring only standby assist with minimal verbal cueing provided for increased knee flexion on the R during swing phase, AD management, posture, and overall safety to reduce fall risk and minimize pain report. Stairs: Guided patient with safe and correct negotiation of 6 x 4 inch steps and 4 x 6 inch steps holding onto bilateral rails with step-to gait pattern requiring only standby assist with minimal verbal cueing provided for increased knee flexion during ascent of R knee and overall safety to reduce fall risk and minimize pain report. Balance: Static Sitting: Normal Dynamic Sitting: Normal Static Standing: Fair Dynamic Standing: Fair Special Tests: Mobility Limitations Standardized Measure [facility] AM-PAC 6 clicks Basic Mobility Inpatient Short Form: Raw Score: 23 CMS Score: 11% deficit Informed Consent/Education: Patient instructed in purpose of PT consult. Packet containing TKA exercise protocol has been given to patient. Education and training on initial set of exercises that can be done at home have been completed with patient. Trained patient with correct performance of exercises below to maximize motor control, joint flexibility, soft tissue extensibility of the R knee musculature: Access Code: [email or web address] URL: [email or web address] Date: 07/18/2023 Prepared by: Umm Nur Exercises - Supine Quad Set - 1 x daily - 7 x weekly - 1 sets - 10 reps - 5 hold - Supine Heel Slide - 1 x daily - 7 x weekly - 1 sets - 10 reps - 5 hold - Supine Ankle Pumps - 1 x daily - 7 x weekly - 1 sets - 10 reps - 5 hold - Small Range Straight Leg Raise - 1 x daily - 7 x weekly - 1 sets - 10 reps - 5 hold - Seated March - 1 x daily - 7 x weekly - 1 sets - 10 reps - 5 hold Assessment: Patient requires the use of a front-wheeled walker for all mobility ADL performance to maximize independence and reduce fall risk. Patient presents with clinical signs and symptoms consistent with current/admitting diagnoses that have resulted to mobility limitations, gait instability, generalized weakness, and impairment of motor control as demonstrated by the following impairment level findings: 1. Decreased strength to R knee major muscle groups 2. Impaired standing balance 3. Limitation of joint range of motion in R knee Impairments are contributing to the following functional limitations: 1. Inability to safely ambulate without assistive device 2. Increase completion time for mobility ADL performance 3. Increased fall risk Patient is assessed as a 57705 moderate complexity based on the following: History: 68-year-old male with impairment level findings, functional limitations, and past medical history as indicated above Examination: Demonstrable impairment in strength, balance, and mobility level with underlying impairments and functional limitations as documented above Presentation: Evolving Decision Makin moderate complexity Goals: N/A. PT evaluation and 1-2 treatment sessions only for functional mobility training using recommended AD and for HEP instruction. Plan of Care/Treatment Plan: N/A. PT evaluation and 1-2 treatment session only for functional mobility training using recommended AD and for HEP instruction. DISCHARGE RECOMMENDATIONS: Home when medically cleared by orthopedic surgeon. Recommend outpatient PT services in order to optimize functional mobility outcomes and facilitate return to independent community ambulation without an assistive device. TREATMENT CODE/TIME: 37116 x 24 minutes for 1 unit (11:43-12:07). Thank you for the opportunity to participate in the care of this patient. Please sign an return this page within 30 days if you agree with the above POC. Thank you! Physician Signature Date [facility] Umm Nur PT, DPT, CLT [facility] [place], [place]
[2023-07-18] MEDS: oxyCODONE 5 MG TAB PO (11:50)
--- NOTE | 2023-07-18 12:16 | W.ANESPOSTOP ---
Postoperative Evaluation Date, Time and Location Date Performed: 07/18/23 Time Performed: 12:16 Patient Location: Day Surgery Unit Vital Signs Most Recent Imported Vital Signs: Most Recent Vital Signs Temp Pulse Resp BP Pulse Ox 36.5 C 58 L 16 168/93 H 99 07/18/23 11:55 07/18/23 11:55 07/18/23 11:55 07/18/23 11:55 07/18/23 11:55 Pain Score Most Recent Pain Score: Most Recent Pain Score Pain Level 0 07/18/23 11:25 Assessment Mental Status: Awake (Alert & Oriented to Patient Baseline) Airway and Respiratory Function: Patent airway with normal (patient baseline) respiratory exam Cardiovascular Function: Hemodynamically Stable Hydration Status: Adequately Hydrated Nausea & Vomiting: No Nausea or Vomiting Pain: Pain is tolerable per patient Peripheral Nerve Block: Regional nerve block not resolved at time of post operative discharge
== END 2023-07-18 12:48 | disposition home or self-care (01) ==
PROVIDERS: PCP Nurse Practitioner; Visit Provider Student in an Organized Health Care Education/Training Program
PROC: (CPT 27447; principal; 2023-07-18 09:45)
DX: M17.11 Unilateral primary osteoarthritis, right knee (principal); M21.161 Varus deformity, not elsewhere classified, right knee; I10 Essential (primary) hypertension; F17.210 Nicotine dependence, cigarettes, uncomplicated; R73.01 Impaired fasting glucose
CPT/HCPCS: 27447; C1776; 76942; 97162; C9290; J0665; J0690; J1100; J2250; J2371; J2401; J2405; J2704

== ENCOUNTER 2023-08-02 14:20 | Outpatient (CLI) | payer MEDICARE, SELFPAY ==
--- NOTE | 2023-08-02 09:00 | DI.RAD_ITS ---
Exam(s) XR KNEE RT 1V XR STANDING ALIGNMENT EXAM: XR STANDING ALIGNMENT and XR knee RT 1 V CLINICAL HISTORY: 1ST POST OP S/P R TKA. TECHNIQUE: 2D digital imaging was performed. Six images were obtained. COMPARISON: CR XR STANDING ALIGNMENT from 03/22/2023 CR XR KNEE LT 1V from 03/22/2023 FINDINGS: BONES: The hips are well maintained. The patient has bilateral total knee replacements. The orthope dic hardware appear in good position. The ankles are well maintained.There is no significant leg ramesh gth discrepancy. SOFT TISSUE: Normal. IMPRESSION: Stable bilateral total knee replacements. DATA REPOSITORY: RADIATION DOSE DELIVERED:
== END 2023-08-02 14:21 | disposition home or self-care (01) ==
LOC: DIORS 14:21
PROVIDERS: PCP Nurse Practitioner; Visit Provider Student in an Organized Health Care Education/Training Program
DX: Z96.651 Presence of right artificial knee joint (principal); Z47.1 Aftercare following joint replacement surgery
CPT/HCPCS: 73560; 77073

== ENCOUNTER 2023-09-01 07:45 | Emergency (ER) | payer MEDICARE, SELFPAY ==
[2023-09-01 07:54] VITALS: BP 132/78; PULSE 79; RESP 18; TEMP 37.1; O2SAT 96
--- NOTE | 2023-09-01 08:03 | W.ED.GENAD ---
Discharge Plan Disposition Patient Disposition: Home Discharge Details Clinical Impression: Left lower lobe pneumonia Primary Care Provider: Kalli Morgan ED Provider: Anshul Gilliam [place] Meds and New Rx's Prescriptions: New amoxicillin-pot clavulanate 875-125 mg tablet 1 tab PO BID 7 Days Qty: 14 0RF Continued betamethasone dipropionate 0.05 % ointment 1 applic TP BID PRN (Reason: rash arms) Qty: 45 1RF pravastatin 40 mg tablet 40 mg PO QHS Qty: 90 3RF valsartan 320 mg tablet See Rx Instructions .ROUTE .COMPLEX Qty: 90 3RF Dose Instruction: TAKE ONE TABLET BY MOUTH EVERY DAY Rx Instructions: TAKE ONE TABLET BY MOUTH EVERY DAY carvedilol 25 mg tablet See Rx Instructions .ROUTE .COMPLEX Qty: 180 3RF Dose Instruction: TAKE ONE TABLET BY MOUTH TWICE A DAY TAKE WITH MEAL OR FOOD Rx Instructions: TAKE ONE TABLET BY MOUTH TWICE A DAY TAKE WITH MEAL OR FOOD gabapentin 300 mg capsule See Rx Instructions .ROUTE .COMPLEX Qty: 100 3RF Dose Instruction: TAKE 1 CAPSULE BY MOUTH EVERY DAY AT BEDTIME FOR 1 WEEK THEN MAY INCREASE TO 2 CAPSULES AT BEDTIME FOR A WEEK AND THEN 3 CAPSULES AT BEDTIME NGHTLY Rx Instructions: TAKE 1 CAPSULE BY MOUTH EVERY DAY AT BEDTIME FOR 1 WEEK THEN MAY INCREASE TO 2 CAPSULES AT BEDTIME FOR A WEEK AND THEN 3 CAPSULES AT BEDTIME NGHTLY ibuprofen 800 mg tablet 800 mg PO TID PRN (Reason: pain) Qty: 270 1RF oxycodone 5 mg tablet 5 mg PO Q6H MDD 4 tabs PRN (Reason: pain) Qty: 18 0RF aspirin 81 mg tablet,delayed release (DR/EC) 81 mg PO BID Qty: 60 0RF acetaminophen 500 mg tablet 1,000 mg PO Q8H PRN (Reason: pain) Qty: 90 3RF pantoprazole 40 mg tablet,delayed release (DR/EC) 40 mg PO DAILY Qty: 30 0RF Discharge Instructions Additional Instructions: You were seen in the emergency department for your cough. You have a pneumonia for which you are receiving antibiotics. As we discussed please return to the emergency department if you do not urinate least once every 8 hours while you are awake, if you develop fevers and began vomiting or if you develop chest pain. Otherwise please follow-up with your primary care provider next week. For your pain please take medications as follows: 1. Take acetaminophen (Tylenol), 1,000 mg (two 500 mg tabs) every 6 hours Discharge Data Discharge Date/Time-TO BE ENTERED AT DEPARTURE: 09/01/23 10:59 HPI General Date/Time Provider Initiated Documentation: 09/01/23 08:03. HPI Narrative: MDM This is an overall well-appearing normothermic and not tachycardic 68-year-old male with URI symptoms and right eye discharge consistent possibility of pneumonia with conjunctivitis. No chest pain to suggest ACS so I did not order a troponin. No significant shortness of breath so my suspicion was low for PE so I did not order a D-dimer. No trauma to right eye so I was not concerned for globe rupture. COVID influenza and RSV along with other viruses are certainly also a possibility so we will send respiratory viral swab. I considered sepsis however the patient is not hypotensive nor tachycardic nor tachypneic so I did not order blood cultures lactate nor treat empirically with broad-spectrum antibiotics. Will treat with acetaminophen. No pain out of proportion to suggest necrotizing soft tissue infection. No history of reactive airway disease and no significant wheezes so will defer albuterol. I was not suspicious for corneal abrasion so I did not complete a fluorescein exam in the absence of trauma to the right eye. No proptosis to suggest retrobulbar hematoma. Patient's right eye discharge is clear and unilateral so my suspicion for bacterial conjunctivitis is low. As result we will defer antibiotic ointment. No trauma to chest to suggest pneumothorax. Will treat with benzonatate for cough. Patient is posterior oropharynx shows midline uvula so not concerned for peritonsillar abscess. Good range of motion in neck so I am not concerned for retropharyngeal abscess. No pain out of proportion to suggest necrotizing soft tissue infection. No history of immunocompromise to suggest opportunistic infection. No recent travel to suggest atypical infection. No significant pain or swelling in right knee symptoms not concern for infected prosthesis. 9:15 AM Comprehensive metabolic panel showing no ANDREI. Mild hyponatremia. Mild hyperglycemia but no anion gap and normal bicarbonate??not consistent with DKA. Mildly elevated alkaline phosphatase. No right upper quadrant tenderness nor nausea nor vomiting to suggest acute cholecystitis. CBC shows significant leukocytosis. Very mild anemia. No thrombocytopenia. Leukocytosis appears new compared to prior. 3:50 PM Respiratory viral panel negative for COVID influenza and RSV. Chronic conditions affecting the care of the patient: Hypertension History obtained from an outside historian: N/A External record review: N/A Diagnostic interpretations performed by me: Per my independent interpretation chest x-ray shows: Increased left-sided interstitial markings concerning for left lower lobe infiltrate ]Medications: Benzonatate Social determinants of health affecting disposition: N/A Management discussed with: N/A Treatment/interventions considered: Patient has a low port score so appropriate for discharge Response to therapies provided: N/A HPI This is a 68-year-old male with history of hypertension arrived to the emergency department via private vehicle in the setting of cough and URI symptoms for the past approximately 8 days. Patient notes that he had a fever up to 102 ?F was taking temp orally at home. He is also noted a congestion in his chest. He feels that his chest is full. He denies any chest pain. He also has had a clear discharge from his right eye. He denies any trauma to his right eye. No sick contacts. He lives alone. He did have a knee replacement approximately 6 weeks ago. He has been coughing up thick sputum. Exam General: Well-appearing in no acute distress speaking in complete sentences. Head: Normocephalic, atraumatic. Eye: Extraocular eye movements intact. Right eye with clear discharge. No proptosis. No purulent discharge. No scleral icterus. Ear, nose, mouth, throat: Grossly normal inspection. Normal voice, handling secretions normally. Neck: Trachea midline. Cardiovascular: Well-perfused distal extremities. Regular rate and rhythm. Respiratory: Nonlabored respiration. Decreased left-sided breath sounds. Gastrointestinal: Nondistended abdomen. Soft nontender. Musculoskeletal: No edema. Moving all 4 extremities spontaneously. Skin: Normal for age and race, grossly normal temperature and turgor. No acute rash. Neurologic: Alert and appropriate, no apparent acute deficits. Psychiatric: Mood and manner are appropriate. Grooming and personal hygiene are appropriate. Related Data Home Medications Medication Instructions Recorded Confirmed betamethasone dipropionate 0.05 % 1 applic topical BID PRN rash arms 07/12/21 09/01/23 topical ointment #45 grams pravastatin 40 mg tablet 40 mg PO QHS #90 tabs 01/30/22 09/01/23 valsartan 320 mg tablet See Rx Instructions .Route 11/28/22 09/01/23 .COMPLEX #90 tabs carvedilol 25 mg tablet See Rx Instructions .Route 05/21/23 09/01/23 .COMPLEX #180 tabs gabapentin 300 mg capsule See Rx Instructions .Route 06/18/23 09/01/23 .COMPLEX #100 caps ibuprofen 800 mg tablet 800 mg PO TID PRN pain #270 07/11/23 09/01/23 tab-caps acetaminophen 500 mg tablet 1,000 mg (2 x 500 mg) PO Q8H PRN 07/18/23 09/01/23 pain #90 tabs aspirin 81 mg tablet,delayed 81 mg PO BID #60 tabs 07/18/23 09/01/23 release pantoprazole 40 mg tablet,delayed 40 mg PO DAILY #30 tabs 07/18/23 09/01/23 release oxycodone 5 mg tablet 5 mg PO Q6H PRN pain #18 tabs 07/30/23 09/01/23 amoxicillin 875 mg-potassium 1 tab PO BID 7 days #14 tabs 09/01/23 clavulanate 125 mg tablet Previous Rx's Medication Instructions Recorded betamethasone dipropionate 0.05 % 1 applic topical BID PRN rash arms 07/12/21 topical ointment #45 grams pravastatin 40 mg tablet 40 mg PO QHS #90 tabs 01/30/22 valsartan 320 mg tablet See Rx Instructions .Route 11/28/22 .COMPLEX #90 tabs carvedilol 25 mg tablet See Rx Instructions .Route 05/21/23 .COMPLEX #180 tabs gabapentin 300 mg capsule See Rx Instructions .Route 06/18/23 .COMPLEX #100 caps ibuprofen 800 mg tablet 800 mg PO TID PRN pain #270 07/11/23 tab-caps acetaminophen 500 mg tablet 1,000 mg (2 x 500 mg) PO Q8H PRN 07/18/23 pain #90 tabs aspirin 81 mg tablet,delayed 81 mg PO BID #60 tabs 07/18/23 release pantoprazole 40 mg tablet,delayed 40 mg PO DAILY #30 tabs 07/18/23 release oxycodone 5 mg tablet 5 mg PO Q6H PRN pain #18 tabs 07/30/23 amoxicillin 875 mg-potassium 1 tab PO BID 7 days #14 tabs 09/01/23 clavulanate 125 mg tablet Allergies Allergy/AdvReac Type Severity Reaction Status Date / Time chlorthalidone AdvReac Intermediate PINON and Verified 09/01/23 07:58 syncope sertraline AdvReac Intermediate diarrhea Verified 09/01/23 07:58 lisinopril AdvReac Mild cough Verified 09/01/23 07:58 General Stated Complaint: RespSymp JOHANNA: 3 Course Vital Signs Vital signs: Vital Signs Temperature 37.1 C 09/01/23 07:54 Pulse 79 09/01/23 07:54 Respiratory Rate 18 09/01/23 07:54 Blood Pressure 132/78 09/01/23 07:54 Pulse Oximetry 96 09/01/23 07:54 Temperature 37.1 C 09/01/23 07:54 Temperature Source Oral 09/01/23 07:54 Pulse 79 09/01/23 07:54 Respiratory Rate 18 09/01/23 07:54 Respiratory Effort Normal 09/01/23 07:57 Blood Pressure 132/78 09/01/23 07:54 Blood Pressure Position Sitting 09/01/23 07:54 Pulse Oximetry 96 09/01/23 07:54 Oxygen Delivery Method Room Air 09/01/23 07:54 Oxygen Flow Rate 0 09/01/23 07:54 Pain Level 0 09/01/23 07:54 Medical Decision Making Quality:SDOH Health Related Social Needs: No Data to Display PFSH All Active Problems (Updated 09/01/23 @ 10:49 by Anshul Gilliam MD) Left lower lobe pneumonia (Acute) History of total right knee replacement (Acute 07/18/23) Chronic pain of left knee (Acute) [facility] F/U Orthopedics Spinal stenosis, lumbar region without neurogenic claudication (Acute) Lumbar spondylosis (Acute) Lumbar radiculopathy (Acute) Hypertension (Chronic) Spinal stenosis at L4-L5 level (Acute) Left leg weakness (Acute) Lumbar pain with radiation down left leg (Acute) 10/11/21 Neurosurgery Eczema (Acute) Failure to attend screening for abdominal aortic aneurysm (AAA) (Acute) IFG (impaired fasting glucose) (Acute) Colonoscopy refused (Acute) Opioid use (Acute) Unspecified essential hypertension (Acute 06/07/12) FRS 13% Tobacco dependence syndrome (Acute 03/29/11) 15pk/yrs Low back pain with sciatica (Acute 06/07/12) Hyperlipidemia (Acute 09/09/14) Depressive disorder (Chronic 03/29/11) Chronic pain syndrome (Acute 03/29/11) 10/25 comm score of 5 negative low risk abuse misuse Calculus of ureter (Acute 05/15/17) Calculus of kidney (Acute 06/07/12) Adjustment disorder, unspecified (Acute 04/20/16) Adjustment disorder with depressed mood (Acute 06/07/12) Surgical History (Updated 08/02/23 @ 09:07 by Christophe Atkinson RN) History of total left knee replacement (03/06/23) Hx of discectomy L5-S1 x2 S/P epidural steroid injection 10/28/2020 Left L3-L4 No relief of symptoms per [facility] Hx of lithotripsy Family History Father Personal history of malignant neoplasm ? melanoma or lymphoma, Zach not sure. Social History Smoking/Tobacco Use Status: Former Tobacco Use Quit Date: 03/19/17 Smoking risk assessment performed?: Yes Alcohol Intake: former Drug use: Daily Substance use type: marijuana Housing: house 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[employer] What type of physical activity do you participate in: walking Do you feel safe at home: Yes Do you feel safe in your relationship?: Yes Additional Social history: lives alone PAWSS Have you Been Recently Intoxicated or Drunk Within the Last 30 days?: No Have you Ever Experienced Previous Episodes of Alcohol Withdrawal?: No Have you ever Experienced Withdrawal Seizures?: No Have you ever Experienced Delirium Tremens(DT)s?: No Have you ever undergone Alcohol Rehabilitation Treatment (i.e, inpt ot outpatient treatment programs)?: No Have you ever Experienced Blackouts?: No Have you ever Combined Alcohol with other Downers within the last 90 days?: No Have you ever Combined Alcohol with any other Substance of Abuse during the last 90 days?: No Result: 0
--- NOTE | 2023-09-01 08:15 | DI.RAD_ITS ---
Exam(s) XR CHEST 2V PA LATERAL EXAM: XR CHEST 2V PA LATERAL CLINICAL HISTORY: Cough TECHNIQUE: 2D digital imaging was performed of the chest. Two images were obtained. PA and lateral views were obtained. COMPARISON: No exams were available for comparison FINDINGS: MEDIASTINUM: Normal. HEART: Normal. PULMONARY VASCULATURE: Normal. LUNGS: There is linear atelectasis in the left lung base. No focal consolidating infiltrates are see n. PLEURAL SPACE: No pleural effusion or pneumothorax. BONE:Within normal limits for the patient's age. OTHER FINDINGS:Normal. IMPRESSION: No acute pulmonary findings. DATA REPOSITORY: RADIATION DOSE DELIVERED:
[2023-09-01] MEDS: Benzonatate 100 MG CAP PO (08:53)
[2023-09-01] MEDS: Normal Saline 500 ML IV (08:53)
[2023-09-01] MEDS: Acetaminophen 500 MG TAB 1000 MG PO (08:53)
[2023-09-01 09:00] LABS: Abs Immature Grans 0.07 10^3/uL (0.0-0.06); Absolute Eosinophil Count 0.23 10^3/uL (0.0-0.7); Absolute Monocyte Count 1.16 10^3/uL (0.1-0.8); Basophils % 0.3 %; Eosinophils % 1.6 %; HCT 39.7 % (40.0-50.0); HGB 13.3 g/dL (13.5-17.5); Immature Grans % 0.5 %; Lymphocytes % 9.1 %; MCH 31.5 pg (27.0-33.0); MCHC 33.5 % (32.0-36.0); MCV 94 fL (80-95); Monocytes % 7.9 %; Neutrophils % 80.6 %; Platelet Count 274 10^3/uL (130-400); RBC 4.22 10^6/uL (4.36-5.78); RDW 11.9 % (11.8-14.1); WBC 14.65 10^3/uL (4.4-10.8)
[2023-09-01 09:02] LABS: Absolute Basophil Count 0.04 10^3/uL (0.0-0.2); Absolute Lymphocyte Count 1.33 10^3/uL (1.2-3.4); Absolute Neutrophil Count 11.81 10^3/uL (1.2-6.7)
[2023-09-01 09:14] LABS: ALT 42 U/L (16-63); AST 16 U/L (15-37); Albumin 3.6 g/dL (3.4-5.0); Alkaline Phosphatase 134 U/L (46-116); Anion Gap 9.2 mmol/L (3-11); BUN 23 mg/dL (7-18); Bilirubin, Total 0.6 mg/dL (0.2-1.0); CO2 24.8 mmol/L (21.0-32.0); CREATININE 1.3 mg/dL (0.70-1.30); Calcium 9.1 mg/dL (8.5-10.1); Chloride 101 mmol/L (98-107); Estimated GFR 59.84 (mL/min/1.73m2); Glucose 124 mg/dL (74-106); Potassium 4.4 mmol/L (3.5-5.1); Sodium 135 mmol/L (136-145); Total Protein 7.9 g/dL (6.4-8.2)
--- NOTE | 2023-09-01 10:34 | DI.VRAD_ITS ---
PROCEDURE INFORMATION: Exam: XR Chest Exam date and time: 09/01/2023 8:27 AM Age: 68 years old Clinical indication: Other: Cough TECHNIQUE: Imaging protocol: Radiologic exam of the chest. Views: 2 views. COMPARISON: CT RENAL COLIC WO CONTRAST 05/07/2017 5:32 AM FINDINGS: Lungs: Elevation of the left hemidiaphragm with adjacent airspace opacities, likely atelectasis. Pleural spaces: Unremarkable. No pleural effusion. No pneumothorax. Heart/Mediastinum: Normal heart size. Vasculature: Tortuous thoracic aorta. Bones/joints: Degenerative changes of the visualized skeleton. Gastrointestinal tract: Scattered air-fluid levels within the upper abdomen, nonspecific, as the bowel loops are not definitely dilated. IMPRESSION: 1. Scattered air-fluid levels within the upper abdomen, nonspecific, as the bowel loops are not definitely dilated. 2. Elevation of the left hemidiaphragm with adjacent airspace opacities, likely atelectasis. Dictated and Authenticated by: Balbina Steel MD. Ordering:FLORENTIN Landers MD
[2023-09-01 10:47] LABS: COVID-19 PCR Negative (Negative); Influenza A PCR Negative (Negative); Influenza B PCR Negative (Negative); RSV PCR Negative (Negative)
[2023-09-01 10:49] VITALS: BP 132/78; PULSE 79; RESP 18; TEMP 37.1; O2SAT 96
[2023-09-01 10:52] LABS: Source Nasopharynx
[2023-09-01] MEDS: Amoxicillin 875/Clav. 125 TAB PO (10:53)
== END 2023-09-01 10:59 | disposition home or self-care (01) ==
PROVIDERS: Emergency Provider Emergency Medicine; PCP Nurse Practitioner
DX: J18.9 Pneumonia, unspecified organism (principal); E87.1 Hypo-osmolality and hyponatremia; I10 Essential (primary) hypertension; Z87.891 Personal history of nicotine dependence
CPT/HCPCS: 80053; 87637; 99283; 71046; 85025

== ENCOUNTER → 2023-09-13 09:18 | Outpatient (BNVA) | payer MEDICARE, SELFPAY | PROVIDERS: PCP Nurse Practitioner | DX: Z47.1 Aftercare following joint replacement surgery (principal); Z96.651 Presence of right artificial knee joint ==

== ENCOUNTER 2024-04-28 12:34 | Outpatient (CLI) | payer MEDICARE, SELFPAY ==
[2024-04-28 12:52] LABS: Abs Immature Grans 0.04 10^3/uL (0.0-0.06); Absolute Basophil Count 0.05 10^3/uL (0.0-0.2); Absolute Lymphocyte Count 1.88 10^3/uL (1.2-3.4); Absolute Monocyte Count 0.73 10^3/uL (0.1-0.8); Basophils % 0.6 %; Eosinophils % 10.3 %; HCT 44.3 % (40.0-50.0); HGB 14.8 g/dL (13.5-17.5); Immature Grans % 0.5 %; Lymphocytes % 21.6 %; MCH 30.8 pg (27.0-33.0); MCHC 33.4 % (32.0-36.0); MCV 92 fL (80-95); MPV 10.7 fL (8.0-11.0); Monocytes % 8.4 %; Neutrophils % 58.6 %; Platelet Count 286 10^3/uL (130-400); RDW 12.4 % (11.8-14.1); RDW-SD 42.2 fL
[2024-04-28 13:27] LABS: ALT 39 U/L (16-63); AST 15 U/L (15-37); Albumin 3.8 g/dL (3.4-5.0); Alkaline Phosphatase 116 U/L (46-116); Anion Gap 9.1 mmol/L (3-11); BUN 26 mg/dL (7-18); Bilirubin, Total 0.56 mg/dL (0.2-1.0); CO2 27.9 mmol/L (21.0-32.0); CREATININE 1.5 mg/dL (0.70-1.30); Calcium 9.7 mg/dL (8.5-10.1); Calculated LDL 176 mg/dL (<100); Chloride 105 mmol/L (98-107); Cholesterol 266 mg/dL (<200); Estimated GFR 50.08 (mL/min/1.73m2); Glucose 137 mg/dL (74-106); HDL Cholesterol 53 mg/dL (40-60); Potassium 4.5 mmol/L (3.5-5.1); Sodium 142 mmol/L (136-145); Total Protein 8.1 g/dL (6.4-8.2); Triglyceride 187 mg/dL (<150)
[2024-04-28 14:08] LABS: Hemoglobin A1C 6.1 % (<5.7)
== END 2024-04-28 12:35 | disposition home or self-care (01) ==
LOC: LBO 12:38
PROVIDERS: PCP Nurse Practitioner; Visit Provider Nurse Practitioner
DX: I10 Essential (primary) hypertension (principal); R73.01 Impaired fasting glucose; E78.5 Hyperlipidemia, unspecified
CPT/HCPCS: 36415; 80053; 80061; 83036; 85025

== ENCOUNTER 2024-05-16 15:01 | Outpatient (CLI) | payer MEDICARE, SELFPAY ==
[2024-05-23 18:17] LABS: Alternaria Tenuis IgE <0.10 kU/L (<0.70); Aspergillus Fumigatus IgE <0.10 kU/L (<0.70); Bermuda Grass IgE <0.10 kU/L (<0.70); Cat Epithelium IgE <0.10 kU/L (<0.70); Cladosporium IgE <0.10 kU/L (<0.70); Cocklebur IgE <0.10 kU/L (<0.70); Cockroach IgE <0.10 kU/L (<0.70); Cottonwood IgE <0.10 kU/L (<0.70); D Farinae IgE <0.10 kU/L (<0.70); D Pteronyssinus IgE <0.10 kU/L (<0.70); Dog Dander IgE <0.10 kU/L (<0.70); Eastern Sycamore IgE <0.10 kU/L (<0.70); Elm IgE <0.10 kU/L (<0.70); Epicoccum purpurascens IgE <0.10 kU/L (<0.70); Fusarium moniliforme, IgE <0.10 kU/L (<0.70); Giant Ragweed IgE <0.10 kU/L (<0.70); Lamb's Quarter IgE <0.10 kU/L (<0.70); Oak IgE <0.10 kU/L (<0.70); Penicillium chrysogenum IgE <0.10 kU/L (<0.70); Red Sorrel IgE <0.10 kU/L (<0.70); Rough Pigweed IgE <0.10 kU/L (<0.70); Short Ragweed IgE <0.10 kU/L (<0.70); Silver Birch IgE <0.10 kU/L (<0.70); Stemphyllium IgE <0.10 kU/L (<0.70); Timothy Grass IgE <0.10 kU/L (<0.70); Walnut Tree IgE <0.10 kU/L (<0.70); Wormwood IgE <0.10 kU/L (<0.70)
[2024-05-27 09:43] LABS: CLASS 0; Cedar Red IgE <0.10 kU/L (<0.35); Rhodotorula IgE <0.35 kU/L (<0.35)
== END 2024-05-16 15:02 | disposition home or self-care (01) ==
LOC: LBO 15:01
PROVIDERS: PCP Nurse Practitioner; Visit Provider Physician Assistant
DX: Z91.09 Other allergy status, other than to drugs and biological substances (principal); R06.2 Wheezing; J31.0 Chronic rhinitis; R09.81 Nasal congestion; T48.5X5A Adverse effect of other anti-common-cold drugs, initial encounter
CPT/HCPCS: 36415; 86003

== ENCOUNTER 2024-05-27 03:22 | Outpatient (CLI) | payer MEDICARE, SELFPAY ==
[2024-05-27] MEDS: Methacholine 100 MG VIAL IH (17:01)
[2024-05-27] MEDS: Inhaler, Assist Device 1 EACH MC (17:01)
[2024-05-27] MEDS: Albuterol HFA 18 GM 200 PUFF INH IH (17:02)
--- NOTE | 2024-06-01 16:10 | W.PFT ---
Date of service: 05/27/24 Time of Service: 15:16 Pulmonary Function Test Result Indications: Wheeze Interpretation Spirometry: There was a 25% decrease in FEV1 with administration of 1.0mg/mL methacholine. Impression Positive methacholine challenge Clinical Correlation therefore is recommended.
== END 2024-05-27 03:23 | disposition home or self-care (01) ==
LOC: RT 03:22
PROVIDERS: PCP Nurse Practitioner; Visit Provider Student in an Organized Health Care Education/Training Program
DX: R06.2 Wheezing (principal); R06.02 Shortness of breath
CPT/HCPCS: 94060; 94070; 95070; J7674

== ENCOUNTER → 2024-12-10 09:42 | Outpatient (BNVA) | payer MEDICARE, SELFPAY | PROVIDERS: PCP Nurse Practitioner; Referring Provider Nurse Practitioner; Visit Provider Internal Medicine Pulmonary Disease | DX: J45.40 Moderate persistent asthma, uncomplicated (principal); R05.9 Cough, unspecified; Z87.891 Personal history of nicotine dependence | CPT/HCPCS: 36415; 99215 ==

== ENCOUNTER 2024-12-10 17:14 | Outpatient (REF) | payer MEDICARE, SELFPAY ==
[2024-12-10 11:13] LABS: Abs Immature Grans 0.01 10^3/uL (0.0-0.06); HCT 40.7 % (40.0-50.0); HGB 13.6 g/dL (13.5-17.5); Immature Grans % 0.1 %; MCH 30.6 pg (27.0-33.0); MCHC 33.4 % (32.0-36.0); MCV 92 fL (80-95); MPV 11.5 fL (8.0-11.0); Platelet Count 225 10^3/uL (130-400); RBC 4.44 10^6/uL (4.36-5.78); RDW 12.8 % (11.8-14.1); RDW-SD 42.8 fL; WBC 8.13 10^3/uL (4.4-10.8)
== END 2024-12-10 17:15 | disposition home or self-care (01) ==
LOC: LBN 17:14
PROVIDERS: PCP Nurse Practitioner; Visit Provider Internal Medicine Pulmonary Disease
DX: J45.40 Moderate persistent asthma, uncomplicated (principal)
CPT/HCPCS: 85025

== ENCOUNTER 2024-12-19 04:22 | Outpatient (CLI) | payer MEDICARE, SELFPAY ==
--- NOTE | 2024-12-19 06:15 | DI.RAD_ITS ---
Exam(s) XR CHEST 2V PA LATERAL EXAM: XR CHEST 2V PA LATERAL CLINICAL HISTORY: dyspnea, asthma,r06.00. TECHNIQUE: 2D digital imaging was performed. COMPARISON: CR,XR XR CHEST 2V PA LATERAL from 09/01/2023 FINDINGS: 2 views: Heart size is upper normal. The mediastinum is not widened. Mildly tortuous descending thoracic aorta is again noted. Lungs are clear. No infiltrates nor pleural effusions. IMPRESSION: No acute pulmonary findings.No significant change compared to 09/01/2023. DATA REPOSITORY: RADIATION DOSE DELIVERED:
--- NOTE | 2024-12-19 09:00 | DI.US_ITS ---
APPROVED REPORT EXAM: Comprehensive 2D, Doppler, and color-flow Echocardiogram Patient Location: Out-Patient Claims Representative: Juan Ansari RDCS (AE) Indications: Dyspnea, leg swelling Other Information Study Quality: Adequate. Technically limited study due to body habitus. Conclusion Normal left ventricular wall thickness and chamber size. Ejection fraction is 60%. Wall motion is normal Normal right ventricular size and function Both atria are normal in size Aortic valve is mildly sclerotic and trileaflet. There is mild aortic regurgitation Mildly dilated aortic root and ascending aorta Wall motion Left Ventricle The left ventricle is normal size. The left ventricular systolic function is normal. The left ventricular ejection fraction is within the normal range. There is normal left ventricular wall thickness. There is normal LV segmental wall motion. There is no ventricular septal defect visualized. LVEF is 55-60%. Right Ventricle The right ventricle is normal size. The right ventricular systolic function is normal. Atria The left atrium size is normal. The right atrium size is normal. The interatrial septum is intact with no evidence for an atrial septal defect. Aortic Valve The aortic valve is mildly sclerotic. There is no aortic valvular stenosis. Mild aortic regurgitation. Mitral Valve The mitral valve is normal in structure. No evidence of mitral valve stenosis. Trace mitral regurgitation. Tricuspid Valve The tricuspid valve is normal in structure. There is no tricuspid valve stenosis. Pulmonic Valve The pulmonary valve is normal in structure. There is no pulmonic valvular stenosis. Trace to mild pulmonic regurgitation. Great Vessels Aortic root is mildly dilated. The ascending aorta is mildly dilated. Aortic arch is normal in caliber. IVC is normal in size and collapses >50% with inspiration. Pericardium There is no pericardial effusion. 2D Dimensions IVSD d PLAX 1.00 cm M: 0.6-1.2 Ao Root d 3.83 cm M: 3.1 - 3.7 LVPW d PLAX 0.95 cm M: 0.6 - 1.2 Ao Asc Diam d 3.78 cm M: 2.6 - 3.4 LVID d PLAX 7.35 cm M: 4.2 - 5.8 LVDs 4.94 cm M: 2.5 - 4.0 LV EF Teichholz 59.7 % FS 32.78 % LV EDV (Teich) 284.7 mL LV ESV (Teich) 114.8 mL Stroke Vol Index (Teich) 75.49 M-Mode TAPSE 2.34 cm (M/F) >1.7 Auto EF LV EDV A4C 158.0 mL LV EDV A2C 122.4 mL LV EDV BP 142.6 mL LV ESV A4C 70.9 mL LV ESV A2C 48.6 mL LV ESV BP 59.0 mL LVEF(%) A4C 55.1 % LVEF(%) A2C 60.3 % LVEF(%) BP 58.6 % LV SV A4C 87.1 ml LV SV A2C 73.9 ml LV SV BP 83.7 ml LV CO A4C 5.5 L/min LV CO A2C 4.5 L/min LV CO BP 5.0 L/min HR A4C 62.83 BPM HR A2C 61.44 BPM LV EDV Index (BP) LA Volume LA Length A4C 4.8 cm LA Length A2C 4.7 cm LA Area A4C s 13.26 cm2 LA Area A2C s 13.43 cm2 LA Vol A4C A-L 30.86 mL LA Vol A2C A-L 32.60 mL LA Vol Biplane A-L 32.2 mL LA Vol/BSA A4C A-L LA Vol/BSA A2C A-L LA Vol/BSA BP A-L 14.3 mL/m2 LA Vol A4C MOD 28.7 mL LA Vol A2C MOD 30.5 mL LA Vol BP MOD 29.8 mL LV Diastology MV E' medial 0.084 (>0.07 m/s) MV E Vmax 0.56 (0.4-1.3 m/s) MV E/E' MED 6.68 (<14) MV A Vmax 0.65 (0.4-1.3 m/s) MV E' lateral 0.116 (>0.1 m/s) E/A Ratio 0.9 MV E/E' LAT 4.87 (<14) MV E' Average 0.100 m/s MV E/E'(average) 5.64 Aortic Valve AoV Vmax 1.28 m/s LVOT Vmax 0.91 m/s AoV Peak Grad 43.6 mmHg LVOT Peak Grad 3.3 mmHg AoV Area (Vmax) 2.73 cm2 LVOT VTI 0.232 m AoV VTI 0.301 m LVOT Mean Grad 1.9 mmHg AoV Mean Diego. 0.86 m/s LVOT SV 89.04 mL AoV Mean Grad 3.4 mmHg LVOT Diam s 2.20 cm AoV Area (VTI) 2.96 cm2 AV Regurg Peak Gr. 6.52 mmHg Velocity Ratio 0.71 AR Decel [place] 2.1m/sec2 AR DT 2103 msec AR PHT 610 msec AR Vmax 4.50 m/s Mitral Valve MV DT 272 (160-240 msec) Pulmonary Valve PV Vmax 1.15 (0.5-1.5 m/s) RVOT Vmax 0.64 m/s PV Peak Grad 5.3 mmHg RVOT Peak Gr. 1.6 mmHg PV Mean Diego 0.68 m/s RVOT VTI 0.154 m PV Mean Grad 2.2 mmHg RVOT Mean Gr. 0.9 mmHg
== END 2024-12-19 04:42 ==
LOC: DI 04:22
PROVIDERS: PCP Nurse Practitioner; Visit Provider Internal Medicine Pulmonary Disease
DX: R06.00 Dyspnea, unspecified (principal); I35.0 Nonrheumatic aortic (valve) stenosis
CPT/HCPCS: 93306; 71046

== ENCOUNTER 2024-12-20 01:15 | Emergency (ER) | payer MEDICARE, SELFPAY ==
--- NOTE | 2024-12-20 01:18 | ED.GENADUL_ITS ---
Discharge Plan Disposition Patient Disposition: Home Condition: Stable Discharge Details Clinical Impression: Calculus of proximal left ureter, Right renal stone Primary Care Provider: Kalli Morgan ED Provider: Justyn Castillo [place] Meds and New Rx's Prescriptions: New tamsulosin 0.4 mg capsule 0.4 mg PO DAILY Qty: 14 0RF oxycodone 5 mg tablet 5 mg PO Q6H PRNQty: 10 0RF Continued betamethasone dipropionate 0.05 % ointment 1 applic TP BID PRN (Reason: rash arms) Qty: 45 1RF carvedilol 25 mg tablet See Rx Instructions .ROUTE .COMPLEX Qty: 180 3RF Dose Instruction: TAKE ONE TABLET BY MOUTH TWICE A DAY TAKE WITH MEAL OR FOOD Rx Instructions: TAKE ONE TABLET BY MOUTH TWICE A DAY TAKE WITH MEAL OR FOOD valsartan 320 mg tablet See Rx Instructions .ROUTE .COMPLEX Qty: 90 3RF Dose Instruction: TAKE ONE TABLET BY MOUTH EVERY DAY Rx Instructions: TAKE ONE TABLET BY MOUTH EVERY DAY budesonide-formoterol 160-4.5 mcg/actuation HFA aerosol inhaler See Rx Instructions .ROUTE .COMPLEX Qty: 10.2 3RF Dose Instruction: INHALE 2 PUFFS BY MOUTH TWO TIMES A DAY Rx Instructions: INHALE 2 PUFFS BY MOUTH TWO TIMES A DAY montelukast 10 mg tablet See Rx Instructions .ROUTE .COMPLEX Qty: 30 2RF Dose Instruction: TAKE ONE TABLET BY MOUTH EVERY DAY Rx Instructions: TAKE ONE TABLET BY MOUTH EVERY DAY gabapentin 300 mg capsule See Rx Instructions .ROUTE .COMPLEX Qty: 90 0RF Dose Instruction: TAKE 1-2 CAPSULES BY MOUTH ONCE DAILY AT BEDTIME NEEDED FOR LUMBAR SPINE PAIN Rx Instructions: TAKE 1-2 CAPSULES BY MOUTH ONCE DAILY AT BEDTIME NEEDED FOR LUMBAR SPINE PAIN ezetimibe 10 mg tablet See Rx Instructions .ROUTE .COMPLEX Qty: 30 2RF Dose Instruction: TAKE ONE TABLET BY MOUTH EVERY DAY Rx Instructions: TAKE ONE TABLET BY MOUTH EVERY DAY ibuprofen 800 mg tablet See Rx Instructions .ROUTE .COMPLEX Qty: 270 1RF Dose Instruction: TAKE ONE TABLET BY MOUTH THREE TIMES A DAY NEEDED FOR PAIN Rx Instructions: TAKE ONE TABLET BY MOUTH THREE TIMES A DAY NEEDED FOR PAIN albuterol sulfate 90 mcg/actuation HFA aerosol inhaler See Rx Instructions .ROUTE .COMPLEX Qty: 8.5 5RF Dose Instruction: INHALE TWO PUFFS BY MOUTH EVERY 6 HOURS NEEDED FOR SHORTNESS OF BREATH OR WHEEZING Rx Instructions: INHALE TWO PUFFS BY MOUTH EVERY 6 HOURS NEEDED FOR SHORTNESS OF BREATH OR WHEEZING acetaminophen 500 mg tablet 1,000 mg PO Q8H PRN (Reason: pain) Qty: 90 3RF Discharge Instructions Instructions: Kidney Stone, Adult ED, Opioids for Short-Term Treatment of Pain ED Additional Instructions: You have a 5 mm proximal ureteral stone causing some obstruction on the left side. You have a large renal pelvis stone which will need to be addressed at some point in the future. For now we will manage the left stone medical therapy and pain control abdomen. Please take tamsulosin once a day. Alternate ibuprofen with acetaminophen every 4 hours. Use oxycodone for severe pain, do not drive or drink alcohol while using the oxycodone. Follow-up with urology this week, call office on Sunday. Return to the ED for any uncontrolled pain, persistent vomiting, fever or chills. Referrals: Matthew Gillis MD [ [facility] STAFF PHYSICIAN, Urology] HPI General Mode of arrival: ambulatory . Date/Time Provider Initiated Documentation: 12/20/24 01:16 . Limitations to Documentation: no limitations . Information obtained by: patient, RN notes reviewed and old records reviewed . HPI Narrative: Patient presents to the with complaints of abdominal pain. Had some discomfort in the back yesterday. [place] better. The day today but developed significant pain mostly to the left abdomen this evening. Does have a history of kidney stones and this feels the same. Denies any fever. Denies vomiting but is nauseated. Has not noticed any blood in his urine. Some stones in the past and others have required interventions. Denies chest pain or shortness of breath. Related Data Home Medications ?Medication ?Instructions ?Recorded ?Confirmed betamethasone dipropionate 0.05 % 1 applic topical BID PRN rash arms 07/12/21 12/20/24 topical ointment #45 grams acetaminophen 500 mg tablet 1,000 mg (2 x 500 mg) PO Q 8H PRN 07/18/23 12/20/24 pain #90 tabs carvedilol 25 mg tablet See Rx Instructions .Route 0 05/12/24 12/20/24 .COMPLEX #180 tabs valsartan 320 mg tablet See Rx Instructions .Route 0 05/12/24 12/20/24 .COMPLEX #90 tabs budesonide-formoterol HFA 160 See Rx Instructions .Rou te 10/30/24 12/20/24 mcg-4.5 mcg/actuation aerosol .COMPLEX #10.2 grams inhaler gabapentin 300 mg capsule See Rx Instructions .Route 0 11/12/24 12/20/24 .COMPLEX #90 caps montelukast 10 mg tablet See Rx Instructions .Route 0 11/12/24 12/20/24 .COMPLEX #30 tabs ezetimibe 10 mg tablet See Rx Instructions .Route 0 11/27/24 12/20/24 .COMPLEX #30 tabs ibuprofen 800 mg tablet See Rx Instructions .Route 0 12/03/24 12/20/24 .COMPLEX #270 tabs albuterol sulfate 90 mcg/actuation See Rx Instructions .Route 12/17/24 12/20/24 aerosol inhaler .COMPLEX #8.5 grams oxycodone 5 mg tablet 5 mg PO Q6H PRN #10 tabs 07/11 tamsulosin 0.4 mg capsule 0.4 mg PO DAILY #14 caps 07/11 Previous Rx's ?Medication ?Instructions ?Recorded betamethasone dipropionate 0.05 % 1 applic topical BID PRN rash arms 07/12/21 topical ointment #45 grams acetaminophen 500 mg tablet 1,000 mg (2 x 500 mg) PO Q 8H PRN 07/18/23 pain #90 tabs carvedilol 25 mg tablet See Rx Instructions .Route 0 05/12/24 .COMPLEX #180 tabs valsartan 320 mg tablet See Rx Instructions .Route 0 05/12/24 .COMPLEX #90 tabs budesonide-formoterol HFA 160 See Rx Instructions .Rou te 10/30/24 mcg-4.5 mcg/actuation aerosol .COMPLEX #10.2 grams inhaler gabapentin 300 mg capsule See Rx Instructions .Route 0 11/12/24 .COMPLEX #90 caps montelukast 10 mg tablet See Rx Instructions .Route 0 11/12/24 .COMPLEX #30 tabs ezetimibe 10 mg tablet See Rx Instructions .Route 0 11/27/24 .COMPLEX #30 tabs ibuprofen 800 mg tablet See Rx Instructions .Route 0 12/03/24 .COMPLEX #270 tabs albuterol sulfate 90 mcg/actuation See Rx Instructions .Route 12/17/24 aerosol inhaler .COMPLEX #8.5 grams oxycodone 5 mg tablet 5 mg PO Q6H PRN #10 tabs 07/11 tamsulosin 0.4 mg capsule 0.4 mg PO DAILY #14 caps 07/11 Allergies Allergy/AdvReac Type Severity Reaction Status Date / Time chlorthalidone AdvReac Intermediate PINON and Verified 12/20/24 01:23 syncope sertraline AdvReac Intermediate diarrhea Verified 12/20/24 01:23 lisinopril AdvReac Mild cough Verified 12/20/24 01:23 pravastatin AdvReac forgetful Verified 12/20/24 01:23 General JOHANNA: 3 Exam Narrative Exam Narrative: Const: WDWN elderly male in NAD. VS per triage. HEENT: NC/AT. Normal facial exam. Neck: Supple. Trachea midline. Lungs: Normal respiratory effort. Lungs are clear. Cor: RRR without murmur. Good radial pulses. GI: Soft/ND/NT. Back: No CVAT Neuro: A+O x 3. Normal speech, mentation, gait. Cranial nerves II - XII grossly intact. No gross motor or sensory deficit. Ext: No C/C/E. Medical Decision Making Patient presenting to ED with left flank and abdominal pain after having back pain yesterday. Has history of kidney stones and this feels much the same. No fever here or at home that he is aware of. Given his history this is most likely recurrent stone. No real tenderness in the abdomen. Place IV to give fluids and medications, check labs and urinalysis, obtain stool studies. Patient CBC is normal. Chemistries with normal creatinine, slightly elevated BUN at 20, mild anion gap at 13.2 and bicarb at 20.7. Other electrolytes are normal. Urinalysis with blood only. CT scan preliminary radiology read with moderate left hydronephrosis and obstructing 5 mm UPJ stone. He also has mild right hydronephrosis and a large renal pelvis stone measuring 3.2 x 2.1 cm. He is not having any pain or discomfort on the right. Pain is coming from the obstructing 5 mm UPJ stone. He does some initial 4 mg of morphine. Required a second dose of morphine and given ketorolac given normal renal function. Patient reports pain much improved after the Toradol. He would like to try passing the stone on his own. We discussed the large right renal pelvis stone. He will likely need to be addressed at some point in the future. Will start him on tamsulosin. Will have him alternate acetaminophen with ibuprofen and supplement with oxycodone for severe pain if needed over the weekend. Follow-up with urology, call Sunday for appointment. Return precautions provided. Medical Records Medical records reviewed: Yes I reviewed the patient's medical records. Medical records narrative: [facility] site Imaging Data Radiologic Study: Attestation: I personally reviewed and interpreted this imaging study as follows: Imaging: CT Scan Radiologist's impression: IMPRESSION: 1. Moderate left hydronephrosis with an obstructing 5 mm stone in the UPJ. 2. Mild right hydronephrosis with a large stone in the right renal pelvis measuring up to 3.2 x 2.1 cm. 3. Colonic diverticulosis without evidence of acute diverticulitis. 4. Non-acute findings are described above. Thank you for allowing us to participate in the care of your patient. Dictated and Authenticated by: Javan Resendiz MD Lab Data Lab results reviewed: Yes I reviewed the patient's lab results. Lab results narrative: see [facility] All Active Problems (Updated 12/20/24 @ 03:56 by Justyn Castillo MD) Right renal stone (Acute) Calculus of proximal left ureter (Acute) Cough (Acute) Moderate persistent asthma (Acute) Dyspnea (Acute) Rhinitis medicamentosa (Acute) Chronic nasal congestion (Acute) Chronic rhinitis (Acute) Environmental allergies (Acute) Wheezing (Acute) Chronic pain of left knee (Acute) 03/01/[facility] 04/17[facility]22 F/U Orthopedics Spinal stenosis, lumbar region without neurogenic claudication (Acute) Lumbar spondylosis (Acute) Lumbar radiculopathy (Acute) Hypertension (Chronic) Spinal stenosis at L4-L5 level (Acute) Left leg weakness (Acute) Lumbar pain with radiation down left leg (Acute) 10/11/21 Neurosurgery Eczema (Acute) Failure to attend screening for abdominal aortic aneurysm (AAA) (Acute) IFG (impaired fasting glucose) (Acute) Colonoscopy refused (Acute) Opioid use (Acute) Unspecified essential hypertension (Acute 06/07/12) FRS 13% Tobacco dependence syndrome (Acute 03/29/11) 15pk/yrs Low back pain with sciatica (Acute 06/07/12) Hyperlipidemia (Acute 09/09/14) Depressive disorder (Chronic 03/29/11) Chronic pain syndrome (Acute 03/29/11) 10/25 comm score of 5 negative low risk abuse misuse Calculus of ureter (Acute 05/15/17) Calculus of kidney (Acute 06/07/12) Adjustment disorder, unspecified (Acute 04/20/16) Adjustment disorder with depressed mood (Acute 06/07/12) Surgical History 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 melanoma or lymphoma, Zach not sure. Social History Smoking/Tobacco Use Status: Former Tobacco Use Quit Date: 03/19/17 Smoking risk assessment performed?: Yes Alcohol Intake: current Alcohol Intake frequency: 3 or more drinks per day Alcohol type: beer Drug use: Daily Substance use type: marijuana Housing: house 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[employer], Night [employer] What type of physical activity do you participate in: walking Do you feel safe at home: Yes Do you feel safe in your relationship?: Yes Additional Social history: lives alone
[2024-12-20 01:19] VITALS: BP 194/102; PULSE 70; RESP 16; TEMP 36.2; O2SAT 96
[2024-12-20 01:37] LABS: Glucose Negative (Negative)
[2024-12-20] MEDS: Ondansetron 4 MG/2 ML VIAL IVP (01:38)
[2024-12-20] MEDS: Normal Saline 1,000 ML 1000 ML IV (01:38)
[2024-12-20 01:39] LABS: Abs Immature Grans 0.05 10^3/uL (0.0-0.06); HCT 40.5 % (40.0-50.0); HGB 13.7 g/dL (13.5-17.5); Immature Grans % 0.5 %; MCH 31.0 pg (27.0-33.0); MCHC 33.8 % (32.0-36.0); MCV 92 fL (80-95); MPV 10.7 fL (8.0-11.0); Platelet Count 225 10^3/uL (130-400); RBC 4.42 10^6/uL (4.36-5.78); RDW 12.5 % (11.8-14.1); RDW-SD 41.7 fL; WBC 9.76 10^3/uL (4.4-10.8)
[2024-12-20] MEDS: MORPHine 4 MG/ML SYR IVP ×2 (01:39→03:19)
[2024-12-20 01:43] LABS: C & S Indicated? No; RBC 20-50 HPF (0-2); WBC Negative HPF (0-5)
[2024-12-20 01:49] VITALS: BP 173/80; PULSE 68; RESP 18; O2SAT 96
[2024-12-20 01:52] LABS: Anion Gap 13.3 mmol/L (3-11); BUN 20 mg/dL (7-18); CO2 20.7 mmol/L (21.0-32.0); Calcium 9.0 mg/dL (8.5-10.1); Chloride 102 mmol/L (98-107); Estimated GFR 72.67 (mL/min/1.73m2); Glucose 162 mg/dL (74-106); Potassium 4.6 mmol/L (3.5-5.1); Sodium 136 mmol/L (136-145)
--- NOTE | 2024-12-20 02:05 | DI.CT_ITS ---
Exam(s) CT RENAL COLIC WO EXAM: CT RENAL COLIC WO CLINICAL HISTORY: left flank pain. TECHNIQUE: Imaging Protocol: Axial computed tomography images with coronal and sagittal reformatted images were created and reviewed CONTRAST MATERIAL: Intravenous: none Oral: None COMPARISON: CT RENAL COLIC WO CONTRAST from 05/07/2017 FINDINGS: VISUALIZED LUNG BASES: No significant nodules nor pleural effusions evident. ABDOMEN: There is no ascites. LIVER: There are no obvious focal hepatic lesions evident of this noninfused study. GALLBLADDER/BILIARY: No obvious gallbladder pathology. CBD is not dilated. PANCREAS: No evidence of pancreatic mass nor dilatation of the pancreatic duct. SPLEEN: Spleen is not enlarged. No obvious intrasplenic lesions. ADRENALS: There are no significant adrenal masses. KIDNEYS:There are few tiny calculi in left kidney but there is also a 4 millimeter calculus in the upper left ureter UPJ level with mild hydronephrosis above this level. Left ureter below this level is not dilated and there no additional radiopaque calculi in the lower left ureter nor within the nondi stended urinary bladder. In the opposite-right kidney there is a huge edge shaped calculus in the renal pelvis extending to the UPJ, this measuring 3 x 2 cm. There is no obvious hydronephrosis on the right side above this level. There are no additional calculi in the right kidney. The right ureter below this level is not dilated and does not contain calculi.. There are no calculi in the nondistended urinary bladder. Bladder wall is uniformly thickened both out of obvious focal mass and there are no radiopaque calculi in the bladder lumen. No solid renal masses. No prominent cysts. ABDOMINAL AORTA: Abdominal aorta is not enlarged. LYMPH NODES: There is no retroperitoneal nor paraaortic adenopathy. ABDOMINAL WALL: Fat only containing umbilical hernia. Also fat only containing bilateral inguinal hernias. GI: There is no evidence of bowel obstruction, free air, nor abscess. PELVIS: LYMPH NODES: There is no intrapelvic nor inguinal adenopathy. GI: Retrocecal but otherwise unremarkable appendix. No appendicitis.There are diverticuli in the left side of the colon at and below the level of the splenic flexure and in the sigmoid but there is no evidence of acute diverticulitis. URINARY BLADDER: Uniformly thickened bladder wall. No radiopaque calculi. REPRODUCTIVE: Prostate size upper normal. Seminal vesicles unremarkable. OSSEOUS: There is chronic disc space narrowing at L5-S1 level again noted. There is indentation of the superior endplate of L2 which was not evident in 2018. There does not appear to be an acute vertebral fracture. There is some degenerative change in the hips. IMPRESSION: 1. Bilateral nephrolithiasis. There is an obstructing 4 millimeter calculus in the upper left ureter at the UPJ with mild hydronephrosis above this level. 2. There is a huge egg shaped 3 x 2 cm calculus at and above the right ureteropelvic junction. No obvious hydronephrosis on the right side. There are no calculi seen in in either ureter below the UPJ nor within the nondistended urinary bladder. 3. Bladder wall is uniformly thickened but no discrete focal mass and there are no radiopaque calculi in the urinary bladder lumen. Prostate size appears upper normal. 4. Sigmoid diverticulosis. No diverticulitis. No appendicitis. RADIATION DOSE DELIVERED: 1,140.31mGy.cm Total DLP DATA REPOSITORY: All CT scans at this facility are submitted to the National Radiology Data Registry (NRDR) Dose Index Registry (DIR) with the [employer] (ACR). RADIATION OPTIMIZATION: All CT scans at this facility use at least one of these dose optimization techniques: automated exposure control; mA and/or kV adjustment per patient size (includes targeted exams where dose is matched to clinical indication); or iterative reconstruction.
[2024-12-20] MEDS: Ketorolac 15 MG/ML VIAL IVP (03:18)
--- NOTE | 2024-12-20 03:34 | DI.VRAD_ITS ---
PROCEDURE INFORMATION: Exam: CT Abdomen And Pelvis Without Contrast Exam date and time: 12/20/2024 1:47 AM Age: 69 years old Clinical indication: Abdominal pain; Left flank pain TECHNIQUE: Imaging protocol: Computed tomography of the abdomen and pelvis without contrast. Radiation optimization: All CT scans at this facility use at least one of these dose optimization techniques: automated exposure control; mA and/or kV adjustment per patient size (includes targeted exams where dose is matched to clinical indication); or iterative reconstruction. COMPARISON: MR LUMBAR SPINE WO 10/03/2021 10:41 AM FINDINGS: Lungs: There is mild bibasilar atelectasis. Heart: Coronary artery calcified atherosclerosis. Liver: The liver is mildly enlarged measuring 20.0 cm in craniocaudal dimension. There is a diffuse borderline mild decrease in hepatic parenchymal density, suggesting mild fatty infiltration. Gallbladder and biliary ducts: Normal. No calcified stones. No ductal dilation. Pancreas: Normal. No ductal dilation. Spleen: Normal. No splenomegaly. Adrenal glands: Normal. No mass. Kidneys and ureters: Moderate left hydronephrosis with an obstructing 5 mm stone in the UPJ. Other smaller nonobstructive left renal stone. Mild right hydronephrosis with a large stone in the right renal pelvis measuring up to 3.2 x 2.1 cm on image 5:57. Mild bilateral perinephric edema. Stomach and bowel: Colonic diverticulosis without evidence of acute diverticulitis. No bowel obstruction. No mucosal thickening or pneumatosis. Appendix: Normal appendix. No acute appendicitis. Intraperitoneal space: Unremarkable. No free air. No significant fluid collection. Vasculature: The vasculature demonstrates diffuse moderate atherosclerotic calcification. No abdominal aortic aneurysm. Lymph nodes: Unremarkable. No enlarged lymph nodes. Urinary bladder: The bladder is mostly decompressed. Reproductive: Unremarkable as visualized. Bones/joints: No acute fracture. Remote compression fracture with mild loss of height of the L2 vertebral body. Multilevel chronic degenerative changes of the lower thoracic and lumbar spine. Mild bilateral hip degenerative arthritis. Soft tissues: There is a small fat-containing umbilical hernia. Small bilateral fat-containing inguinal hernias. IMPRESSION: 1. Moderate left hydronephrosis with an obstructing 5 mm stone in the UPJ. 2. Mild right hydronephrosis with a large stone in the right renal pelvis measuring up to 3.2 x 2.1 cm. 3. Colonic diverticulosis without evidence of acute diverticulitis. 4. Non-acute findings are described above. Dictated and Authenticated by: Javan Resendiz MD. Orderin Jonathan Alejandra MD
[2024-12-20] MEDS: oxyCODONE 5 MG TAB PO (04:12)
[2024-12-20] MEDS: Tamsulosin 0.4 MG CAPCR PO (04:12)
[2024-12-20 04:41] VITALS: BP 155/65; PULSE 70; RESP 18; O2SAT 96
== END 2024-12-20 04:42 | disposition home or self-care (01) ==
PROVIDERS: Emergency Provider Emergency Medicine; PCP Nurse Practitioner
DX: N20.2 Calculus of kidney with calculus of ureter (principal)
CPT/HCPCS: 36415; 80048; 96361; 96374; 96375; 96376; 99284; 74176; 81003; 81015; 85025; J1885; J2270; J2405

== ENCOUNTER → 2024-12-31 08:09 | Outpatient (BNVA) | payer MEDICARE, SELFPAY | PROVIDERS: PCP Nurse Practitioner; Referring Provider Nurse Practitioner; Visit Provider Nurse Practitioner Gerontology | DX: N20.0 Calculus of kidney (principal) | CPT/HCPCS: 99215 ==

== ENCOUNTER 2024-12-31 10:04 | Outpatient (REF) | payer MEDICARE, SELFPAY ==
[2025-01-08 11:09] LABS: Interpretation 100% Uric acid.
== END 2024-12-31 10:05 | disposition home or self-care (01) ==
LOC: LBN 10:04
PROVIDERS: PCP Nurse Practitioner; Visit Provider Nurse Practitioner Gerontology
DX: N20.0 Calculus of kidney (principal)
CPT/HCPCS: 82365

== ENCOUNTER → 2025-01-07 09:09 | Outpatient (BNVA) | payer MEDICARE, SELFPAY | PROVIDERS: PCP Nurse Practitioner; Referring Provider Nurse Practitioner; Visit Provider Internal Medicine Pulmonary Disease | DX: J45.50 Severe persistent asthma, uncomplicated (principal); R06.00 Dyspnea, unspecified; Z87.891 Personal history of nicotine dependence | CPT/HCPCS: 99214 ==

== ENCOUNTER 2025-02-17 18:40 | Emergency (ER) | payer MEDICARE, SELFPAY ==
[2025-02-17] VITALS (17 sets, daily range): BP systolic 161–186; BP diastolic 91–106; PULSE 75–98; RESP 16–20; TEMP 37–37.3; O2SAT 91–97
--- NOTE | 2025-02-17 19:00 | ED.GENADUL_ITS ---
Discharge Plan Disposition Patient Disposition: Home Condition: Improving Discharge Details Clinical Impression: Duodenitis Primary Care Provider: Jefferson Be ED Provider: Cristo Kenny Home Meds and New Rx's Prescriptions: New pantoprazole 40 mg tablet,delayed release (DR/EC) 40 mg PO DAILY Qty: 30 3RF Held ibuprofen 800 mg tablet See Rx Instructions .ROUTE .COMPLEX Qty: 270 1RF Hold Instructions: Resume on 04/15/25. Dose Instruction: TAKE ONE TABLET BY MOUTH THREE TIMES A DAY NEEDED FOR PAIN Rx Instructions: TAKE ONE TABLET BY MOUTH THREE TIMES A DAY NEEDED FOR PAIN No Action betamethasone dipropionate 0.05 % ointment 1 applic TP BID PRN (Reason: rash arms) Qty: 45 1RF carvedilol 25 mg tablet See Rx Instructions .ROUTE .COMPLEX Qty: 180 3RF Dose Instruction: TAKE ONE TABLET BY MOUTH TWICE A DAY TAKE WITH MEAL OR FOOD Rx Instructions: TAKE ONE TABLET BY MOUTH TWICE A DAY TAKE WITH MEAL OR FOOD valsartan 320 mg tablet See Rx Instructions .ROUTE .COMPLEX Qty: 90 3RF Dose Instruction: TAKE ONE TABLET BY MOUTH EVERY DAY Rx Instructions: TAKE ONE TABLET BY MOUTH EVERY DAY gabapentin 300 mg capsule See Rx Instructions .ROUTE .COMPLEX Qty: 90 0RF Dose Instruction: TAKE 1-2 CAPSULES BY MOUTH ONCE DAILY AT BEDTIME NEEDED FOR LUMBAR SPINE PAIN Rx Instructions: TAKE 1-2 CAPSULES BY MOUTH ONCE DAILY AT BEDTIME NEEDED FOR LUMBAR SPINE PAIN budesonide-formoterol 160-4.5 mcg/actuation HFA aerosol inhaler See Rx Instructions .ROUTE .COMPLEX Qty: 10.2 3RF Dose Instruction: INHALE 2 PUFFS BY MOUTH TWO TIMES A DAY Rx Instructions: INHALE 2 PUFFS BY MOUTH TWO TIMES A DAY ezetimibe 10 mg tablet See Rx Instructions .ROUTE .COMPLEX Qty: 30 2RF Dose Instruction: TAKE ONE TABLET BY MOUTH EVERY DAY Rx Instructions: TAKE ONE TABLET BY MOUTH EVERY DAY albuterol sulfate 90 mcg/actuation HFA aerosol inhaler See Rx Instructions .ROUTE .COMPLEX Qty: 8.5 5RF Dose Instruction: INHALE TWO PUFFS BY MOUTH EVERY 6 HOURS NEEDED FOR SHORTNESS OF BREATH OR WHEEZING Rx Instructions: INHALE TWO PUFFS BY MOUTH EVERY 6 HOURS NEEDED FOR SHORTNESS OF BREATH OR WHEEZING potassium citrate 10 mEq (1,080 mg) tablet extended release 10 meq PO BID Qty: 180 0RF methylprednisolone [Medrol (Estuardo)] 4 mg tablets,dose pack See Rx Instructions PO PER PKG DIR Rx Instructions: PO PER PKG DIR montelukast 10 mg tablet See Rx Instructions .ROUTE .COMPLEX Qty: 30 2RF Dose Instruction: TAKE ONE TABLET BY MOUTH EVERY DAY Rx Instructions: TAKE ONE TABLET BY MOUTH EVERY DAY acetaminophen 500 mg tablet 1,000 mg PO Q8H PRN (Reason: pain) Qty: 90 3RF Discharge Instructions Instructions: Gastritis Stand Alone Forms: Portal Information Discharge Data Discharge Physician: Cristo Kenny HPI General Date/Time Provider Initiated Documentation: 02/17/25 19:00 . HPI Narrative: Patient presents emergency department complaining of 2 weeks of abdominal bloating and reports epigastric abdominal pain which she refers to as a burning pain. Reports that he has been very gassy and had some episode of diarrhea but after Thanksgiving he feels that he is very bloated and his abdomen is distended Related Data Home Medications ?Medication ?Instructions ?Recorded ?Confirmed betamethasone dipropionate 0.05 % 1 applic topical BID PRN rash arms 07/12/21 02/17/25 topical ointment #45 grams acetaminophen 500 mg tablet 1,000 mg (2 x 500 mg) PO Q 8H PRN 07/18/23 02/17/25 pain #90 tabs carvedilol 25 mg tablet See Rx Instructions .Route 0 05/12/24 02/17/25 .COMPLEX #180 tabs valsartan 320 mg tablet See Rx Instructions .Route 0 05/12/24 02/17/25 .COMPLEX #90 tabs budesonide-formoterol HFA 160 See Rx Instructions .Rou te 10/30/24 02/17/25 mcg-4.5 mcg/actuation aerosol .COMPLEX #10.2 grams inhaler ezetimibe 10 mg tablet See Rx Instructions .Route 0 11/27/24 02/17/25 .COMPLEX #30 tabs ibuprofen 800 mg tablet See Rx Instructions .Route 0 12/03/24 02/17/25 .COMPLEX #270 tabs albuterol sulfate 90 mcg/actuation See Rx Instructions .Route 12/17/24 02/17/25 aerosol inhaler .COMPLEX #8.5 grams potassium citrate 10 mEq (1,080 10 meq PO BID #180 tab s 01/12/25 02/17/25 mg) tablet,extended release gabapentin 300 mg capsule See Rx Instructions .Route 1 04/07/24 02/17/25 .COMPLEX #90 caps methylprednisolone 4 mg tablets in See Rx Instructions PO PER PKG DIR 02/06/25 02/17/25 a dose pack (Medrol (Estuardo)) montelukast 10 mg tablet See Rx Instructions .Route 1 04/11/24 02/17/25 .COMPLEX #30 tabs pantoprazole 40 mg tablet,delayed 40 mg PO DAILY #30 t abs 02/17/25 release Previous Rx's ?Medication ?Instructions ?Recorded betamethasone dipropionate 0.05 % 1 applic topical BID PRN rash arms 07/12/21 topical ointment #45 grams acetaminophen 500 mg tablet 1,000 mg (2 x 500 mg) PO Q 8H PRN 07/18/23 pain #90 tabs carvedilol 25 mg tablet See Rx Instructions .Route 0 05/12/24 .COMPLEX #180 tabs valsartan 320 mg tablet See Rx Instructions .Route 0 05/12/24 .COMPLEX #90 tabs budesonide-formoterol HFA 160 See Rx Instructions .Rou te 10/30/24 mcg-4.5 mcg/actuation aerosol .COMPLEX #10.2 grams inhaler ezetimibe 10 mg tablet See Rx Instructions .Route 0 11/27/24 .COMPLEX #30 tabs ibuprofen 800 mg tablet See Rx Instructions .Route 0 12/03/24 .COMPLEX #270 tabs albuterol sulfate 90 mcg/actuation See Rx Instructions .Route 12/17/24 aerosol inhaler .COMPLEX #8.5 grams potassium citrate 10 mEq (1,080 10 meq PO BID #180 tab s 01/12/25 mg) tablet,extended release gabapentin 300 mg capsule See Rx Instructions .Route 1 04/07/24 .COMPLEX #90 caps montelukast 10 mg tablet See Rx Instructions .Route 1 04/11/24 .COMPLEX #30 tabs pantoprazole 40 mg tablet,delayed 40 mg PO DAILY #30 t abs 02/17/25 release Allergies Allergy/AdvReac Type Severity Reaction Status Date / Time chlorthalidone AdvReac Intermediate PINON and Verified 02/17/25 18:51 syncope sertraline AdvReac Intermediate diarrhea Verified 02/17/25 18:51 lisinopril AdvReac Mild cough Verified 02/17/25 18:51 pravastatin AdvReac forgetful Verified 02/17/25 18:51 General Stated Complaint: Abd Prob JOHANNA: 3 Review of Systems Narrative: Review of Systems: Constitutional: No fevers, chills, sweats Eye: No recent visual problems ENT: No ear pain, nasal congestion, sore throat Respiratory: No shortness of breath, cough Cardiovascular: No Chest pain, palpitations, syncope Gastrointestinal: No nausea, vomiting Genitourinary: No hematuria Jono/Lymph: Negative for bruising tendency, swollen lymph glands Endocrine: Negative for excessive thirst, excessive hunger Musculoskeletal: No back pain, neck pain, joint pain, muscle pain, decreased range of motion Integumentary: No rash, pruritus, abrasions Neurologic: Alert & oriented X 4 Psychiatric: No anxiety, depression Exam Narrative Exam Narrative: Exam; vitals signs as reported above normal Constitutional; In no acute distress, afebrile General: cooperative, healthy appearing, comfortable and no acute distress HEENT: Head: normal to inspection, no palpable skull fracture and normocephalic atraumatic Eyes: : appearance normal, both eyes and all related structures EOM intact bilaterally Pupils: PERRL : conjunctiva normal Direct ophthalmoscopy: normal light reflex, normal conjunctiva, normal visual acuity Ears: Normal TM, normal external canal Nose: normal no rhinorreha Neck no JVD, supple non tender Neck: normal visual inspection, full ROM and no lymphadenopathy Chest: normal inspection of the chest Respiratory : normal respiratory effort and able to speak in complete sentences no wheezing no rales Cardio Rate: regular rate, rhythm: regular rhythm normal heart sounds S1 and S2 no murmurs, gallops, or rubs GI : normal to inspection, normal bowel sounds, soft, non tender, non distended, no organomegaly Back/Spine/ no CVA tenderness Thoracic/Lumbar Spine: no tenderness or deformities Skin no rashes or lesions Neuro: patient alert oriented x 4 and no meningeal signs, Cranial Nerves: CN's II-XI intact bilaterally, Cognition: normal cognition, Speech: speech normal, Gait: normal gait, Depp tendon reflexes normal 2+ muscle strength 5/5 bilaterally Extremities, no edema, full range of motion, normal strength Course Vital Signs Vital signs: Vital Signs Temperature 37.3 C 02/17/25 18:44 Pulse 98 H 02/17/25 18:44 Respiratory Rate 16 02/17/25 18:44 Blood Pressure 167/101 H 02/17/25 18:44 Pulse Oximetry 94 02/17/25 18:44 Temperature 37.3 C 02/17/25 18:44 Temperature Source Oral 02/17/25 18:44 Pulse 98 H 02/17/25 18:44 Respiratory Rate 16 02/17/25 18:44 Blood Pressure 167/101 H 02/17/25 18:44 Blood Pressure Position Sitting 02/17/25 18:44 Pulse Oximetry 94 02/17/25 18:44 Oxygen Delivery Method Room Air 02/17/25 18:44 Oxygen Flow Rate 0 02/17/25 18:44 Pain Level 8 02/17/25 18:44 Medical Decision Making MDM: Summary: Patient presents to the emergency department complaining of 2 weeks of epigastric abdominal pain abdominal bloating denied any nausea vomiting or diarrhea. States that he got aggravated after Thanksgiving. He had labs done which showed no significant abnormality but the CT scan of the abdomen pelvis shows duodenitis. He was given IV pantoprazole in the emergency department with significant proving of his symptoms and will be discharged on pantoprazole p.o. he will need to follow-up with his primary care physician. Patient has never had a colonoscopy or an endoscopy I told him if this is worsens he should see a GI specialist for further intervention. Patient also takes ibuprofen 100 mg regularly and have told him that this could be the cause of the duodenitis and I have expressed him to hold it. He says he would take acetaminophen instead which he also takes for his chronic pains. Data Review Analysis All the data on this patient was reviewed by me including laboratory and imaging studies as well as bedside studies performed by me Independent review of Studies Imaging CT scan as reported above Lab: Labs do not show any abnormality Risk Stratification: Patient with duodenitis who we treated with pantoprazole Differential Diagnosis: 1. Duodenitis 2. Gastritis 3. Acute pancreatitis 4. Cholecystitis 5. Consultants: Shared disposition: Patient assents to disposition instructions and will follow-up with his PCP according Impression: Medical Records Medical records reviewed: Yes I reviewed the patient's medical records. Imaging Data Radiologic Study: Attestation: I personally reviewed and interpreted this imaging study as follows: Imaging: CT Scan Radiologist's impression: [id number] Creator : KAN RIOS Dictator : KAN RIOS Payroll Secretary : Public Information Coordinator : KAN RIOS Approver2 : Report Date : 02/17/2025 21:37:35 Exam(s) CT ABDOMEN PELVIS W EXAM: CT ABDOMEN PELVIS W CLINICAL HISTORY: epigastric pain, distention TECHNIQUE: Imaging Protocol: Axial computed tomography images with coronal and sagittal reformatted images were created and reviewed. CONTRAST MATERIAL: Intravenous: Omnipaque 350 Contrast volume:100 mL Oral: No COMPARISON: CT RENAL COLIC WO CONTRAST from 05/07/[address] RENAL COLIC WO from 12/20/2024 FINDINGS: ABDOMEN: Lung Bases: There is scarring in the lung bases. Liver: Diffuse fatty infiltration of the liver. No measurable mass. Portal, Superior Mesenteric, and Splenic Veins: Unremarkable. Gallbladder and Biliary Tract: No radiodense calculus or dilation. Pancreas: Normal density, no abnormal calcifications or inflammatory process. Spleen: Normal. Adrenals: No masses seen. Kidneys: Normal size, contour and axis. There is again seen a 3 cm round stone in the right renal pelvis. There is no hydronephrosis. The previously seen left renal stones are not visualized on this examination. No masses seen. Abdominal Aorta: Abdominal portion non-dilated. Atherosclerotic calcification is present. Bowel: There is diverticulosis of the colon but no evidence of acute diverticulitis. There is bowel wall thickening and wall enhancement seen in the 1st 2nd and 3rd portions of the duodenum. Inflammatory stranding is seen in the surrounding soft tissues. Appendix is unremarkable. Peritoneal Cavity: No ascites, collection or mesenteric inflammatory response. No free air. Lymph Nodes: Within normal limits. Bones: Within normal limits for the patient's age. Soft Tissues: There is a small fat containing umbilical hernia. There are small fat containing bilateral inguinal hernias. PELVIS: Bladder: Symmetric distention, no gross wall thickening. Reproductive Organs: Unremarkable as visualized. Lymph Nodes: Within normal limits. Bones: Within normal limits for the patient's age. IMPRESSION: 1. Findings suggestive of acute duodenitis. 2. Colonic diverticulosis without evidence of acute diverticulitis. 3. Right nephrolithiasis. 4. The preliminary [facility] report was reviewed. RADIATION DOSE DELIVERED: 908.91mGy.cm Total DLP DATA REPOSITORY: All CT scans at this facility are submitted to the National Radiology Data Registry (NRDR) Dose Index Registry (DIR) with the [employer] (A[employer]). RADIATION OPTIMIZATION: All CT scans at this facility use at least one of these dose optimization techniques: automated exposure control; mA and/or kV adjustment per patient size (includes targeted exams where dose is matched to clinical indication); or iterative reconstruction. Lab Data Lab results reviewed: Yes I reviewed the patient's lab results. ECG Data Attestation: I personally reviewed and interpreted this ECG (s) as follows: Prior ECG tracings: available for review Interpretation: HR 79 Sinus rhythm...normal P axis, V-rate 60- 99 LAD, consider left anterior fascicular block...axis(240,-40), S>R II III aVF Nonspecific T abnormalities, inferior leads...T <-0.10mV, II III aVF PFSH All Active Problems (Updated 02/17/25 @ 22:17 by Cristo Kenny MD) Duodenitis (Acute) Severe persistent asthma (Acute) Cough (Acute) Dyspnea (Acute) Rhinitis medicamentosa (Acute) Chronic nasal congestion (Acute) Chronic rhinitis (Acute) Environmental allergies (Acute) Wheezing (Acute) Chronic pain of left knee (Acute) [facility] 04/[facility]22 F/U Orthopedics Spinal stenosis, lumbar region without neurogenic claudication (Acute) Lumbar spondylosis (Acute) Lumbar radiculopathy (Acute) Hypertension (Chronic) Spinal stenosis at L4-L5 level (Acute) Left leg weakness (Acute) Lumbar pain with radiation down left leg (Acute) 10/11/21 Neurosurgery Eczema (Acute) Failure to attend screening for abdominal aortic aneurysm (AAA) (Acute) IFG (impaired fasting glucose) (Acute) Colonoscopy refused (Acute) Opioid use (Acute) Unspecified essential hypertension (Acute 06/07/12) FRS 13% Tobacco dependence syndrome (Acute 03/29/11) 15pk/yrs Low back pain with sciatica (Acute 06/07/12) Hyperlipidemia (Acute 09/09/14) Depressive disorder (Chronic 03/29/11) Chronic pain syndrome (Acute 03/29/11) 10/25 comm score of 5 negative low risk abuse misuse Calculus of ureter (Acute 05/15/17) Calculus of kidney (Acute 06/07/12) Adjustment disorder, unspecified (Acute 04/20/16) Adjustment disorder with depressed mood (Acute 06/07/12) Medical History Moderate persistent asthma Surgical History 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 melanoma or lymphoma, Zach not sure. Social History Smoking/Tobacco Use Status: Former Tobacco Use Quit Date: 03/19/17 Smoking risk assessment performed?: Yes Alcohol Intake: current Alcohol Intake frequency: 3 or more drinks per day Alcohol type: beer Drug use: Daily Substance use type: marijuana Housing: house 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[employer], [employer] What type of physical activity do you participate in: walking Do you feel safe at home: Yes Do you feel safe in your relationship?: Yes Additional Social history: lives alone PAWSS Have you Been Recently Intoxicated or Drunk Within the Last 30 days?: Yes Have you Ever Experienced Previous Episodes of Alcohol Withdrawal?: No Have you ever Experienced Withdrawal Seizures?: No Have you ever Experienced Delirium Tremens(DT)s?: No Have you ever undergone Alcohol Rehabilitation Treatment (i.e, inpt ot outpatient treatment programs)?: No Have you ever Experienced Blackouts?: No Have you ever Combined Alcohol with other Downers within the last 90 days?: No Have you ever Combined Alcohol with any other Substance of Abuse during the last 90 days?: No Positive Blood Alcohol level on Presentation? [PCS.BAL]: No Evidence of Increased Autonomic Activity (i.e. HR>120, tremor, sweating, agitation, nausea)?: No Result: 1
--- NOTE | 2025-02-17 19:17 | DI.CT_ITS ---
Exam(s) CT ABDOMEN PELVIS W EXAM: CT ABDOMEN PELVIS W CLINICAL HISTORY: epigastric pain, distention TECHNIQUE: Imaging Protocol: Axial computed tomography images with coronal and sagittal reformatted images were created and reviewed. CONTRAST MATERIAL: Intravenous: Omnipaque 350 Contrast volume:100 mL Oral: No COMPARISON: CT RENAL COLIC WO CONTRAST from 05/07/[address] RENAL COLIC WO from 12/20/2024 FINDINGS: ABDOMEN: Lung Bases: There is scarring in the lung bases. Liver: Diffuse fatty infiltration of the liver. No measurable mass. Portal, Superior Mesenteric, and Splenic Veins: Unremarkable. Gallbladder and Biliary Tract: No radiodense calculus or dilation. Pancreas: Normal density, no abnormal calcifications or inflammatory process. Spleen: Normal. Adrenals: No masses seen. Kidneys: Normal size, contour and axis. There is again seen a 3 cm round stone in the right renal pelvis. There is no hydronephrosis. The previously seen left renal stones are not visualized on this examination. No masses seen. Abdominal Aorta: Abdominal portion non-dilated. Atherosclerotic calcification is present. Bowel: There is diverticulosis of the colon but no evidence of acute diverticulitis. There is bowel wall thickening and wall enhancement seen in the 1st 2nd and 3rd portions of the duodenum. Inflammatory stranding is seen in the surrounding soft tissues. Appendix is unremarkable. Peritoneal Cavity: No ascites, collection or mesenteric inflammatory response. No free air. Lymph Nodes: Within normal limits. Bones: Within normal limits for the patient's age. Soft Tissues: There is a small fat containing umbilical hernia. There are small fat containing bilateral inguinal hernias. PELVIS: Bladder: Symmetric distention, no gross wall thickening. Reproductive Organs: Unremarkable as visualized. Lymph Nodes: Within normal limits. Bones: Within normal limits for the patient's age. IMPRESSION: 1. Findings suggestive of acute duodenitis. 2. Colonic diverticulosis without evidence of acute diverticulitis. 3. Right nephrolithiasis. 4. The preliminary [facility] report was reviewed. RADIATION DOSE DELIVERED: 908.91mGy.cm Total DLP DATA REPOSITORY: All CT scans at this facility are submitted to the National Radiology Data Registry (NRDR) Dose Index Registry (DIR) with the [employer] (ACR). RADIATION OPTIMIZATION: All CT scans at this facility use at least one of these dose optimization techniques: automated exposure control; mA and/or kV adjustment per patient size (includes targeted exams where dose is matched to clinical indication); or iterative reconstruction.
[2025-02-17] MEDS: Normal Saline 1,000 ML 1000 ML IV (19:44)
[2025-02-17] MEDS: Pantoprazole 40 MG VIAL IVP (19:45)
[2025-02-17 19:47] LABS: Abs Immature Grans 0.05 10^3/uL (0.0-0.06); HCT 40.8 % (40.0-50.0); HGB 14.0 g/dL (13.5-17.5); Immature Grans % 0.6 %; MCH 30.9 pg (27.0-33.0); MCHC 34.3 % (32.0-36.0); MCV 90 fL (80-95); MPV 11.2 fL (8.0-11.0); Platelet Count 191 10^3/uL (130-400); RBC 4.53 10^6/uL (4.36-5.78); RDW 12.1 % (11.8-14.1); RDW-SD 39.7 fL; WBC 8.60 10^3/uL (4.4-10.8)
--- NOTE | 2025-02-17 20:00 | RT.EKG_ITS ---
APPROVED REPORT Exam: Resting ECG Reason for Exam: epigastric pain Patient Location: E HR:79 bpm ECG Measurements Heart Rate 79 AXIS AL 167 P 60 QRSd 94 QRS -69 QT 378 T [id number] QTc 435 Conclusion Sinus rhythm...normal P axis, V-rate 60- 99 LAD, consider left anterior fascicular block...axis(240,-40), S>R II III aVF Nonspecific T abnormalities, inferior leads...T <-0.10mV, II III aVF
[2025-02-17 20:04] LABS: Lipase 29 U/L (<53); Magnesium 2.0 mg/dL (1.6-2.6); Troponin I 6 ng/L (<54)
[2025-02-17 20:06] LABS: ALT 50 U/L (10-49); AST 26 U/L (<34); Albumin 4.3 g/dL (3.2-5.0); Alkaline Phosphatase 96 U/L (46-116); Anion Gap 12.2 mmol/L (3-11); BUN 28 mg/dL (9-23); Bilirubin, Total 0.80 mg/dL (0.2-1.2); CO2 17.8 mmol/L (20.0-31.0); Calcium 8.6 mg/dL (8.3-10.6); Chloride 108 mmol/L (98-107); Glucose 117 mg/dL (74-106); Potassium 3.8 mmol/L (3.5-5.1); Sodium 138 mmol/L (136-145); Total Protein 7.3 g/dL (5.7-8.2)
[2025-02-17] MEDS: Normal Saline Flush 10 ML SYR IVP (20:29)
[2025-02-17] MEDS: Normal Saline - Diluent 50 ML VIAL IJ (20:29)
[2025-02-17] MEDS: Omnipaque 350 MG/ML 100 ML BTL IJ (20:29)
--- NOTE | 2025-02-17 21:10 | DI.[facility]_ITS ---
PROCEDURE INFORMATION: Exam: CT Abdomen And Pelvis With Contrast Exam date and time: 02/17/2025 8:20 PM Age: 69 years old Clinical indication: Abdominal pain; Epigastric; Additional info: Epigastric pain x 3 days, distention TECHNIQUE: Imaging protocol: Computed tomography of the abdomen and pelvis with contrast. Contrast material: OMNI 350; Contrast volume: 100 ml; Contrast route: INTRAVENOUS (IV); COMPARISON: CT RENAL COLIC WO 12/20/2024 1:47 AM FINDINGS: Lungs: Linear bibasilar opacities most consistent with subsegmental atelectasis. Liver: There is a diffuse decrease in hepatic parenchymal density, consistent with fatty infiltration. Gallbladder and biliary ducts: No gallstones. Nondistended. No wall thickening. Pancreas: The pancreas is unremarkable. Spleen: No splenomegaly. No lesions. Adrenal glands: Normal. No mass. Kidneys and ureters: 2.3 cm right renal pelvis renal stone. No hydronephrosis. Stomach and bowel: See Intraperitoneal space finding. Appendix: Normal appendix. Intraperitoneal space: Diffuse wall thickening with adjacent mesenteric edema in the 1st and 2nd portion of the duodenum, likely represent enteritis. Vasculature: There is mild diffuse atherosclerotic disease of the abdominal aorta. Lymph nodes: Unremarkable. No enlarged lymph nodes. Urinary bladder: No focal wall thickening of the urinary bladder. Reproductive: Unremarkable as visualized. Bones/joints: The lumbar spine demonstrates moderate degenerative changes at multiple levels. Soft tissues: Moderate-size fat containing umbilical hernia. Bilateral fat containing inguinal hernias. IMPRESSION: Diffuse wall thickening with adjacent mesenteric edema in the 1st and 2nd portion of the duodenum, likely represent enteritis. Chronic noncritical findings as described above. Dictated and Authenticated by: Mirna Garnett MD. Orderin Efraín Lemons MD
== END 2025-02-17 22:29 | disposition home or self-care (01) ==
PROVIDERS: Emergency Provider Emergency Medicine Emergency Medical Services
DX: K29.80 Duodenitis without bleeding (principal); Z87.891 Personal history of nicotine dependence
CPT/HCPCS: 36415; 80053; 83690; 93005; 96361; 96374; 99285; 74177; 83735; 84484; 85025; 93010; J2470; J3490

== ENCOUNTER → 2025-03-05 10:34 | Outpatient (BNVA) | payer MEDICARE, SELFPAY | PROVIDERS: Referring Provider Nurse Practitioner; Visit Provider Physician Assistant Surgical | DX: J45.50 Severe persistent asthma, uncomplicated (principal); R06.00 Dyspnea, unspecified; Z87.891 Personal history of nicotine dependence | CPT/HCPCS: 99214 ==